=== PATIENT | male | born 1945 | race Caucasian/White ===

== ENCOUNTER 2017-04-11 11:15 | Emergency (ER) | payer MEDICARE ==
[~2017-04-11] VITALS: Ht 182.9 cm; Wt 119.0 kg
[~2017-04-11 11:15] MED LIST: ASPIRIN81 MG PO; ATORVASTATIN CA40 MG PO; CELEXA20 MG PO; DICLOFENAC SODI75 MG PO; DIVALPROEX SOD250 MG PO; HYDROXYZ HCL10 MG PO; LASIX20 MG PO; LOPRESSOR 550 MG/TAB PO; METHIMAZOLE5 MG PO; NEURONTIN800 MG PO; OXYCODONE/ACETA1 TAB PO; PENTASA250 MG PO; TRAZODONE50 MG PO
--- NOTE | 2017-04-11 11:32 | NUR ---
PT TO ROOM FOR TREATMENT
[2017-04-11] MEDS ORDERED: XALATAN 0.005%2.5 ML OP (12:03)
[2017-04-11] MEDS ORDERED: ULTRAM50 M1 PO (12:04)
[2017-04-11] MEDS ORDERED: METHIMAZOLE5 MG PO (12:10)
[2017-04-11] MEDS ORDERED: ALLERGY RE50 MCG/ACT (12:11)
[2017-04-11] MEDS ORDERED: TAMSULOSIN0.4 MG PO (12:12)
[2017-04-11 12:13] LABS: HEMATOCRIT 46.4 % (39.0-50.0); HEMOGLOBIN 16.1 g/dl (14.0-18.0); IMMATURE GRANULOCYTES 0.7 % (0.0-1.0); MEAN CELL VOLUME 89.1 fL CALC (80.0-100.0); MEAN CORPUSCULAR HGB 30.9 pG CALC (26.0-32.0); MEAN CORPUSCULAR HGB CONC 34.7 g/L CALC (32.0-36.0); NEUT# 2.89 thou/uL (1.82-7.42); RED BLOOD COUNT 5.21 mill/uL (4.70-6.10); RED CELL DISTRI WIDTH 15.5 % (11.5-15.5)
[2017-04-11] MEDS ORDERED: NEURONTIN800 MG PO (12:13)
[2017-04-11 12:14] LABS: URINE BLOOD DIPSTICK MODERATE (NEGATIVE); URINE COLOR YELLOW; URINE GLUCOSE - DIPSTICK NEGATIVE (NEGATIVE); URINE KETONE NEGATIVE (NEGATIVE); URINE LEUK ESTERASE NEGATIVE (NEGATIVE); URINE NITRITE - DIPSTICK NEGATIVE (Negative); URINE PROTEIN - DIPSTICK 100 mg/dL (NEG-TRACE); URINE SPECIFIC GRAVITY >=1.030
[2017-04-11] MEDS ORDERED: HYDROXYZINE HCL10 MG PO (12:14)
[2017-04-11 12:17] LABS: URINE BILIRUBIN - DIPSTICK NEGATIVE (NEGATIVE); URINE CLARITY CLEAR
--- NOTE | 2017-04-11 12:17 | NUR ---
PT ON CARDIAC/BP/O2 MONITOR. CHANGED INTO GOWN. PT A&Ox4. PT STATES HE LIVES WITH HIS GRANDSON & GRANDSONS TALI. PUPILS PERRLA @3. NEUROS WNL. CARDIAC MURMER AUSCULTATED. BREATHING IS EVEN 7 U
[2017-04-11 12:18] LABS: BARBITURATES NEGATIVE (NEGATIVE); COCAINE NEGATIVE (NEGATIVE); METHADONE NEGATIVE (NEGATIVE); OXCYCODONE NEGATIVE (NEGATIVE); TETRAHYDROCANNABIONOL NEGATIVE (NEGATIVE); TRICYLIC ANTIDEPRESSANTS NEGATIVE (NEGATIVE)
[2017-04-11 12:24] LABS: URINE WBC 0-2 WBC/hpf (0-5)
[2017-04-11 12:36] LABS: ALBUMIN 4.1 g/dL (3.2-5.0); ALKALINE PHOSPHATASE 98 u/l (38-126); ANION GAP 14 (6-22 (CALC)); BILIRUBIN, TOTAL 1.3 mg/dL (0.0-1.4); BUN 27 mg/dL (8-23); BUN/CREATININE RATIO 20 (12-20 (CALC)); CALCIUM 9.4 mg/dL (8.4-10.2); CARBON DIOXIDE 27 mmol/l (22-30); CHLORIDE 103 mmol/l (95-108); CREATININE 1.3 mg/dL (0.7-1.3); GFR 54 ML/MIN (>=60 (CALC)); GFR FOR AFR.AMER. > 60 ML/MIN (>=60 (CALC)); GLUCOSE 94 mg/dL (82-115); SGOT/AST 48 u/l (19-48); SGPT/ALT 31 u/l (11-66); SODIUM 140 mmol/l (137-146)
[2017-04-11 12:45] LABS: MYOGLOBIN 200 ng/mL (0 - 121)
--- NOTE | 2017-04-11 13:42 | NUR ---
PT AWAITING ADMIT ORDERS. IN STABLE CONDITION. WILL CONTINUE TO MONITOR.
--- NOTE | 2017-04-11 14:39 | NUR ---
PT RESTING IN ROOM. WAITING ON ADMIT ROOM. WILL CONTINUE TO MONITOR PT UNTIL TRANSFERED TO ANOTHER UNIT. ALL CURRENTLY WNL.
[2017-04-11 15:01] LABS: TSH, 3RD GENERATION 3.13 uIU/mL (0.47 - 4.68)
--- NOTE | 2017-04-11 15:08 | NUR ---
WALKED INTO PTS ROOM. PT HAD REMOVED HIS CARDIAC/O2/BP MONITOR AND TAKEN OUT HIS IV. PT STATES HE JUST WANTS TO LEAVE. MD & CHARGE NURSE AWARE. IV AREA WRAPPED WITH COBAN BUT PT REFUSED TO SIGN PAPERWORK OR ALLOW ME TO GET SIGNATURES ON PAPERWORK.
--- NOTE | 2017-04-11 15:08 | NUR ---
PT AMBULATED OUT OF ER W/CANE.
[2017-04-11 15:23] VITALS: BP 125/62
== END 2017-04-11 15:23 | disposition left against medical advice (07) ==
LOC: ED 11:15 → ED-I 13:01 → ED 13:01 → ED-I 13:21 → ED 14:05 → MS2 14:06
PROVIDERS: Emergency Medicine; Internal Medicine
DX: R53.1 Weakness (principal); E05.90 Thyrotoxicosis, unspecified without thyrotoxic crisis or storm; I11.0 Hypertensive heart disease with heart failure; I50.9 Heart failure, unspecified; J44.9 Chronic obstructive pulmonary disease, unspecified; N40.0 Benign prostatic hyperplasia without lower urinary tract symptoms; Z95.2 Presence of prosthetic heart valve; Z95.5 Presence of coronary angioplasty implant and graft; Z95.1 Presence of aortocoronary bypass graft; Z91.19 Patient's noncompliance with other medical treatment and regimen; R42 Dizziness and giddiness

== ENCOUNTER 2017-09-11 18:33 | Observation (INO) | payer OTHER, MEDICARE ==
[~2017-09-11] VITALS: Ht 182.9 cm; Wt 134.0 kg
[2017-09-11 17:23] VITALS: BP 167/62
[~2017-09-11 18:33] MED LIST changes: +ALLERGY RE50 MCG/ACT; +HYDROXYZINE HCL10 MG PO; +TAMSULOSIN0.4 MG PO; +ULTRAM50 M1 PO; +XALATAN 0.005%2.5 ML OP
--- NOTE | 2017-09-11 18:35 | NUR ---
TO ROOM 9 VIA W/
[2017-09-11 19:14] LABS: HEMATOCRIT 52.2 % (39.0-50.0); HEMOGLOBIN 15.8 g/dl (14.0-18.0); IMMATURE GRANULOCYTES 0.6 % (0.0-1.0); MEAN CELL VOLUME 83.3 fL CALC (80.0-100.0); MEAN CORPUSCULAR HGB 25.2 pG CALC (26.0-32.0); MEAN CORPUSCULAR HGB CONC 30.3 g/L CALC (32.0-36.0); NEUT# 5.71 thou/uL (1.82-7.42); RED BLOOD COUNT 6.27 mill/uL (4.70-6.10); RED CELL DISTRI WIDTH 15.8 % (11.5-15.5)
[2017-09-11 19:42] LABS: URINE BLOOD DIPSTICK NEGATIVE (NEGATIVE); URINE GLUCOSE - DIPSTICK NEGATIVE (NEGATIVE); URINE KETONE TRACE mg/dL (NEGATIVE); URINE LEUK ESTERASE NEGATIVE (NEGATIVE); URINE NITRITE - DIPSTICK NEGATIVE (Negative); URINE PH 5.5 (4.5-8.0); URINE PROTEIN - DIPSTICK 100 mg/dL (NEG-TRACE); URINE SPECIFIC GRAVITY >=1.030
[2017-09-11 19:43] LABS: URINE BILIRUBIN - DIPSTICK NEGATIVE (NEGATIVE); URINE CLARITY SL CLOUDY; URINE COLOR DK. YELLOW
[2017-09-11 19:49] LABS: URINE CALCIUM OXALATE CRYSTALS MANY lpf; URINE RBC 0-2 RBC/hpf (0-5); URINE WBC 0-2 WBC/hpf (0-5)
[2017-09-11 19:52] LABS: ALBUMIN 3.4 g/dL (3.2-5.0); ALKALINE PHOSPHATASE 87 u/l (38-126); AMYLASE 65 u/l (30-110); ANION GAP 14 (6-22 (CALC)); BILIRUBIN, TOTAL 0.9 mg/dL (0.0-1.4); BUN 17 mg/dL (8-23); BUN/CREATININE RATIO 16 (12-20 (CALC)); CARBON DIOXIDE 32 mmol/l (22-30); CHLORIDE 99 mmol/l (95-108); CREATININE 1.1 mg/dL (0.7-1.3); GFR > 60 ML/MIN (>=60 (CALC)); GFR FOR AFR.AMER. > 60 ML/MIN (>=60 (CALC)); LIPASE 41 u/l (23-300); POTASSIUM 4.3 mmol/l (3.5-5.1); SGOT/AST 18 u/l (19-48); SGPT/ALT 26 u/l (11-66); SODIUM 141 mmol/l (137-146); TOTAL PROTEIN 6.6 g/dL (6.3-8.2)
[2017-09-11 20:04] LABS: MYOGLOBIN 77 ng/mL (0 - 121)
--- NOTE | 2017-09-11 21:15 | NUR ---
UP TO BSC BUT ONLY PASSED FLAATUS.NO DIAARRHEA THUS FAR THIS ER VISIT
--- NOTE | 2017-09-11 22:50 | NUR ---
PHONE REPORT TO LESLIE HARTMAN ON MS
[2017-09-11] MEDS ORDERED: PROSCAR5 MG PO (22:57)
[2017-09-11] MEDS ORDERED: TAMSULOSIN HCL0.4 MG PO (22:58)
[2017-09-11] MEDS ORDERED: DEPO-TESTOS100 MG/ML IM (22:59)
--- NOTE | 2017-09-11 23:05 | NUR ---
TO MS VIA STRETCHER IN STABLE CONDITION
[2017-09-11 23:18] VITALS: BP 171/72
--- NOTE | 2017-09-11 23:18 | NUR ---
PT.ARRIVED TO THE FLOOR VIA WC ACCOMPANIED BY PONCE MULLINS OF ED. PT.APPEARS TO BE IN STABLE CONDITION UPON ARRIVING TO THE FLOOR. V/S ARE BEING ASSESSED. PT.SELF AMBULATED TO STANDING SCALE AND TO BED. PT.IS REQUESTING FOOD AT THIS TIME/PROVIDED. WILL FOLLOW-UP W/ASSESSMENT. PT.IS BEING ORIENTED TO BED,CALL SYSTEM,LIGHT,ROOM,TV AND WIFI.
--- NOTE | 2017-09-12 01:30 | NUR ---
PT.MEDICATED ORDERS PROVIDE AND FOR PAIN REPORTED 5/10 IN LOWER BACK. PT.IS UP W/LIGHTS ON READING ONLINE ON HIS IPAD. DENIES ANY OTHER NEEDS AT THIS TIME.
--- NOTE | 2017-09-12 04:10 | NUR ---
PT.V/S ASSESSED AND TELEMETRY REPOSITIONED. NO S/S OF DISTRESS NOTED AT THIS TIME. CALL LIGHT W/IN REACH AND PT.RETURNING TO SLEEP W/LIGHTS OUT.
[2017-09-12 04:16] VITALS: BP 156/69
--- NOTE | 2017-09-12 07:37 | NUR ---
REPORT RECEIVED FROM PONCE HARTMAN. PT SLEEPING. CALL LIGHT WITHIN REACH.
--- NOTE | 2017-09-12 08:30 | NUR ---
PT SITTING ON SIDE OF BED. REPORTS NAUSEA. DENIES PAIN. NO SOB NOTED. REPORTING OF CONCERNS ENCORUAGED. CALL LIGHT REVIEWED AND IN REACH. DR. COUCH NOTIFIED OF NAUSEA.
[2017-09-12 09:17] VITALS: BP 187/77
[2017-09-12 10:48] LABS: CHOLESTEROL HDL RATIO 3.6 (<4.4 (CALC)); MAGNESIUM 1.9 mg/dL (1.6-2.3)
[2017-09-12 11:21] VITALS: BP 135/36
[2017-09-12 11:27] LABS: C. DIFFICILE TOXIN A&B NEGATIVE (NEGATIVE)
--- NOTE | 2017-09-12 11:30 | NUR ---
PT REPORTS RELIEF OF NAUSEA.
--- NOTE | 2017-09-12 15:12 | NUR ---
PT SLEEPING AT THIS TIME. CALL LIGHT WITHIN REACH.
[2017-09-12 17:23] VITALS: BP 149/63
--- NOTE | 2017-09-12 17:46 | NUR ---
PT SITTING ON SIDE OF BED. REPORTS FEELING MUCH BETTER THIS AFTERNOON. VIBRAMYCIN STARTED. WILL CONTINUE TO MONITOR.
[2017-09-12 19:45] VITALS: BP 149/63; BP 167/92
--- NOTE | 2017-09-12 19:54 | NUR ---
PT SITTING AT THE SIDE OF BED ON PHONE. PT DENIES PAIN. RESP EVEN AND UNLABORED. TELE ON. LUNGS CLEAR/DIMINISHED BILAT. ABD DISTENDED,SOFT; ACTIVE BOWEL SOUNDS. +1 EDEMA NOTED BILAT LEGS, PT ENCOURAGED TO ELEVATE. PEDAL PULSES PALPATED BILAT. IV RAC PATENT; FLUSHED WITHOUT DIFFICULTY. SAFETY PRECAUTIONS REINFORCED. FREQUENT ROUNDS MADE. CALL LIGHT WITHIN REACH.
[2017-09-12 23:20] VITALS: BP 140/74
--- NOTE | 2017-09-13 00:20 | NUR ---
PT SITTING ON SIDE OF BED ON PHONE. PT DENIES ANY PAIN. TELE IN PALCE. CALL LIGHT WITHIN REACH.
--- NOTE | 2017-09-13 04:01 | NUR ---
ASSESSMENT UNCHANGED; RESP EVEN AND UNLABORED. NO DISCOMFORT NOTED. TELE ON. CALL LIGHT WITHIN REACH.
[2017-09-13 05:04] LABS: HEMATOCRIT 51.7 % (39.0-50.0); HEMOGLOBIN 15.9 g/dl (14.0-18.0); IMMATURE GRANULOCYTES 0.9 % (0.0-1.0); MEAN CELL VOLUME 82.1 fL CALC (80.0-100.0); MEAN CORPUSCULAR HGB 25.2 pG CALC (26.0-32.0); MEAN CORPUSCULAR HGB CONC 30.8 g/L CALC (32.0-36.0); NEUT# 7.15 thou/uL (1.82-7.42); RED BLOOD COUNT 6.3 mill/uL (4.70-6.10); RED CELL DISTRI WIDTH 15.5 % (11.5-15.5)
[2017-09-13 05:20] LABS: ANION GAP 16 (6-22 (CALC)); BUN 16 mg/dL (8-23); BUN/CREATININE RATIO 16 (12-20 (CALC)); CARBON DIOXIDE 30 mmol/l (22-30); CHLORIDE 97 mmol/l (95-108); GFR > 60 ML/MIN (>=60 (CALC)); GFR FOR AFR.AMER. > 60 ML/MIN (>=60 (CALC)); MAGNESIUM 1.7 mg/dL (1.6-2.3); POTASSIUM 4.8 mmol/l (3.5-5.1); SODIUM 138 mmol/l (137-146)
[2017-09-13 05:35] VITALS: BP 135/61
--- NOTE | 2017-09-13 07:25 | NUR ---
REPORT RECEIVED FROM BRENT ROLON. PT SITTING UPRIGHT IN BED. DENIES PAIN. REPORTING OF CONCERNS ENCOURAGED. PLAN OF CARE DISCUSSED. CALL LIGHT REVIEWED AND IN REACH. PT STATES UNDERSTANDING.
[2017-09-13 08:18] VITALS: BP 173/72
--- NOTE | 2017-09-13 10:20 | NUR ---
PT REQUESTING PAIN MEDICATION. ORDER FOR ULTRAM EXPLAINED. PT STATES HOW HE TAKES 1-[address] COUCH NOTIFIED AND ORDER CHANGED. ULTRAM ADMINISTERED. PT STATES PAIN IS MIDSTERNAL CHEST PAIN. NOT UNCOMMON FOR PT. EKG PERFORMED. TELE SR. DR. COUCH NOTIFIED OF CHEST PAIN.
--- NOTE | 2017-09-13 10:45 | NUR ---
PT REPORTS RELIEF OF CHEST PAIN.
[2017-09-13 11:58] VITALS: BP 191/94
--- NOTE | 2017-09-13 12:14 | NUR ---
DR. COUCH IN TO SEE PT AT THIS TIME.
[2017-09-13] MEDS ORDERED: MEDDOSEPAK PO (12:36)
[2017-09-13] MEDS ORDERED: ROBITUSSIN AC10 ML PO (12:36)
[2017-09-13] MEDS ORDERED: VIBRAMYCIN100 M2 PO (12:36)
--- NOTE | 2017-09-13 15:30 | NUR ---
PT STATES HE IS AWAITING RIDE HOME FOR DISCHARGE.
--- NOTE | 2017-09-13 17:55 | NUR ---
Discharge instructions given. Patient verbalizes understanding of same. Discharged in stable condition via Wheelchair to Home with family. All belongings sent with pt.
== END 2017-09-13 18:02 | disposition home or self-care (01) | DRG 191 ==
LOC: ED 18:33 → ED-I 22:20 → ED 22:37 → MS2 22:38
PROVIDERS: Nurse Practitioner Family; ADMIT Internal Medicine; ATTEND Internal Medicine
DX: J44.1 Chronic obstructive pulmonary disease with (acute) exacerbation (principal); Z68.41 Body mass index [BMI] 40.0-44.9, adult; I11.0 Hypertensive heart disease with heart failure; I50.9 Heart failure, unspecified; E05.90 Thyrotoxicosis, unspecified without thyrotoxic crisis or storm; I25.10 Atherosclerotic heart disease of native coronary artery without angina pectoris; R19.7 Diarrhea, unspecified; I73.9 Peripheral vascular disease, unspecified; I16.0 Hypertensive urgency; N40.0 Benign prostatic hyperplasia without lower urinary tract symptoms; K43.9 Ventral hernia without obstruction or gangrene; R19.5 Other fecal abnormalities; R11.2 Nausea with vomiting, unspecified; E66.3 Overweight; Z95.5 Presence of coronary angioplasty implant and graft; Z95.3 Presence of xenogenic heart valve; Z87.891 Personal history of nicotine dependence; Z95.828 Presence of other vascular implants and grafts
CPT/HCPCS: Q9967

== ENCOUNTER 2017-10-05 07:20 | Inpatient (IN) | payer MEDICARE ==
[~2017-10-05] VITALS: Ht 182.9 cm; Wt 132.2 kg
[~2017-10-05 07:20] MED LIST changes: +DEPO-TESTOS100 MG/ML IM; +MEDDOSEPAK PO; +PROSCAR5 MG PO; +ROBITUSSIN AC10 ML PO; +TAMSULOSIN HCL0.4 MG PO; +VIBRAMYCIN100 M2 PO
--- NOTE | 2017-10-05 07:31 | NUR ---
PT TO ROOM PER EMS, ALERT/ORIENTED X3, DENIES USING OXYGEN AT HOME, EMS GAVE NEB TREATMENT EN ROUTE TO HOSPITAL, STATES FEELS SLIGHTLY BETTER, COUGH WITH YELLOWISH SPUTUM, STATES QUIT SMOKING OVER 20 YEARS AGO
--- NOTE | 2017-10-05 08:10 | NUR ---
RHONCHI NOTED TO RIGHT LUNG AND WHEEZING TO UPPER LEFT LOBE. +1 PITTING EDEMA TO BILATERAL LEGS. BOWEL SOUNDS ACTIVE, ABD DISTENDED, PATIENT REPORTS NORMAL FOR HIM. CONTINUOUS USE OF URINAL. 350 ML OF CLEAR YELLOW URINE EMPTIED. CALL LIGHT PLACED WITHIN REACH, WILL CONTINUE TO MONITOR.
[2017-10-05 08:34] LABS: URINE BILIRUBIN - DIPSTICK NEGATIVE (NEGATIVE); URINE BLOOD DIPSTICK TRACE-INTACT (NEGATIVE); URINE CLARITY CLEAR; URINE COLOR YELLOW; URINE GLUCOSE - DIPSTICK NEGATIVE (NEGATIVE); URINE KETONE NEGATIVE (NEGATIVE); URINE LEUK ESTERASE NEGATIVE (NEGATIVE); URINE NITRITE - DIPSTICK NEGATIVE (Negative); URINE PH 5.5 (4.5-8.0); URINE PROTEIN - DIPSTICK 30 mg/dL (NEG-TRACE); URINE SPECIFIC GRAVITY 1.025
--- NOTE | 2017-10-05 08:35 | NUR ---
PATIENT CLEANED OF MODERATE INCONTINENCE. BED CHANGED AND DISPOSABLE PADS PLACED ON STRETCHED. URINAL LEFT WITHIN REACH, CALL LIGHT GIVEN, INFORMED TO CALL FOR ASSISTANCE.
[2017-10-05 08:37] LABS: HEMATOCRIT 51.5 % (39.0-50.0); HEMOGLOBIN 15.5 g/dl (14.0-18.0); IMMATURE GRANULOCYTES 0.5 % (0.0-1.0); MEAN CORPUSCULAR HGB 24.4 pG CALC (26.0-32.0); MEAN CORPUSCULAR HGB CONC 30.1 g/L CALC (32.0-36.0); NEUT# 10.49 thou/uL (1.82-7.42); RED BLOOD COUNT 6.36 mill/uL (4.70-6.10)
[2017-10-05 08:43] LABS: URINE HYALINE CAST FEW lpf (NONE-RARE); URINE RBC 0-2 RBC/hpf (0-5)
[2017-10-05 08:57] LABS: ALBUMIN 3.8 g/dL (3.2-5.0); ALKALINE PHOSPHATASE 90 u/l (38-126); ANION GAP 14 (6-22 (CALC)); BILIRUBIN, TOTAL 1.1 mg/dL (0.0-1.4); BUN 21 mg/dL (8-23); BUN/CREATININE RATIO 21 (12-20 (CALC)); CARBON DIOXIDE 27 mmol/l (22-30); CHLORIDE 102 mmol/l (95-108); GFR > 60 ML/MIN (>=60 (CALC)); GFR FOR AFR.AMER. > 60 ML/MIN (>=60 (CALC)); SGOT/AST 25 u/l (19-48); SGPT/ALT 26 u/l (11-66); SODIUM 137 mmol/l (137-146); TOTAL PROTEIN 7.1 g/dL (6.3-8.2)
[2017-10-05 09:08] LABS: MYOGLOBIN 98 ng/mL (0 - 121)
--- NOTE | 2017-10-05 09:40 | NUR ---
PATIENT RETURNS FROM RADIOLOGY IN STABLE CONDITION.
[2017-10-05] MEDS ORDERED: TRAMADOL HCL50 MG PO (09:51)
[2017-10-05] MEDS ORDERED: LISINOPRIL10 MG PO (09:52)
[2017-10-05] MEDS ORDERED: STRIVERDI2.5 MCG/AC IN (09:54)
--- NOTE | 2017-10-05 10:00 | NUR ---
PATIENT REQUEST NOT TO BE TOUCHED WHEN SLEEPING ONLY TO CALL HIS NAME OUT, REPORTS HAVING PTSD.
--- NOTE | 2017-10-05 11:00 | NUR ---
PATIENT CLEANED OF MODERATE INCONTINENCE.
--- NOTE | 2017-10-05 11:05 | NUR ---
REPORT CALLED TO BRENT GREGORY.
--- NOTE | 2017-10-05 11:08 | NUR ---
CALL PLACED CATHERINE RAYGOZA, INFORMED OF NO FLOOR ORDERS AT THIS TIME. STATES CURRENTLY WORKING ON PLACING ORDERS.
--- NOTE | 2017-10-05 11:28 | NUR ---
PATIENT TRANSPORTED TO [facility] VIA STRETCHER, BEDSIDE REPORT GIVEN TO BRENT GREGORY. CARE RELINQUISHED.
--- NOTE | 2017-10-05 11:47 | NUR ---
PT ARRIVED VIA STRETCHER ACCOMPANIED BY ER NURSE. PT ABLE TO AMBULATE WITH STEADY GAIT TO BED, NO SIGNS OF DISTRESS NOTED, RESP EVEN AND UNLABORED. 02 2L NC. NOTED DRESSING TO LLE PT STATES HE WAS SEEN BY A RETIREMENT CONSULTANT WITH THE [facility] FOR A BLISTER THAT HAD BURST. HE WAS PROVIDED WITH A HOME HEALTH NURSE FROM AN AGENCY TO PROVIDE WOUND CARE Q3DAYS. STATES HIS DRESSING IS DUE TODAY. ELECTRONIC INSTALLER AT BEDSIDE TO SEE WOUND AND DISCUSS TREATMENT FOR ADMISSION. PHOTO OBTAINED OF WOUND. PT IN AGREEMENT OF PLAN OF CARE. ADMISSION ASSESSMENT COMPLETED AT THIS TIME. CALL LIGHT IN REACH,CONTINUE TO MONITOR.
[2017-10-05 11:54] VITALS: BP 109/56
--- NOTE | 2017-10-05 13:04 | NUR ---
Drug Selected: Vancomycin Age: 71 years Weight: 130 kg Height: 72 in Gender: Male SCR: 1 mg/dl CRCL (ml/min): 73.3 Give Vancomycin 1500 mg q12 hrs NEXT TROUGH WILL BE 0100 10/07/2017 GOAL TROUGH 15-20
[2017-10-05 16:58] VITALS: BP 109/46
--- NOTE | 2017-10-05 18:10 | NUR ---
PT DUE FOR ANTIBIOTIC, NOTED IV SITE DISLODGED. NEW IV STARTED TO RW PT TOLERATED WELL. IV IN REMOVED CATHETER INTACT, CALL LIGHT IN REACH,CONTINUE TO MONITOR.
--- NOTE | 2017-10-05 20:00 | NUR ---
REPORT GIVEN AT THE BEDSIDE. PT SITTING AT THE BEDSIDE. RESP EQUAL AND UNLABORED. IV SITE IS INTACT, WITH NO FLUIDS RUNNING AT THIS TIME. PATIENT ALERT AND ORIENTED. SAFETY PRECAUTIONS REINFORCED. CALL LIGHT WITHIN REACH OF PATIENT. NO NOTED SIGNS OF DISTRESS.
[2017-10-05 20:20] VITALS: BP 133/60
--- NOTE | 2017-10-06 | NUR ---
PT ALERT AND ORIENTED. LAYING IN BED AWAKE. IV IS INTACT, SITE IS CLEAN AND DRY. ANTIBIOTICS RUNNING WITHOUT ANY COMPLICATIONS. RESP EQUAL AND UNLABORED. NO NOTED SIGNS OF DISTRESS. DISCUSSED WITH PATIENT THAT I WILL PASS, ALONG IN SHIFT REPORT HIS CONCERNS REGARDING MEDICATION CORRECTIONS. UNDERSTANDING VERBALIZED BY MR RAINEY.
--- NOTE | 2017-10-06 04:22 | NUR ---
PT RESTING IN BED WITH EYES CLOSED. ENTERED THE ROOM TO SHUT OFF ANTIBIOTICS THAT ARE COMPLETE. LINE WAS FLUSHED. RESP EQUAL AND UNLABORED. IV SITE INTACT AND FLUSHING WITHOUT COMPLICATIONS. NO NOTED SIGNS OF DISTRESS.
[2017-10-06 05:10] VITALS: BP 127/67
[2017-10-06 06:48] LABS: HEMATOCRIT 47.3 % (39.0-50.0); HEMOGLOBIN 14.1 g/dl (14.0-18.0); IMMATURE GRANULOCYTES 0.6 % (0.0-1.0); MEAN CELL VOLUME 81.1 fL CALC (80.0-100.0); MEAN CORPUSCULAR HGB 24.2 pG CALC (26.0-32.0); MEAN CORPUSCULAR HGB CONC 29.8 g/L CALC (32.0-36.0); NEUT# 12.62 thou/uL (1.82-7.42); RED BLOOD COUNT 5.83 mill/uL (4.70-6.10); RED CELL DISTRI WIDTH 17.1 % (11.5-15.5)
[2017-10-06 07:51] LABS: ALKALINE PHOSPHATASE 66 u/l (38-126); BILIRUBIN, TOTAL 1.1 mg/dL (0.0-1.4); BUN 34 mg/dL (8-23); BUN/CREATININE RATIO 31 (12-20 (CALC)); CARBON DIOXIDE 29 mmol/l (22-30); CHLORIDE 102 mmol/l (95-108); CREATININE 1.1 mg/dL (0.7-1.3); GFR > 60 ML/MIN (>=60 (CALC)); GFR FOR AFR.AMER. > 60 ML/MIN (>=60 (CALC)); SGOT/AST 14 u/l (19-48); SGPT/ALT 23 u/l (11-66); SODIUM 135 mmol/l (137-146)
[2017-10-06 07:52] LABS: ANION GAP 9 (6-22 (CALC)); POTASSIUM 5.3 mmol/l (3.5-5.1)
[2017-10-06 07:53] LABS: TOTAL PROTEIN 5.6 g/dL (6.3-8.2)
[2017-10-06 08:12] VITALS: BP 148/58
--- NOTE | 2017-10-06 08:12 | NUR ---
PT SITTING IN RECLINER AT BEDSIDE EATING BREAKFAST, NO SIGNS OF DISTRESS NOTED, RESP EVEN AND UNLABORED. VSS, ASSESSMENT COMPLETED AT THIS TIME. PT REQUESTING TO SHOWER PRIOR TO DRESSING CHANGE. CALL LIGHT IN REACH,CONTINUE TO MONITOR.
--- NOTE | 2017-10-06 13:08 | NUR ---
PT RETURNED TO BED FROM RECLINER. VANCO INFUSING, DRESSING TO LLE COMPLETED. NO S/S OF INFECTION BLISTERS APPEAR TO BE DRYING OUT, NO DRAINAGE. CLEANSED AREA WITH NS AND APPLIED SILVER CREAM AND COVERED WITH NON ADHERENT PAD AND SECURED WITH KERLEX AND COBAN. PT TOLERATED WELL. VOICES NO NEEDS OR COMPLAINTS AT THIS TIME. CALL LIGHT IN REACH ,CONTINUE TO MONITOR.
[2017-10-06 15:20] VITALS: BP 101/60
--- NOTE | 2017-10-06 15:31 | NUR ---
IV INFUSION COMPLETED, IV SL. PT SITTING ON SIDE OF BED, NO SIGNS OF DISTRESS NOTED, RESP EVEN AND UNLABORED. CALL LIGHT IN REACH,CONTINUE TO MONITOR.
[2017-10-06 19:10] VITALS: BP 114/53
--- NOTE | 2017-10-06 20:50 | NUR ---
PT OUT OF BED SITTING IN BEDSIDE CHAIR. PT DENIES PAIN. RESP EVEN AND UNLABORED WITH O2 IN PLACE. LUNGS CLEAR, DIMINISHED IN BASES. ACTIVE BOWEL SOUNDS. DRESSING TO LEFT LOWER LEG CDI. EDEMA TO LOWER LEGS, PT ENCOURAGED TO ELEVATE. PEDAL PULSES PALPATED BILAT. IV RW PATENT; FLUSHED WITHOUT DIFFICULTY. SAFETY PRECAUTIONS REINFORCED. FREQUENT ROUNDS MADE. CALL LIGHT WITHIN REACH.
--- NOTE | 2017-10-07 00:25 | NUR ---
PT RESTING IN BED ON TABLET. RESP EVEN AND UNLABORED WITH O2. PT DENIES PAIN. CALL LIGHT WITHIN REACH.
[2017-10-07 03:55] VITALS: BP 120/59
--- NOTE | 2017-10-07 04:13 | NUR ---
PT RESTING IN BED, RESP EVEN AND UNLABORED WITH O2 IN PLACE. PT DENIES PAIN. DRESSING CDI, CALL LIGHT WITHIN REACH.
[2017-10-07 05:17] LABS: HEMATOCRIT 48.6 % (39.0-50.0); HEMOGLOBIN 14.6 g/dl (14.0-18.0); MEAN CELL VOLUME 80.3 fL CALC (80.0-100.0); MEAN CORPUSCULAR HGB 24.1 pG CALC (26.0-32.0); NEUT# 11.85 thou/uL (1.82-7.42); RED BLOOD COUNT 6.05 mill/uL (4.70-6.10); RED CELL DISTRI WIDTH 17.2 % (11.5-15.5)
[2017-10-07 05:21] LABS: ANION GAP 11 (6-22 (CALC)); BUN 34 mg/dL (8-23); BUN/CREATININE RATIO 36 (12-20 (CALC)); CARBON DIOXIDE 29 mmol/l (22-30); CHLORIDE 101 mmol/l (95-108); CREATININE 0.9 mg/dL (0.7-1.3); GFR > 60 ML/MIN (>=60 (CALC)); GFR FOR AFR.AMER. > 60 ML/MIN (>=60 (CALC)); MAGNESIUM 1.9 mg/dL (1.6-2.3); POTASSIUM 5.1 mmol/l (3.5-5.1); SODIUM 137 mmol/l (137-146)
--- NOTE | 2017-10-07 07:33 | NUR ---
PT RESTING IN BED WITH EYES CLOSED, NO SIGNS OF DISTRESS NOTED, RESP EVEN AND UNLABORED. CALL LIGHT IN REACH,CONTINUE TO MONITOR.
[2017-10-07 08:17] VITALS: BP 106/41
--- NOTE | 2017-10-07 13:30 | NUR ---
PT RESTING IN BED, NO SIGNS OF DISTRESS NOTED, RESP EVEN AND UNLABORED. DRESSING TO LLE COMPLETED, PT TOLERATED WELL. PT VOICES NO NEEDS OR COMPLAINTS AT THIS TIME. CALL LIGHT IN REACH,CONTINUE TO MONITOR.
[2017-10-07 16:57] VITALS: BP 112/75
--- NOTE | 2017-10-07 20:00 | NUR ---
PATIENT SITTING UP IN THE RECLINER AWAKE ALERT AND ORIENTEDX3. O2 VIA NASAL CANNULA IN PLACE. HEP LOCK TO LEFT FOREARM INTACT-APPEARS HEALTHY AT THIS TIME. VOIDING YELLOW URINE IN URINAL-DRESSING TO LLE CDI SECURED WITH COBAN. BLE SWELLING NOTED AND ENCOURAGED TO KEEP FEET ELVATED WITH PILLOWS WHEN ABLE. TELE MONITORING DEVICE IN PLACE. SAFETY PRECAUTIONS REINFORCED.CALL LIGHT IN REACH. WILL CONT TO MONITOR.
[2017-10-07 20:04] VITALS: BP 120/59
--- NOTE | 2017-10-07 22:00 | NUR ---
HS MEDS GIVEN ORDERED. LINENS CHANGED. NO COMPLAINTS AT THIS TIME. CALL LIGHT IN REACH. SAFETY PRECAUTIONS REINFORCED.CALL LIGHT IN REACH.
[2017-10-08] VITALS (7 sets, daily range): BP systolic 126–163; BP diastolic 48–75
--- NOTE | 2017-10-08 02:14 | NUR ---
APPEARS SLEEPING AT THIS TIME WITH HOB ELEVATED, O2 VIA NASAL CANNULA IN PLACE AND EYES CLOSED. CALL LIGHT IN REACH. WILL CONT TO MONITOR.
--- NOTE | 2017-10-08 04:00 | NUR ---
PATIENT RESTING IN BED WITH O2 VIA NASAL CANNULA IN PLACE. HOB ELEVATED. CALL LIGHT IN REACH. WILL CONT TO MONITOR.
[2017-10-08 05:19] LABS: HEMATOCRIT 49.7 % (39.0-50.0); HEMOGLOBIN 15.1 g/dl (14.0-18.0); IMMATURE GRANULOCYTES 0.7 % (0.0-1.0); MEAN CELL VOLUME 79.6 fL CALC (80.0-100.0); MEAN CORPUSCULAR HGB 24.2 pG CALC (26.0-32.0); MEAN CORPUSCULAR HGB CONC 30.4 g/L CALC (32.0-36.0); NEUT# 10.31 thou/uL (1.82-7.42); RED BLOOD COUNT 6.24 mill/uL (4.70-6.10); RED CELL DISTRI WIDTH 17.4 % (11.5-15.5)
[2017-10-08 05:38] LABS: ANION GAP 12 (6-22 (CALC)); BUN 31 mg/dL (8-23); BUN/CREATININE RATIO 32 (12-20 (CALC)); CARBON DIOXIDE 29 mmol/l (22-30); CHLORIDE 99 mmol/l (95-108); GFR > 60 ML/MIN (>=60 (CALC)); GFR FOR AFR.AMER. > 60 ML/MIN (>=60 (CALC)); POTASSIUM 4.4 mmol/l (3.5-5.1); SODIUM 136 mmol/l (137-146)
--- NOTE | 2017-10-08 07:55 | NUR ---
ASSESSMENT IS COMPLETED: PT IS RELAXING IN BED WITH NO DISTRESS NOTED IV SITE IS FREE FROM REDNESS OR EDEMA. HR IS REG, PULSES ARE STRONG X4, ABD IS SOFT WITH ACTIVE BS. TELE MONITOR IN PLACE. DRESSING ON LEFT LEG IS CDI. BREATH SOUNDS ARE COARSE AND DIMINISHED. CONTINUE TO OBSERVE AND MONITOR.
--- NOTE | 2017-10-08 12:45 | NUR ---
PT IS SITTING IN THE CHAIR. NO DISTRESS NOTED. IV SITE IS FREE FROM REDNESS OR EDEMA. CONTINUE TO OBSERVE AND MONITOR.
--- NOTE | 2017-10-08 16:00 | NUR ---
PT IS RELAXING ON THE SIDE OF THE BED. WITH NO DISTRESS NOTED. IV SITE IS FREE FROM REDNESS OR EDEMA.
--- NOTE | 2017-10-08 16:50 | NUR ---
DRESSING CHANGED ON LEFT LEG, USING SILVADENE, COVRED WITH NONSTICK, KERLIX, AND WRAPPED WITH COBAN. CLEAN TECHNIQUE USED, PT TOELRATED WELL.
--- NOTE | 2017-10-08 18:00 | NUR ---
PT WENT FOR HIS ECHO CARDIOGRAM AT THIS TIME VIA . WITH STAFF.
--- NOTE | 2017-10-08 19:17 | NUR ---
PT.IS UPRIGHT ON SIDE OF BED EATING SUPPER. PT.DENIES ANY NEEDS AT THIS TIME. CALL LIGHT IS W/IN REACH AND PT.HAS BEEN ENCOURAGED TO CALL IF ANY NEEDS ARISE. NO S/S OF DISTRESS NOTED.
--- NOTE | 2017-10-08 21:59 | NUR ---
PT.MEDICATED FOR PAIN AND MEDICATIONS ORDERS PROVIDE. POC DISCUSSED AND PT.ASSESSED. LUNG SOUNDS ARE DIM LOWER AND CLEAR THROUGHOUT. ACTIVE BOWEL SOUNDS/ABD DISTENDED FIRM/NON-TENDER. LOCX4, LEFT LOWER EXTREMETY HAS DRESSING CDI W/VASELINE APPLIED TO FOOT. 150CC OF CLEAR YELLOW URINE EMPTIED FROM URINAL AT THIS TIME. PT.INSTRUCTED TO CALL IF ANY NEEDS ARISE. CALL LIGHT AT BEDSIDE.
--- NOTE | 2017-10-09 01:40 | NUR ---
PT.APPEARS TO BE SLEEPING, NO S/S OF DISTRESS NOTED AT THIS TIME. CALL LIGHT W/IN REACH
[2017-10-09 04:13] VITALS: BP 129/67
[2017-10-09 04:43] LABS: HEMATOCRIT 53.5 % (39.0-50.0); HEMOGLOBIN 16.1 g/dl (14.0-18.0); IMMATURE GRANULOCYTES 0.7 % (0.0-1.0); MEAN CELL VOLUME 79.9 fL CALC (80.0-100.0); MEAN CORPUSCULAR HGB CONC 30.1 g/L CALC (32.0-36.0); NEUT# 7.32 thou/uL (1.82-7.42); RED BLOOD COUNT 6.7 mill/uL (4.70-6.10); RED CELL DISTRI WIDTH 17.6 % (11.5-15.5)
[2017-10-09 05:17] LABS: ANION GAP 12 (6-22 (CALC)); BUN 33 mg/dL (8-23); BUN/CREATININE RATIO 35 (12-20 (CALC)); CARBON DIOXIDE 33 mmol/l (22-30); CHLORIDE 96 mmol/l (95-108); CREATININE 0.9 mg/dL (0.7-1.3); GFR > 60 ML/MIN (>=60 (CALC)); GFR FOR AFR.AMER. > 60 ML/MIN (>=60 (CALC)); MAGNESIUM 2.2 mg/dL (1.6-2.3); POTASSIUM 4.7 mmol/l (3.5-5.1); SODIUM 137 mmol/l (137-146)
[2017-10-09 08:00] VITALS: BP 165/64
--- NOTE | 2017-10-09 08:00 | NUR ---
ASSESSMENT IS COMPLETED: PT IS RELAXING IN BED WITH NO DISTRESS NOTED. IV SITE IS FREE FROM REDNESS OR EDEMA. HR IS REG, PULSES ARE STRONG X4, ABD IS SOFT WITH ACTIVE BS. DRESSING ON LEFT LEG IS CDI CONTINUE TO OSBERVE AND MONITOR.
--- NOTE | 2017-10-09 12:00 | NUR ---
PT HAS BEEN SITTING ON THE SIDE OF THE BED. WITH NO DISTRESS NOTED. IV SITE IS FREE FROM REDNESS OR EDEMA. CONTINEU TO OSBERVE AND MONITOR.
[2017-10-09 12:02] VITALS: BP 166/64
--- NOTE | 2017-10-09 13:45 | NUR ---
S: SAYDA RAINEY is a 71 M who presents with cellulitis of left leg. He has a history of heart disease, lung disease, and krohns disease COPD CHF. All medications in patient's chart were reviewed. O: VS: BP 149/67, P 93, RR 18, T 101.5 W 132.2 kg, HT 182.9 cm, Scr= 0.9, CrCl= 94 ml/min A: Vancomycin trough goal is 10-15. Vancomycin trough was 16 from 10/07 not in the goal range with dose of vancomycin 1500 mg IV Q12H. Vancomycin was then discontinued. Decrease in dose warranted now that vancomycin is being restarted. Blood culture is pending. P: Patient is on Levaquin 750 mg IV Q24H. Vancomycin ordered for pharmacy to dose. Restart Vancomycin at 1250 mg IV Q12H. Vancomycin trough is drawn before the 5th dose on 10/11/17 @13:30. Vancomycin goal trough is between 10-15 mcg/ml. Pharmacy will follow and or advise on antibiotics use as needed.
--- NOTE | 2017-10-09 14:45 | NUR ---
NEW IV SITE DUE TO THE OTHER ONE SENSITIVE TO FLUSH. CHANGED TO RFA WITH 2 ATTEMPTS. 1 BY THIS BUSINESS EDUCATION INSTRUCTOR AND THE OTHER BY Abdi WARREN RN. PT TOLERATED WELL. REMOVED THE IV SITE IN LFA AT 1500,
--- NOTE | 2017-10-09 15:40 | NUR ---
DRESSING CHANGED DRESSING ON LEFT LEG, CLEANED OFF THE SILVADENE. PLACED FRESH SILVADENE, AND VASELINE PER PT REQUEST, COVERED WITH NON STICK, KERLIX AND WRAPPED WITH COBAN. PT TOLERATEF WELL. IV SITE IN LFA WAS DISCONTINUED AND CATHETER INTACT..
[2017-10-09 15:50] VITALS: BP 141/73
--- NOTE | 2017-10-09 19:30 | NUR ---
PT SITTING UP ON SIDE OF BED EATING DINNER. PT IS ALERT AND ORIENTED X3. PERRLA. SHIFT ASSESSMENT COMPLETED AT THIS TIME. PLAN OF CARE REVIEWED WITH PT. PT VERBALIZED UNDERSTANDING. CALL LIGHT IN REACH. WILL CONTINUE TO MONITOR
[2017-10-09 19:37] VITALS: BP 134/67
[2017-10-09 22:55] VITALS: BP 123/64
[2017-10-10] VITALS: BP 136/79
--- NOTE | 2017-10-10 00:18 | NUR ---
PT RESTING IN BED WATCHING TV. RESP ARE EVEN AND UNLABORED. NO DISTRESS NOTED. CALL LIGHT IN REACH. WILL CONTINUE TO MONITOR
--- NOTE | 2017-10-10 04:00 | NUR ---
PT RESTING IN BED WITH EYES CLOSED. RESP ARE EVEN AND UNLABORED. NO DISTRESS NOTED. CALL LIGHT IN REACH. WILL CONTINUE TO MONITOR
[2017-10-10 04:05] VITALS: BP 139/68
[2017-10-10 04:30] LABS: HEMATOCRIT 51.2 % (39.0-50.0); HEMOGLOBIN 15.6 g/dl (14.0-18.0); IMMATURE GRANULOCYTES 0.9 % (0.0-1.0); MEAN CELL VOLUME 79.3 fL CALC (80.0-100.0); MEAN CORPUSCULAR HGB 24.1 pG CALC (26.0-32.0); MEAN CORPUSCULAR HGB CONC 30.5 g/L CALC (32.0-36.0); NEUT# 6.41 thou/uL (1.82-7.42); RED BLOOD COUNT 6.46 mill/uL (4.70-6.10); RED CELL DISTRI WIDTH 17.3 % (11.5-15.5)
[2017-10-10 04:45] LABS: ANION GAP 9 (6-22 (CALC)); BUN 37 mg/dL (8-23); BUN/CREATININE RATIO 42 (12-20 (CALC)); CARBON DIOXIDE 32 mmol/l (22-30); CHLORIDE 98 mmol/l (95-108); CREATININE 0.9 mg/dL (0.7-1.3); GFR > 60 ML/MIN (>=60 (CALC)); GFR FOR AFR.AMER. > 60 ML/MIN (>=60 (CALC)); MAGNESIUM 2.3 mg/dL (1.6-2.3); POTASSIUM 4.4 mmol/l (3.5-5.1); SODIUM 134 mmol/l (137-146)
--- NOTE | 2017-10-10 06:02 | NUR ---
medical record consents obtained and faxed see sheets in chart
--- NOTE | 2017-10-10 07:01 | NUR ---
BEDSIDE REPORT RECEIVED BY COLIN. PT IS SLEEPING ON HIS LEFT SIDE WITH NO S/S OF DISTRESS NOTED. CALL LIGHT IN REACH.
[2017-10-10 07:53] VITALS: BP 132/80
--- NOTE | 2017-10-10 08:05 | NUR ---
PT IS SITTING IN THE SIDE OF THE BED. ASSESMENT DONE TELE IN PLACE. LUNG SOUND DIMIMISHED. # 22 RW THAT APPEARS HEALTHY. PT DENIES NEEDS AT THIS TIME. SAFETY PRECAUTIONS REINFORCED AND CALL LIGHT IN REACH.
--- NOTE | 2017-10-10 12:00 | NUR ---
PT IS SITTING IN RECLINER EATING HIS LUNCH WITH NO S/S OF DISTRESS NOTED. PT DENIES NEEDS AT THIS TIME. CALL LIGHT IN REACH. FAMILY IN ROOM.
[2017-10-10 12:16] VITALS: BP 141/69
--- NOTE | 2017-10-10 13:35 | NUR ---
Tranfer in stable condition via Medical Transport to [facility] with staff. All belongings sent with pt.
--- NOTE | 2017-10-10 14:21 | NUR ---
REPORT GIVEN TO NURSE EJ FROM [facility].
== END 2017-10-10 13:35 | disposition short-term general hospital (02) | DRG 314 ==
LOC: ED 07:20 → ED-I 10:24 → ED 10:31 → MS2 10:32
PROVIDERS: Family Medicine; Nurse Practitioner; Nurse Practitioner Family; ADMIT Internal Medicine; ATTEND Internal Medicine
DX: T82.857A Stenosis of other cardiac prosthetic devices, implants and grafts, initial encounter (principal); I50.33 Acute on chronic diastolic (congestive) heart failure; J44.1 Chronic obstructive pulmonary disease with (acute) exacerbation; K50.90 Crohn's disease, unspecified, without complications; L03.116 Cellulitis of left lower limb; L97.829 Non-pressure chronic ulcer of other part of left lower leg with unspecified severity; I11.0 Hypertensive heart disease with heart failure; I16.0 Hypertensive urgency; I87.8 Other specified disorders of veins; I25.10 Atherosclerotic heart disease of native coronary artery without angina pectoris; E05.90 Thyrotoxicosis, unspecified without thyrotoxic crisis or storm; E66.9 Obesity, unspecified; K59.09 Other constipation; I25.5 Ischemic cardiomyopathy; E78.5 Hyperlipidemia, unspecified; G47.33 Obstructive sleep apnea (adult) (pediatric); G89.22 Chronic post-thoracotomy pain; F10.10 Alcohol abuse, uncomplicated; K46.9 Unspecified abdominal hernia without obstruction or gangrene; B95.7 Other staphylococcus as the cause of diseases classified elsewhere; Y83.1 Surgical operation with implant of artificial internal device as the cause of abnormal reaction of the patient, or of later complication, without mention of misadventure at the time of the procedure; Z68.39 Body mass index [BMI] 39.0-39.9, adult; Z95.3 Presence of xenogenic heart valve; Z95.1 Presence of aortocoronary bypass graft; Z95.5 Presence of coronary angioplasty implant and graft; Z87.891 Personal history of nicotine dependence
CPT/HCPCS: G0378; J1650; J3370

== ENCOUNTER 2017-11-04 22:26 | Emergency (ER) | payer OTHER, MEDICARE ==
[~2017-11-04] VITALS: Ht 182.9 cm; Wt 131.0 kg
[~2017-11-04 22:26] MED LIST changes: +LISINOPRIL10 MG PO; +STRIVERDI2.5 MCG/AC IN; +TRAMADOL HCL50 MG PO
[2017-11-04 22:50] LABS: HEMATOCRIT 47.2 % (39.0-50.0); IMMATURE GRANULOCYTES 1.4 % (0.0-1.0); MEAN CELL VOLUME 80.1 fL CALC (80.0-100.0); MEAN CORPUSCULAR HGB 23.8 pG CALC (26.0-32.0); MEAN CORPUSCULAR HGB CONC 29.7 g/L CALC (32.0-36.0); NEUT# 4.07 thou/uL (1.82-7.42); RED BLOOD COUNT 5.89 mill/uL (4.70-6.10); RED CELL DISTRI WIDTH 19.6 % (11.5-15.5)
[2017-11-04 23:19] LABS: ALBUMIN 3.2 g/dL (3.2-5.0); ALKALINE PHOSPHATASE 85 u/l (38-126); BUN 16 mg/dL (8-23); BUN/CREATININE RATIO 19 (12-20 (CALC)); CARBON DIOXIDE 32 mmol/l (22-30); CHLORIDE 103 mmol/l (95-108); CREATININE 0.8 mg/dL (0.7-1.3); GFR > 60 ML/MIN (>=60 (CALC)); GFR FOR AFR.AMER. > 60 ML/MIN (>=60 (CALC)); POTASSIUM 3.9 mmol/l (3.5-5.1); SGPT/ALT 18 u/l (11-66); TOTAL PROTEIN 5.8 g/dL (6.3-8.2)
[2017-11-04 23:56] LABS: ANION GAP 10 (6-22 (CALC)); SGOT/AST 25 u/l (19-48); SODIUM 141 mmol/l (137-146)
[2017-11-05 01:30] VITALS: BP 145/75
== END 2017-11-05 01:30 | disposition short-term general hospital (02) | DRG 292 ==
LOC: ED 22:26
PROVIDERS: Emergency Medicine
DX: I50.9 Heart failure, unspecified (principal); K50.90 Crohn's disease, unspecified, without complications; J44.9 Chronic obstructive pulmonary disease, unspecified; Z95.1 Presence of aortocoronary bypass graft

== ENCOUNTER 2017-12-05 13:50 | Emergency (ER) | payer OTHER, MEDICARE ==
[~2017-12-05] VITALS: Ht 182.9 cm; Wt 126.0 kg
[2017-12-05 14:44] LABS: HEMATOCRIT 48.9 % (39.0-50.0); HEMOGLOBIN 15.1 g/dl (14.0-18.0); IMMATURE GRANULOCYTES 1.5 % (0.0-5.0); MEAN CELL VOLUME 79.9 fL CALC (80.0-100.0); MEAN CORPUSCULAR HGB 24.7 pG CALC (26.0-32.0); MEAN CORPUSCULAR HGB CONC 30.9 g/L CALC (32.0-36.0); NEUT# 19.71 thou/uL (1.82-7.42); RED BLOOD COUNT 6.12 mill/uL (4.70-6.10); RED CELL DISTRI WIDTH 21.5 % (11.5-15.5)
[2017-12-05] MEDS ORDERED: PREDNISONE10 MG PO (14:45)
[2017-12-05] MEDS ORDERED: CLOPIDOGREL75 MG PO (14:45)
[2017-12-05] MEDS ORDERED: K-TAB20 MEQ PO (14:47)
[2017-12-05] MEDS ORDERED: ACID CONTROL MA20 MG PO (14:48)
[2017-12-05] MEDS ORDERED: FUROSEMIDE20 MG PO (14:50)
[2017-12-05] MEDS ORDERED: SPIRONOLACT25 MG PO (14:51)
[2017-12-05 15:02] LABS: ALBUMIN 3.4 g/dL (3.2-5.0); BILIRUBIN, TOTAL 1.8 mg/dL (0.0-1.4)
[2017-12-05 15:03] LABS: CREATININE 2.1 mg/dL (0.7-1.3); POTASSIUM 4.9 mmol/l (3.5-5.1)
[2017-12-05 16:07] VITALS: BP 100/67
== END 2017-12-05 15:50 | disposition short-term general hospital (02) | DRG 315 ==
LOC: ED 13:50
PROVIDERS: Emergency Medicine
DX: I95.9 Hypotension, unspecified (principal); R11.0 Nausea; I25.9 Chronic ischemic heart disease, unspecified; K50.90 Crohn's disease, unspecified, without complications; J44.9 Chronic obstructive pulmonary disease, unspecified; I50.9 Heart failure, unspecified

== ENCOUNTER 2017-12-14 09:27 | Emergency (ER) | payer OTHER, MEDICARE ==
[~2017-12-14] VITALS: Ht 182.9 cm; Wt 135.0 kg
[~2017-12-14 09:27] MED LIST changes: +ACID CONTROL MA20 MG PO; +CLOPIDOGREL75 MG PO; +FUROSEMIDE20 MG PO; +K-TAB20 MEQ PO; +PREDNISONE10 MG PO; +SPIRONOLACT25 MG PO
[2017-12-14 10:06] LABS: URINE BILIRUBIN - DIPSTICK NEGATIVE (NEGATIVE); URINE BLOOD DIPSTICK NEGATIVE (NEGATIVE); URINE COLOR YELLOW; URINE GLUCOSE - DIPSTICK NEGATIVE (NEGATIVE); URINE KETONE NEGATIVE (NEGATIVE); URINE LEUK ESTERASE NEGATIVE (NEGATIVE); URINE NITRITE - DIPSTICK NEGATIVE (Negative); URINE PH 5.5 (4.5-8.0); URINE PROTEIN - DIPSTICK TRACE mg/dL (NEG-TRACE); URINE SPECIFIC GRAVITY >=1.030
[2017-12-14 10:14] LABS: URINE CLARITY CLEAR
[2017-12-14 10:25] LABS: IMMATURE GRANULOCYTES 1.3 % (0.0-5.0); MEAN CELL VOLUME 80.1 fL CALC (80.0-100.0); MEAN CORPUSCULAR HGB 24.9 pG CALC (26.0-32.0); MEAN CORPUSCULAR HGB CONC 31.1 g/L CALC (32.0-36.0); NEUT# 18.62 thou/uL (1.82-7.42); RED BLOOD COUNT 7.1 mill/uL (4.70-6.10); RED CELL DISTRI WIDTH 22.4 % (11.5-15.5)
[2017-12-14 10:26] LABS: HEMATOCRIT 56.9 % (39.0-50.0); HEMOGLOBIN 17.7 g/dl (14.0-18.0)
[2017-12-14 10:43] LABS: ALBUMIN 3.8 g/dL (3.2-5.0); ALKALINE PHOSPHATASE 96 u/l (38-126); BILIRUBIN, TOTAL 1.6 mg/dL (0.0-1.4); BUN 36 mg/dL (8-23); CARBON DIOXIDE 27 mmol/l (22-30); CHLORIDE 100 mmol/l (95-108); LIPASE 91 u/l (23-300); SGOT/AST 20 u/l (19-48); SGPT/ALT 38 u/l (11-66); SODIUM 139 mmol/l (137-146); TOTAL PROTEIN 6.4 g/dL (6.3-8.2)
[2017-12-14 10:45] LABS: ANION GAP 17 (6-22 (CALC)); BUN/CREATININE RATIO 33 (12-20 (CALC)); POTASSIUM 4.9 mmol/l (3.5-5.1)
[2017-12-14 10:46] LABS: CREATININE 1.1 mg/dL (0.7-1.3); GFR > 60 ML/MIN (>=60 (CALC)); GFR FOR AFR.AMER. > 60 ML/MIN (>=60 (CALC))
[2017-12-14 11:31] VITALS: BP 100/60
== END 2017-12-14 11:25 | disposition short-term general hospital (02) | DRG 392 ==
LOC: ED 09:27
PROVIDERS: Family Medicine
PROC: 06HY33Z Insertion of Infusion Device into Lower Vein, Percutaneous Approach (ICD-10-PCS; principal; 2017-12-14)
DX: R10.0 Acute abdomen (principal); J44.9 Chronic obstructive pulmonary disease, unspecified; I50.9 Heart failure, unspecified

== ENCOUNTER 2018-05-24 22:41 | Inpatient (IN) | payer MEDICARE ==
[~2018-05-24] VITALS: Ht 182.9 cm; Wt 116.0 kg
--- NOTE | 2018-05-24 23:21 | NUR ---
A/O M WITH COUGH FEVERS DRAINAGE FROM OLD SURG SITE ON ABD WHEEZING BIBASAL,OS IS P AND M
--- NOTE | 2018-05-24 23:27 | NUR ---
BREATHING TREATMENT GIVEN.
[2018-05-24 23:32] LABS: HEMATOCRIT 38.2 % (39.0-50.0); HEMOGLOBIN 11.4 g/dl (14.0-18.0); IMMATURE GRANULOCYTES 0.5 % (0.0-5.0); MEAN CELL VOLUME 76.4 fL CALC (80.0-100.0); MEAN CORPUSCULAR HGB 22.8 pG CALC (26.0-32.0); MEAN CORPUSCULAR HGB CONC 29.8 g/L CALC (32.0-36.0); NEUT# 10.97 thou/uL (1.82-7.42); RED CELL DISTRI WIDTH 18.3 % (11.5-15.5)
[2018-05-24 23:46] LABS: ALBUMIN 3.4 g/dL (3.2-5.0); ALKALINE PHOSPHATASE 89 u/l (38-126); ANION GAP 16 (6-22 (CALC)); BILIRUBIN, TOTAL 1.1 mg/dL (0.0-1.4); BUN 14 mg/dL (8-23); BUN/CREATININE RATIO 19 (12-20 (CALC)); CARBON DIOXIDE 24 mmol/l (22-30); CHLORIDE 103 mmol/l (95-108); CREATININE 0.7 mg/dL (0.7-1.3); GFR > 60 ML/MIN (>=60 (CALC)); GFR FOR AFR.AMER. > 60 ML/MIN (>=60 (CALC)); SGOT/AST 27 u/l (19-48); SODIUM 139 mmol/l (137-146); TOTAL PROTEIN 6.1 g/dL (6.3-8.2)
[2018-05-25] VITALS (11 sets, daily range): BP systolic 98–137; BP diastolic 46–77
--- NOTE | 2018-05-25 00:06 | NUR ---
DR Martinez INFORMED OF LACTIC ACID LAB 2.6 NNO NOW
--- NOTE | 2018-05-25 00:13 | NUR ---
A/O F WITH ANXIETY NO PAIN.W\P\D SKIN MOIST PINK OS
--- NOTE | 2018-05-25 00:43 | NUR ---
IV SALINE BOLUS BEGUN UPON PT'S RETURN FROM CT PT REMAINS A/OX3 NO COUGH NO CONGESTION ST NO ECTOPY ON MONITOR
--- NOTE | 2018-05-25 02:10 | NUR ---
THERE IS A 2" SKIN TEAR R FOREARM C/D NOT BLEEDING I IRRIG WITH NSS APPLIED NEOSPORIN OINT STERISTRIPS AND NONADHEARING DSG STERILE ROLL GAUZE NO REDNESS NO DRAINAGE NO ODORS
--- NOTE | 2018-05-25 02:10 | NUR ---
DR Martinez INFORMED OF SKIN TEAR
--- NOTE | 2018-05-25 02:55 | NUR ---
PHONE REPORT TO NURSE MARTINEZ ON [facility]
--- NOTE | 2018-05-25 03:00 | NUR ---
PT TRANSPORTED ON TELE O2 3L,IVPB VANCO TO [facility] RM 281 IN STABLE CONDITION BEDSIDE REPORT UPDATE TO NURSE JUAN
--- NOTE | 2018-05-25 04:43 | NUR ---
REPORT GIVEN BY DAVID RN. PATIENT ARRIVED VIA STRECHER AT 0300. PATIENT ALERT AND ORIENTED X 4. RESP EVEN AND UNLABORED, O2 3L NC. RESP EVEN AND UNLABORED. NO S/S OF DISTRESS NOTED. PATIENT ORIENTED TO ROOM, CALL LIGHT, AND BED. FALL PRECAUTIONS IN PLACE. PLAN OF CARE DISCUSSED. PATIENT INFORMED TO CALL WITH ANY QUESTIONS OR CONCERNS.
--- NOTE | 2018-05-25 05:47 | NUR ---
DRESSING CHANGE PERFORMED ON MIDLINE ABD WOUND AT 0400. SMALL AMOUNT OF COLLADO DRAINAGE PRESENT. WET TO DRY DRESSING CHANGE PERFORMED.
--- NOTE | 2018-05-25 07:05 | NUR ---
PT RESTING IN BED, DROWSY. AROUSED TO VERBAL STIMULI. PT ALERT AND ORIENTED X3, RESP EVEN AND UNLABORED 02 3L NC. IVF INFUSING, PT HAS DRESSING TO SKIN TEAR TO RFA;DRESSING CDI. PT HAS DRESSING TO HEALING MIDLINE INCISION TO ABD, DRESSING CDI. ASSESSMENT COMPLETED, CALL LIGHT IN REACH,CONTINUE TO MONITOR.
--- NOTE | 2018-05-25 10:15 | NUR ---
Vancomycin consult Age: 72 yo Serum creatinine: 1 mg/dL (rounded from 0.7 for age) Height: 72.0 Inches Weight (kg): 109.9 IBW (kg): 77.60 Dosing wt(kg): 109.9 Estimated Creatinine clearance (ml/min): 72.2 CRCL method: Cockcroft and Gault using ibw(default). Vd (liters): 76.9 (factor used: 0.7 L/kg) Juan A (hr-1): 0.064 Half life (hrs): 10.83 Vancomycin 1500 mg q 12 hrs with an expected Cpeak of 34 mcg/ml and an expected Ctrough of 18 mcg/ml
[2018-05-25 10:21] LABS: HEMATOCRIT 37.2 % (39.0-50.0); HEMOGLOBIN 11.1 g/dl (14.0-18.0); IMMATURE GRANULOCYTES 0.7 % (0.0-5.0); MEAN CELL VOLUME 77.2 fL CALC (80.0-100.0); MEAN CORPUSCULAR HGB CONC 29.8 g/L CALC (32.0-36.0); NEUT# 13.63 thou/uL (1.82-7.42); RED BLOOD COUNT 4.82 mill/uL (4.70-6.10); RED CELL DISTRI WIDTH 18.2 % (11.5-15.5)
[2018-05-25 10:42] LABS: ANION GAP 16 (6-22 (CALC)); BUN 17 mg/dL (8-23); BUN/CREATININE RATIO 24 (12-20 (CALC)); CARBON DIOXIDE 25 mmol/l (22-30); CHLORIDE 101 mmol/l (95-108); CREATININE 0.7 mg/dL (0.7-1.3); GFR > 60 ML/MIN (>=60 (CALC)); GFR FOR AFR.AMER. > 60 ML/MIN (>=60 (CALC)); POTASSIUM 3.8 mmol/l (3.5-5.1); SODIUM 138 mmol/l (137-146)
[2018-05-25 10:44] LABS: MAGNESIUM 1.7 mg/dL (1.6-2.3)
[2018-05-25 11:40] LABS: URINE BILIRUBIN - DIPSTICK NEGATIVE (NEGATIVE); URINE BLOOD DIPSTICK NEGATIVE (NEGATIVE); URINE COLOR YELLOW; URINE GLUCOSE - DIPSTICK 100 mg/dL (NEGATIVE); URINE KETONE NEGATIVE (NEGATIVE); URINE LEUK ESTERASE NEGATIVE (NEGATIVE); URINE NITRITE - DIPSTICK NEGATIVE (Negative); URINE PROTEIN - DIPSTICK NEGATIVE (NEG-TRACE); URINE UROBILINOGEN - DIPSTICK 0.2 E.U./dL (0.2)
--- NOTE | 2018-05-25 11:40 | NUR ---
INFORMED BY CATHERINE THAT PT DOES NOT WANT HIS DAUGHTER TO RECEIVE ANY INFORMATION REGARDING HIS STAY IN THE HOSPITAL.
--- NOTE | 2018-05-25 14:49 | NUR ---
PT MEDICATED WITH TRAMADOL, IV VANCO COMPLETED. STARTED ZOSYN, CALL LIGHT IN REACH,CONTINUE TO MONITOR.
--- NOTE | 2018-05-25 16:50 | NUR ---
PT TAKEN TO DOWN TO RADIOLOGY FOR CT, NO SIGNS OF DISTRESS NOTED, CONTINUE TO MONITOR.
--- NOTE | 2018-05-25 19:30 | NUR ---
PATIENT RESTING INBED AT THIS TIME WITH FAMILY AT BEDSIDE. PATIENT IS AWAKE ALERT AND ORIENTEDX3. PATIENT WITH NO COMPLAINTS AT THIS TIME. PATIENT WITH O2 VIA NASAL CANNULA IN PL [place] AT 2LPM. IV SITE TO RIGHT FOREARM INTACT WITH IVF 1/2NS PATENT AND INFUSING AT 125CC/HR. ABD IS DISTENDED WITH DRESSING TO ABD CDI. DRESSING TO RIGHT FOREARM CDI WELL. TELE MONITOR IN PLACE. SAFETY PRECAUTIONS REINFORCED. CALL LIGHT IN REACH. WILL CONT TO MONITOR.
--- NOTE | 2018-05-25 20:00 | NUR ---
dr vincent called this tech writer. informed of pts impending transfer. orders rec'd.
--- NOTE | 2018-05-25 20:00 | NUR ---
RECIEVED HUGH FROM DR. STRAUSS [facility] WHO STATES THAT CT OF [facility] DID SHOW PE TO RIGHT LUNG. DR. GRIJALVA CALLED WITH THE RESULTS AND RECEIVED ORDER TO TRANSFER PATIENT TO ICU AND WILL ORDER HEP GTT. PATIENT WAS MADE AWARE OF TRANSFER TO ICU AND HEPARIN TREATMENT. 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 PATIENT WAS TRANSFERRED VIA BED WITH O2 AT 2LPM TO ICU BED 2. REPORT GIVEN TO SALVATORE.
--- NOTE | 2018-05-25 20:10 | NUR ---
rec'd from medsurg per bed to icu3. report rec'd per [facility]. denies resp diff. o2 cont per nc. bus monitor shows sinus rhythm occas pvc. #22 rfa 1/2ns infusing @ 125cchr. oriented to room. fall precautions cont.
--- NOTE | 2018-05-25 20:20 | NUR ---
lab here. blood drawn.
[2018-05-25 20:35] LABS: HEMATOCRIT 35.1 % (39.0-50.0); HEMOGLOBIN 10.5 g/dl (14.0-18.0); IMMATURE GRANULOCYTES 0.6 % (0.0-5.0); MEAN CELL VOLUME 77.7 fL CALC (80.0-100.0); MEAN CORPUSCULAR HGB 23.2 pG CALC (26.0-32.0); MEAN CORPUSCULAR HGB CONC 29.9 g/L CALC (32.0-36.0); NEUT# 12.92 thou/uL (1.82-7.42); RED BLOOD COUNT 4.52 mill/uL (4.70-6.10); RED CELL DISTRI WIDTH 17.8 % (11.5-15.5)
[2018-05-25 20:52] LABS: ACT PARTIAL THROMBO TIME 35.9 SECONDS (20.0-32.5); INTERNATIONAL NORMALIZED RATIO 2.1 RATIO (0.7-1.3); PROTHROMBIN TIME 21.6 SECONDS (9.0-12.5)
--- NOTE | 2018-05-25 21:00 | NUR ---
attemptes x1 per [facility] for iv start without success. speech pathology supervisor notified of need for iv.
--- NOTE | 2018-05-25 21:10 | NUR ---
link from [facility] called this sports writer. heparin dose rec'd.
--- NOTE | 2018-05-25 23:50 | NUR ---
awake. on cell phone. denies distress. o2 cont. cardiac cath technologist shows sinus rhythm.
[2018-05-26] VITALS (19 sets, daily range): BP systolic 106–188; BP diastolic 55–83
--- NOTE | 2018-05-26 02:00 | NUR ---
remains awake. no resp diff. o2 cont per nc. shelter monitor shows sinus rhythm 1st degree avb ivcd.
--- NOTE | 2018-05-26 03:15 | NUR ---
pt instructs resources representative he has been incont several times. assisted to bsc. linens changed.
--- NOTE | 2018-05-26 04:40 | NUR ---
lab here. blood drawn.
[2018-05-26 04:57] LABS: HEMATOCRIT 34.9 % (39.0-50.0); HEMOGLOBIN 10.4 g/dl (14.0-18.0); IMMATURE GRANULOCYTES 0.4 % (0.0-5.0); MEAN CELL VOLUME 76.5 fL CALC (80.0-100.0); MEAN CORPUSCULAR HGB 22.8 pG CALC (26.0-32.0); MEAN CORPUSCULAR HGB CONC 29.8 g/L CALC (32.0-36.0); NEUT# 11.7 thou/uL (1.82-7.42); RED BLOOD COUNT 4.56 mill/uL (4.70-6.10); RED CELL DISTRI WIDTH 18.2 % (11.5-15.5)
[2018-05-26 05:13] LABS: ALBUMIN 3.1 g/dL (3.2-5.0); ALKALINE PHOSPHATASE 74 u/l (38-126); AMYLASE < 30 u/l (30-110); ANION GAP 13 (6-22 (CALC)); BILIRUBIN, TOTAL 0.4 mg/dL (0.0-1.4); BUN 17 mg/dL (8-23); BUN/CREATININE RATIO 26 (12-20 (CALC)); CARBON DIOXIDE 24 mmol/l (22-30); CHLORIDE 105 mmol/l (95-108); CREATININE 0.7 mg/dL (0.7-1.3); GFR > 60 ML/MIN (>=60 (CALC)); GFR FOR AFR.AMER. > 60 ML/MIN (>=60 (CALC)); LIPASE 83 u/l (23-300); MAGNESIUM 1.9 mg/dL (1.6-2.3); POTASSIUM 4.2 mmol/l (3.5-5.1); SGOT/AST 23 u/l (19-48); SODIUM 138 mmol/l (137-146); TOTAL PROTEIN 6.1 g/dL (6.3-8.2)
--- NOTE | 2018-05-26 06:15 | NUR ---
lab here. ptt redrawn.
--- NOTE | 2018-05-26 07:03 | NUR ---
PTT RESULTS ARE HIGH WERE CONFIRMED ON A SECOND DRAW OF 236.2. HEPARIN WAS STOPPED FOR 60MIN PER PROTOCOL. WILL RESTART AND REDRAW AT 1400
--- NOTE | 2018-05-26 07:15 | NUR ---
ASSESSMENT IS COMPLETED: IV SITES ARE FREE FROM REDNESS OR EDEMA. HR IS REG,PULSES ARE STRONG X4, ABD IS SOFT WITH ACTIVE BS. BREATH SOUNDS ARE CLEAR BILATERALLY. DRESSING ON ABD IS CDI. STERI STRIP S IN PLACE ON R ARM. CONTINUE TO OBSERVE AND MONITOR. CALL CONKLIN WITHIN REACH.
--- NOTE | 2018-05-26 10:10 | NUR ---
IN TO VISIT WITH PT. INFORMED PT OF WANTING AN US OF THE LEGS. START COUMADIN, AND CONTINUE WITH HEPARIN. WOULD LIKE TO HAVE A FILTER PLACED WILL CHECK WITH PHYSICIAN TOMORROW.
[2018-05-26 10:34] LABS: INTERNATIONAL NORMALIZED RATIO 2.3 RATIO (0.7-1.3); PROTHROMBIN TIME 23.4 SECONDS (9.0-12.5)
--- NOTE | 2018-05-26 12:00 | NUR ---
PT IS SITTING IN THE CHAIR. IV SITE IS FREE FROM REDNESS OR EDEMA./
--- NOTE | 2018-05-26 14:00 | NUR ---
PT REMAINS SITTING IN THE CHAIR. NO DISTRESS NOTED. CONTINUE TO OBSERVE AND MONITOR.
--- NOTE | 2018-05-26 15:05 | NUR ---
INFORMED DR. SHERWOOD RE: PTT RESULT.
--- NOTE | 2018-05-26 16:09 | NUR ---
PT IS REHOOKED UP TO HEPARIN. PER PROTOCOL. PTT WAS 116.1 AT 1454. BACK INTO BED FOR THE US TECH TO US THE LEFT LEG.
--- NOTE | 2018-05-26 17:46 | NUR ---
PT IS RELAXING IN BED WITH NO DISTRESS NOTED. IV SITE IS FREE FROM REDNESS OR EDEMA. PT HAS BEEN INCONTINENT ALL DAY. SEVERAL BED CHANGES. CONTINUE TO OBSERVE AND MONITOR
--- NOTE | 2018-05-26 19:00 | NUR ---
PT SITTING UP IN BED ON PHONE. PT IS ALERT AND ORIENTED X3. SHIFT ASSESSMENT COMPLETED AT THIS TIME. IV PATENT X2. DR SHERWOOD UPDATED ON PT STATUS. NO NEW ORDERS RECEIVED AT THIS TIME. CALL LIGHT IN REACH. WILL CONTINUE TO MONITOR.
--- NOTE | 2018-05-26 20:30 | NUR ---
DRESSING CHANGED TO ABDOMEN. WET TO DRY. PICS OBTAINED FOR CHART OF ABDOMEN, SKIN TEAR TO RFA, AND BLISTER TO LEFT LEG. BRIEF CHANGED WELL. PT CLEANSED AND PERICARE PROVIDED. CALL LIGHT IN REACH. WILL CONTINUE TO MONITOR.
--- NOTE | 2018-05-26 21:01 | NUR ---
hs meds provided to pt. pt tolerated well. will continue to monitor.
--- NOTE | 2018-05-26 22:00 | NUR ---
ICT TEACHER AT BEDSIDE TO DRAW LABS.
--- NOTE | 2018-05-26 22:30 | NUR ---
PT CLEANSED AND BRIEF CAHNGED DUE TO LARGE AMOUNT OF INCONTINENCE. PT TOLERATED WELL.
--- NOTE | 2018-05-26 23:36 | NUR ---
PT MEDICATED WITH BENADRYL PER MAR FOR SLEEP AT THIS TIME. CALL LIGHT IN REACH. WILL CONITNUE TO MONITOR.
[2018-05-27 01:00] VITALS: BP 170/76
--- NOTE | 2018-05-27 01:59 | NUR ---
PT RESTING IN BED WITH EYES CLOSED. RESP ARE EVEN AND UNLABORED. NO DISTRESS NOTED. CALL LIGHT IN REACH. WILL CONTINUE TO MONITOR.
[2018-05-27 03:00] VITALS: BP 171/78
--- NOTE | 2018-05-27 03:00 | NUR ---
BRIEF CHANGED FOR LARGE INCONTINENCE OF URINE AND SMALL BM NOTED. PT CLEANSED AND NEW GOWN APPLIED. CALL LIGHT IN REACH. WILL CONTINUE TO MONITOR
--- NOTE | 2018-05-27 03:45 | NUR ---
RT CALLED DUE TO PT WITH COMPLAINTS OF INCREASED SHORTNESS OF BREATH. NEB TREATMENT TO BE GIVEN WILL REASSESS PT POST NEB TREATMENT
--- NOTE | 2018-05-27 04:07 | NUR ---
PARACHUTE RIGGER AT BEDSIDE TO DRAW AM LABS
--- NOTE | 2018-05-27 04:11 | NUR ---
PT NOW RESTING IN BED WITH EYES CLOSED. RESP ARE EVEN AND UNLABORED. NO DISTRESS NOTED. CALL LIGHT IN REACH. WILL CONTINUE TO MONITOR,
[2018-05-27 04:25] LABS: HEMATOCRIT 36.6 % (39.0-50.0); HEMOGLOBIN 10.8 g/dl (14.0-18.0); IMMATURE GRANULOCYTES 0.7 % (0.0-5.0); MEAN CELL VOLUME 77.7 fL CALC (80.0-100.0); MEAN CORPUSCULAR HGB 22.9 pG CALC (26.0-32.0); MEAN CORPUSCULAR HGB CONC 29.5 g/L CALC (32.0-36.0); NEUT# 9.49 thou/uL (1.82-7.42); RED BLOOD COUNT 4.71 mill/uL (4.70-6.10); RED CELL DISTRI WIDTH 18.2 % (11.5-15.5)
[2018-05-27 04:42] LABS: INTERNATIONAL NORMALIZED RATIO 2.7 RATIO (0.7-1.3); PROTHROMBIN TIME 27.7 SECONDS (9.0-12.5)
[2018-05-27 05:00] VITALS: BP 155/73
--- NOTE | 2018-05-27 05:11 | NUR ---
SORIN FROM LAB CALLED WITH CRITICAL RESULT OF PTT 124.9. PER PROTOCOL HEPARIN PLACED ON HOLD FOR 60 MINUITES. WILL ALSO HAVE LAB REDRAW.
--- NOTE | 2018-05-27 05:45 | NUR ---
LAB INTO ROOM TO REDRAW PTT
--- NOTE | 2018-05-27 06:02 | NUR ---
SORIN FROM LAB CALLED WITH RESULT OF 78. RESTARTED HEPARIN DRIP PER PROTOCOL. WILL CONTINUE TO MONITOR
[2018-05-27 07:00] VITALS: BP 166/78
--- NOTE | 2018-05-27 07:30 | NUR ---
ASSESSMENT IS COMPLETED: IV SITE IS FREE FROM REDNESS OR EDEMA. HR IS REG,PULSES ARE STRONG X4, ABD IS SOFT WITH ACTIVE BS. BREATH SOUNDS ARE CLEAR WITH SOME WHEEZING IN LOWER LOBES. O2 @ 2LITERS WITH NC. PT IS CURRENTLY ON HEPARIN DRIP. CONTINUE TO OSBERVE AND MONITOR. CALL CONKLIN WITHIN REACH.
--- NOTE | 2018-05-27 07:55 | NUR ---
Vancomycin consult Weight: 116.4 Kilograms Vancomycin single level analysis: Current dose being given: 1500 mg Current dosing interval: 12 hrs Current infusion time (hrs): 2 Trough level obtained: 14 mcg/ml Timing of trough - # of hrs before next dose: 0.5 Hrs New rate constant (annie): 0.073 hr-1 Half-life: 9.50 Hours Vd from levels: 81.48 Liters (0.7 L/kg) Vancomycin 1750 mg q 12 hrs. Infuse over 2 hrs Expected Cpeak: 34 mcg/mL Expected Ctrough: 17 mcg/mL
[2018-05-27 09:00] VITALS: BP 136/62
[2018-05-27 09:18] VITALS: BP 136/63
--- NOTE | 2018-05-27 10:00 | NUR ---
PT IS SITTING IN THE CHAIR,. NO DISTRESS NOTED., IV SITE IS FREE FROM REDNESS OR EDEMA.
--- NOTE | 2018-05-27 10:44 | NUR ---
IN TO SPEAK WITH PT RE: FILTER FOR THE BLOOD CLOTS. SPOKE WITH DR. CURTIS AT [facility] , WILL BE ACCEPTING AND WILL DO THE PROCEDURE PT IS ACCEPTING OF THIS. SULEMAN FROM CASE MANAGEMENT IS ASSISTING.
[2018-05-27 11:04] LABS: ANION GAP 14 (6-22 (CALC)); BUN 19 mg/dL (8-23); BUN/CREATININE RATIO 28 (12-20 (CALC)); CARBON DIOXIDE 27 mmol/l (22-30); CHLORIDE 102 mmol/l (95-108); CREATININE 0.7 mg/dL (0.7-1.3); GFR > 60 ML/MIN (>=60 (CALC)); GFR FOR AFR.AMER. > 60 ML/MIN (>=60 (CALC)); POTASSIUM 3.6 mmol/l (3.5-5.1); SODIUM 139 mmol/l (137-146)
--- NOTE | 2018-05-27 11:20 | NUR ---
RECEIVED A CALL FROM BRIGETTE IN LAB RE: TROPONIN IS NOW 0.[address] SHERWOOD
--- NOTE | 2018-05-27 11:33 | NUR ---
SULEMAN, CASE MANAGMENT, @BEDSIDE DISCUSSING TRANSFER TO LWC. PT AGREES TO TRANSFER.
--- NOTE | 2018-05-27 12:03 | NUR ---
[facility] HERE TO TRANSPORT PT TO [facility]. IV SITES ARE INTACT. SPOKE WITH EMILIE AT 1130 RE: TRANSPORT AND WHEN THEY WERE COMING EXPRESSED CONCERN RE: THE BED SITUATION. INFORMED [facility] RE: TAKING THEIR TIME.
--- NOTE | 2018-05-27 12:23 | NUR ---
INFORMED DR. SHERWOOD RE: TROPONIN BEING 0.371
--- NOTE | 2018-05-27 12:39 | NUR ---
SPOKE WITH KAT SERRA AT [facility] GAVE REPORT. INFORMED THAT [facility] IS ON THEIR WAY . CONTINUE TO OBSERVE AND MONITOR. MEDICATIONS SENT WITH PT WELL BELONGINGS.
--- NOTE | 2018-05-27 12:40 | NUR ---
IV SITES REMAINS INTACT WITH MEDICATION AND IV FLUIDS.
== END 2018-05-27 12:40 | DRG 175 ==
LOC: ED 22:41 → ED-I 05-25 01:00 → ED 05-25 02:03 → MS2 05-25 02:04 → ICU 05-25 02:04 → MS2 05-25 03:00 → ICU 05-25 20:46
PROVIDERS: Family Medicine; Nurse Practitioner Family; ADMIT Internal Medicine Nephrology; ATTEND Internal Medicine Nephrology
DX: I26.99 Other pulmonary embolism without acute cor pulmonale (principal); J18.9 Pneumonia, unspecified organism; J44.0 Chronic obstructive pulmonary disease with (acute) lower respiratory infection; J44.1 Chronic obstructive pulmonary disease with (acute) exacerbation; K50.90 Crohn's disease, unspecified, without complications; L03.116 Cellulitis of left lower limb; D62 Acute posthemorrhagic anemia; L97.829 Non-pressure chronic ulcer of other part of left lower leg with unspecified severity; I70.248 Atherosclerosis of native arteries of left leg with ulceration of other part of lower leg; E78.5 Hyperlipidemia, unspecified; I11.0 Hypertensive heart disease with heart failure; I50.9 Heart failure, unspecified; I25.10 Atherosclerotic heart disease of native coronary artery without angina pectoris; E03.9 Hypothyroidism, unspecified; E66.9 Obesity, unspecified; Y95 Nosocomial condition; Z90.49 Acquired absence of other specified parts of digestive tract; Z99.81 Dependence on supplemental oxygen; Z95.5 Presence of coronary angioplasty implant and graft; Z95.1 Presence of aortocoronary bypass graft; Z95.3 Presence of xenogenic heart valve; Z87.891 Personal history of nicotine dependence; Z86.711 Personal history of pulmonary embolism; Z79.01 Long term (current) use of anticoagulants; Z86.718 Personal history of other venous thrombosis and embolism; Z68.34 Body mass index [BMI] 34.0-34.9, adult
CPT/HCPCS: J1644; J3370

== ENCOUNTER 2018-09-21 08:36 | Observation (INO) | payer OTHER, MEDICARE ==
[~2018-09-21] VITALS: Ht 182.9 cm; Wt 118.0 kg
[~2018-09-21 08:36] MED LIST changes: +DEPAKOTE500 MG PO; -DICLOFENAC SODI75 MG PO; +DICLOFENAC50 MG PO; -DIVALPROEX SOD250 MG PO
[2018-09-21 09:16] LABS: HEMATOCRIT 38.4 % (39.0-50.0); HEMOGLOBIN 11.5 g/dl (14.0-18.0); IMMATURE GRANULOCYTES 0.8 % (0.0-5.0); MEAN CORPUSCULAR HGB CONC 29.9 g/L CALC (32.0-36.0); NEUT# 4.72 thou/uL (1.82-7.42); RED BLOOD COUNT 4.99 mill/uL (4.70-6.10); RED CELL DISTRI WIDTH 19.1 % (11.5-15.5)
[2018-09-21 09:30] LABS: ANION GAP 16 (6-22 (CALC)); BUN 42 mg/dL (8-23); BUN/CREATININE RATIO 41 (12-20 (CALC)); CARBON DIOXIDE 24 mmol/l (22-30); CHLORIDE 105 mmol/l (95-108); GFR > 60 ML/MIN (>=60 (CALC)); GFR FOR AFR.AMER. > 60 ML/MIN (>=60 (CALC)); SODIUM 140 mmol/l (137-146)
[2018-09-21 09:31] LABS: POTASSIUM 4.5 mmol/l (3.5-5.1)
[2018-09-21 10:17] LABS: INTERNATIONAL NORMALIZED RATIO 1.7 RATIO (0.7-1.3); PROTHROMBIN TIME 18.2 SECONDS (9.0-12.5)
[2018-09-21] MEDS ORDERED: WARFARIN5 MG PO (10:40)
[2018-09-21] MEDS ORDERED: WARFARIN7.5 MG PO (10:42)
[2018-09-21] MEDS ORDERED: METHIMAZOLE5 MG PO (10:44)
[2018-09-21] MEDS ORDERED: APRISO0.375 GM PO (10:47)
[2018-09-21] MEDS ORDERED: NITROGLYCERIN0.4 MG SL (10:55)
[2018-09-21 11:39] VITALS: BP 157/53
[2018-09-21 13:11] LABS: URINE BILIRUBIN - DIPSTICK NEGATIVE (NEGATIVE); URINE BLOOD DIPSTICK NEGATIVE (NEGATIVE); URINE COLOR YELLOW; URINE GLUCOSE - DIPSTICK NEGATIVE (NEGATIVE); URINE KETONE TRACE mg/dL (NEGATIVE); URINE LEUK ESTERASE NEGATIVE (NEGATIVE); URINE NITRITE - DIPSTICK NEGATIVE (Negative); URINE PROTEIN - DIPSTICK TRACE mg/dL (NEG-TRACE); URINE SPECIFIC GRAVITY >=1.030; URINE UROBILINOGEN - DIPSTICK 0.2 E.U./dL (0.2)
[2018-09-21 13:28] VITALS: BP 159/64
[2018-09-21 13:33] VITALS: BP 155/65
[2018-09-21 13:38] VITALS: BP 153/73
[2018-09-21 18:33] VITALS: BP 160/65
[2018-09-21 19:41] VITALS: BP 163/77
[2018-09-22 00:15] VITALS: BP 151/63
[2018-09-22 05:39] VITALS: BP 128/75
[2018-09-22 06:00] LABS: HEMOGLOBIN 12.3 g/dl (14.0-18.0); IMMATURE GRANULOCYTES 0.5 % (0.0-5.0); MEAN CELL VOLUME 79.7 fL CALC (80.0-100.0); MEAN CORPUSCULAR HGB 23.3 pG CALC (26.0-32.0); MEAN CORPUSCULAR HGB CONC 29.3 g/L CALC (32.0-36.0); NEUT# 5.83 thou/uL (1.82-7.42); RED BLOOD COUNT 5.27 mill/uL (4.70-6.10); RED CELL DISTRI WIDTH 19.8 % (11.5-15.5)
[2018-09-22 06:08] LABS: INTERNATIONAL NORMALIZED RATIO 1.8 RATIO (0.7-1.3); PROTHROMBIN TIME 19.2 SECONDS (9.0-12.5)
[2018-09-22 06:18] LABS: ANION GAP 15 (6-22 (CALC)); BUN 37 mg/dL (8-23); BUN/CREATININE RATIO 39 (12-20 (CALC)); CARBON DIOXIDE 23 mmol/l (22-30); CHLORIDE 107 mmol/l (95-108); CREATININE 0.9 mg/dL (0.7-1.3); GFR > 60 ML/MIN (>=60 (CALC)); GFR FOR AFR.AMER. > 60 ML/MIN (>=60 (CALC)); MAGNESIUM 2.1 mg/dL (1.6-2.3); POTASSIUM 4.9 mmol/l (3.5-5.1); SODIUM 141 mmol/l (137-146)
[2018-09-22 08:43] VITALS: BP 158/73
[2018-09-22 11:30] VITALS: BP 107/55
[2018-09-22 15:25] VITALS: BP 109/49
[2018-09-22 19:36] VITALS: BP 106/41
[2018-09-23 01:18] VITALS: BP 131/71
[2018-09-23 04:00] VITALS: BP 115/64
[2018-09-23 05:17] LABS: HEMATOCRIT 40.2 % (39.0-50.0); HEMOGLOBIN 12.1 g/dl (14.0-18.0); IMMATURE GRANULOCYTES 0.7 % (0.0-5.0); MEAN CELL VOLUME 77.5 fL CALC (80.0-100.0); MEAN CORPUSCULAR HGB 23.3 pG CALC (26.0-32.0); MEAN CORPUSCULAR HGB CONC 30.1 g/L CALC (32.0-36.0); NEUT# 4.77 thou/uL (1.82-7.42); RED BLOOD COUNT 5.19 mill/uL (4.70-6.10); RED CELL DISTRI WIDTH 19.5 % (11.5-15.5)
[2018-09-23 05:19] LABS: INTERNATIONAL NORMALIZED RATIO 1.5 RATIO (0.7-1.3); PROTHROMBIN TIME 15.2 SECONDS (9.0-12.5)
[2018-09-23 05:29] LABS: BUN 47 mg/dL (8-23); BUN/CREATININE RATIO 36 (12-20 (CALC)); CHLORIDE 103 mmol/l (95-108); CREATININE 1.3 mg/dL (0.7-1.3); GFR 54 ML/MIN (>=60 (CALC)); GFR FOR AFR.AMER. > 60 ML/MIN (>=60 (CALC)); MAGNESIUM 2.2 mg/dL (1.6-2.3); POTASSIUM 4.5 mmol/l (3.5-5.1); SODIUM 141 mmol/l (137-146)
[2018-09-23 05:40] LABS: ANION GAP 15 (6-22 (CALC)); CARBON DIOXIDE 28 mmol/l (22-30)
[2018-09-23 08:30] VITALS: BP 117/40
[2018-09-23 12:04] VITALS: BP 128/60
== END 2018-09-23 18:20 | disposition home or self-care (01) | DRG 312 ==
LOC: ED 08:36 → ED-I 10:13 → ED 10:25 → MS2 10:26
PROVIDERS: Family Medicine; Nurse Practitioner Family; ADMIT Internal Medicine; ATTEND Internal Medicine
DX: R55 Syncope and collapse (principal); T82.858A Stenosis of other vascular prosthetic devices, implants and grafts, initial encounter; G47.33 Obstructive sleep apnea (adult) (pediatric); R06.89 Other abnormalities of breathing; I11.0 Hypertensive heart disease with heart failure; I50.9 Heart failure, unspecified; J44.9 Chronic obstructive pulmonary disease, unspecified; I73.9 Peripheral vascular disease, unspecified; I25.10 Atherosclerotic heart disease of native coronary artery without angina pectoris; E03.9 Hypothyroidism, unspecified; F32.9 Major depressive disorder, single episode, unspecified; N40.0 Benign prostatic hyperplasia without lower urinary tract symptoms; E78.5 Hyperlipidemia, unspecified; E66.9 Obesity, unspecified; Y83.1 Surgical operation with implant of artificial internal device as the cause of abnormal reaction of the patient, or of later complication, without mention of misadventure at the time of the procedure; Z68.35 Body mass index [BMI] 35.0-35.9, adult; Z79.01 Long term (current) use of anticoagulants; Z86.718 Personal history of other venous thrombosis and embolism; Z86.711 Personal history of pulmonary embolism; Z91.19 Patient's noncompliance with other medical treatment and regimen; Z95.1 Presence of aortocoronary bypass graft; Z95.5 Presence of coronary angioplasty implant and graft; Z95.3 Presence of xenogenic heart valve; Z87.891 Personal history of nicotine dependence

== ENCOUNTER 2019-04-07 19:11 | Emergency (ER) | payer OTHER, MEDICARE ==
[~2019-04-07] VITALS: Ht 182.9 cm; Wt 111.3 kg
[~2019-04-07 19:11] MED LIST changes: +APRISO0.375 GM PO; +NITROGLYCERIN0.4 MG SL; +WARFARIN5 MG PO; +WARFARIN7.5 MG PO
[2019-04-07] MEDS ORDERED: STRIVERDI2.5 MCG/AC IN (19:53)
[2019-04-07] MEDS ORDERED: PEPCID AC20 MG PO (19:57)
[2019-04-07] MEDS ORDERED: CARB/LEVO1 TA4 PO (19:58)
[2019-04-07 20:01] LABS: HEMATOCRIT 44.5 % (39.0-50.0); HEMOGLOBIN 13.9 g/dl (14.0-18.0); IMMATURE GRANULOCYTES 0.8 % (0.0-5.0); MEAN CELL VOLUME 80.6 fL CALC (80.0-100.0); MEAN CORPUSCULAR HGB 25.2 pG CALC (26.0-32.0); MEAN CORPUSCULAR HGB CONC 31.2 g/L CALC (32.0-36.0); NEUT# 2.79 thou/uL (1.82-7.42); RED BLOOD COUNT 5.52 mill/uL (4.70-6.10)
[2019-04-07 20:20] LABS: ALKALINE PHOSPHATASE 106 u/l (38-126); ANION GAP 16 (6-22 (CALC)); BUN 21 mg/dL (8-23); BUN/CREATININE RATIO 22 (12-20 (CALC)); CARBON DIOXIDE 27 mmol/l (22-30); CHLORIDE 99 mmol/l (95-108); CREATININE 0.9 mg/dL (0.7-1.3); GFR > 60 ML/MIN (>=60 (CALC)); GFR FOR AFR.AMER. > 60 ML/MIN (>=60 (CALC)); POTASSIUM 4.3 mmol/l (3.5-5.1); SGOT/AST 27 u/l (19-48); SODIUM 138 mmol/l (137-146)
[2019-04-07 20:21] LABS: ALBUMIN 3.9 g/dL (3.2-5.0); BILIRUBIN, TOTAL 0.9 mg/dL (0.0-1.4); TOTAL PROTEIN 7.6 g/dL (6.3-8.2)
[2019-04-07 21:04] LABS: URINE BILIRUBIN - DIPSTICK NEGATIVE (NEGATIVE); URINE BLOOD DIPSTICK TRACE-INTACT (NEGATIVE); URINE COLOR YELLOW; URINE GLUCOSE - DIPSTICK NEGATIVE (NEGATIVE); URINE KETONE TRACE mg/dL (NEGATIVE); URINE LEUK ESTERASE NEGATIVE (NEGATIVE); URINE NITRITE - DIPSTICK NEGATIVE (Negative); URINE PH 5.5 (4.5-8.0); URINE PROTEIN - DIPSTICK 100 mg/dL (NEG-TRACE); URINE SPECIFIC GRAVITY >=1.030
[2019-04-07 21:06] LABS: URINE RBC 0-2 RBC/hpf (0-5); URINE WBC 0-2 WBC/hpf (0-5)
[2019-04-07] MEDS ORDERED: TAM75CAP PO (22:00)
[2019-04-07] MEDS ORDERED: ROBITUSSIN AC10 ML PO (22:00)
[2019-04-07 22:02] VITALS: BP 144/66
== END 2019-04-07 22:15 | disposition home or self-care (01) | DRG 153 ==
LOC: ED 19:11
PROVIDERS: Emergency Medicine
DX: J11.1 Influenza due to unidentified influenza virus with other respiratory manifestations (principal)
CPT/HCPCS: G9019

== ENCOUNTER 2019-06-18 12:34 | Observation (INO) | payer OTHER, MEDICARE ==
[~2019-06-18] VITALS: Ht 182.9 cm; Wt 113.2 kg
[~2019-06-18 12:34] MED LIST changes: -ALLERGY RE50 MCG/ACT; +ALLERGY RE50 MCG/ACT NAB; +CARB/LEVO1 TA4 PO; +PEPCID AC20 MG PO; +TAM75CAP PO
--- NOTE | 2019-06-18 12:34 | NUR ---
PT TO ROOM VIA EMS
[2019-06-18] MEDS ORDERED: ISOSORB DIN30 MG PO (12:56)
[2019-06-18] MEDS ORDERED: ELIQUIS5 MG PO (12:57)
[2019-06-18] MEDS ORDERED: VITAMIN D31000 UNI1 PO (12:58)
[2019-06-18] MEDS ORDERED: PROSCAR5 MG PO (12:59)
[2019-06-18] MEDS ORDERED: GABAPENTIN300 M2 PO (13:00)
[2019-06-18 13:03] LABS: HEMOGLOBIN 13.9 g/dl (14.0-18.0); IMMATURE GRANULOCYTES 0.6 % (0.0-5.0); MEAN CELL VOLUME 83.8 fL CALC (80.0-100.0); MEAN CORPUSCULAR HGB 25.9 pG CALC (26.0-32.0); MEAN CORPUSCULAR HGB CONC 30.9 g/L CALC (32.0-36.0); NEUT# 11.22 thou/uL (1.82-7.42); RED BLOOD COUNT 5.37 mill/uL (4.70-6.10); RED CELL DISTRI WIDTH 17.6 % (11.5-15.5)
[2019-06-18 13:12] LABS: ALBUMIN 3.7 g/dL (3.2-5.0); ALKALINE PHOSPHATASE 98 u/l (38-126); ANION GAP 12 (6-22 (CALC)); BUN 19 mg/dL (8-23); BUN/CREATININE RATIO 24 (12-20 (CALC)); CARBON DIOXIDE 28 mmol/l (22-30); CHLORIDE 105 mmol/l (95-108); CREATININE 0.8 mg/dL (0.7-1.3); GFR > 60 ML/MIN (>=60 (CALC)); GFR FOR AFR.AMER. > 60 ML/MIN (>=60 (CALC)); LIPASE 28 u/l (23-300); POTASSIUM 4.3 mmol/l (3.5-5.1); SGOT/AST 19 u/l (19-48); SODIUM 140 mmol/l (137-146)
--- NOTE | 2019-06-18 13:20 | NUR ---
PT SITTING UP ON STRETCHER; NO S/S OF DISTRESS NOTED; PT ADVISED OF POC AND CONTINUED WAIT TIME FOR RESULTS; PT DENIES ANY PAIN OR DISCOMFORT AT THIS TIME; 2L O2 IN PLACE; VSS; CALL LIGHT WITHIN REACH; WILL CONTINUE TO MONITOR
[2019-06-18 13:25] LABS: BILIRUBIN, TOTAL 1.7 mg/dL (0.0-1.4)
[2019-06-18 13:28] LABS: ACT PARTIAL THROMBO TIME 33.6 SECONDS (20.0-32.5); INTERNATIONAL NORMALIZED RATIO 1.1 RATIO (0.7-1.3); PROTHROMBIN TIME 11.6 SECONDS (9.0-12.5)
--- NOTE | 2019-06-18 14:20 | NUR ---
PT SITTING UP ON STRETCHER; NO S/S OF DISTRESS NOTED; IV ANTIBIOTICS INFUSING; PT DENIES ANY NEEDS AT THIS TIME; CALL LIGHT WITHIN REACH; WILL CONTINUE TO MONITOR
--- NOTE | 2019-06-18 14:50 | NUR ---
I CALLED [facility] WOUND VAC AND SPOKE WITH NASRIN ABOUT THE WOUND VAC PLACED ON 06/16 AND DISCHARGED ON 06/18 @1440. THE REFERANCE NUMBER FOR PLACEMENT IS [id number] AND THE REFERANCE NUMBER FOR HULL INSPECTOR IS [id number]. SHE VERIFIED THAT WOUND VAC [id number] WOULD BE PICKED UP AND A REPLACEMENT WOULD BE DELIVERED.
--- NOTE | 2019-06-18 15:20 | NUR ---
PT RESTING ON STRETCHER; NO S/S OF DISTRESS NOTED; PT ADVISED OF PENDING ADMISSION AND HALEY TIME; VERBALIZES UNDERSTANDING; WILL CONTINUE TO MONITOR
--- NOTE | 2019-06-18 16:00 | NUR ---
Admission Note Report Given to: PONCE LARRY Transported by: Wheelchair X Stretcher Transported with: X Nurse Transporter X Patent IV X O2 X Office Employee Location: ICU X MS2
[2019-06-18 16:05] VITALS: BP 141/63
--- NOTE | 2019-06-18 16:38 | NUR ---
REPORT RECEIVED FROM EUGENIO RAMÍREZ ARRIVED ON UNIT @ 1602 TRANSPORTED VIA STRETCHER BY ED STAFF. ALERT AND ORIENTED X 3, O2 @ 2L VIA NC IN PLACE, TELE MONITOR IN PLACE, ORIENTED TO ROOM AND CALL CONKLIN, SETTTLED IN BED, WILL CONTINUE TO MONITOR.
[2019-06-18 18:01] LABS: URINE BILIRUBIN - DIPSTICK NEGATIVE (NEGATIVE); URINE BLOOD DIPSTICK NEGATIVE (NEGATIVE); URINE COLOR YELLOW; URINE GLUCOSE - DIPSTICK NEGATIVE (NEGATIVE); URINE KETONE NEGATIVE (NEGATIVE); URINE LEUK ESTERASE NEGATIVE (NEGATIVE); URINE NITRITE - DIPSTICK NEGATIVE (Negative); URINE PROTEIN - DIPSTICK TRACE mg/dL (NEG-TRACE); URINE SPECIFIC GRAVITY >=1.030
[2019-06-18 19:01] VITALS: BP 124/54
--- NOTE | 2019-06-18 20:46 | NUR ---
PT. SITTING UP IN BED WITH NO DISTRESS NOTED; O2 INFUSING PER NC PER ORDER. ASSESSMENT COMPLETED. IV SITE PATENT AND SL. SCHED MEDS GIVEN. PT. REPORTS THAT SINEMET IS NOT CORRECT DOSE AND PT. NORMALLY TAKES 50MG NOT 25MG, WILL CALL MD SPORTS PHYSIOTHERAPIST TO CORRECT. 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 DRESSING IS CDI TO LOWER MIDDLE ABDOMEN. ENCOURAGED TO CALL FOR ANY NEEDS. CALL LIGHT IS IN REACH.
--- NOTE | 2019-06-18 21:58 | NUR ---
PT. C/O BILATERAL FEET PAIN AND MEDICATED WITH ORDERED PRN ULTRAM ALONG WITH OTHER DOSE OF 25 MG SINEMET PER ORDER PT. TAKES AT HOME. WILL REASSESS.
--- NOTE | 2019-06-18 23:35 | NUR ---
INCENTIVE SPIROMETER PROVIDED AND EDUCATION GIVEN. PT. ABLE TO PULL 2000; GOAL SET AT 2500. DENIES NEEDS. CALL LIGHT IS IN REACH.
--- NOTE | 2019-06-19 00:57 | NUR ---
ER NURSE, PONCE HERNANDEZ, CALLED AND NOTIFIED THIS [employer] MAKER THAT PT'S HR DIPPED INTO THE MID 40'S. CHECKED PT. AND PT. IS SLEEPING, AWAKENED AND PT. IS ASYMPTOMATIC. PT. REPORTS HE NORMALLY HAS A LOW HR IN THE 50'S, BUT HAS ON OCCASION DROPPED INTO THE 40'S. WILL CONTINUE TO MONITOR. HR NOW 50.
[2019-06-19 01:47] VITALS: BP 132/53
--- NOTE | 2019-06-19 02:54 | NUR ---
RESTING IN BED ON RIGHT SIDE WITH EYES CLOSED. RESP. EVEN AND UNLABORED. CALL LIGHT IS IN REACH.
[2019-06-19 04:07] VITALS: BP 131/62
--- NOTE | 2019-06-19 04:13 | NUR ---
PT. SITTING UP IN BED ON HIS PHONE WITH NO DISTRESS NOTED; DENIES NEEDS/PAIN. CALL LIGHT IS IN REACH.
--- NOTE | 2019-06-19 05:31 | NUR ---
PT. SITTING UP IN BED WITH NO DISTRESS NOTED; PRUNE JUICE PROVIDED TO ASSIST WITH BM AND FRESH WATER PROVIDED. DENIES NEEDS. CALL LIGHT IS IN REACH.
[2019-06-19 05:45] LABS: HEMATOCRIT 43.5 % (39.0-50.0); HEMOGLOBIN 13.5 g/dl (14.0-18.0); MEAN CELL VOLUME 84.3 fL CALC (80.0-100.0); MEAN CORPUSCULAR HGB 26.2 pG CALC (26.0-32.0); RED BLOOD COUNT 5.16 mill/uL (4.70-6.10); RED CELL DISTRI WIDTH 17.1 % (11.5-15.5)
[2019-06-19 06:18] LABS: BUN 24 mg/dL (8-23); BUN/CREATININE RATIO 36 (12-20 (CALC)); CHLORIDE 104 mmol/l (95-108); CREATININE 0.7 mg/dL (0.7-1.3); GFR > 60 ML/MIN (>=60 (CALC)); GFR FOR AFR.AMER. > 60 ML/MIN (>=60 (CALC)); MAGNESIUM 2.2 mg/dL (1.6-2.3); POTASSIUM 4.8 mmol/l (3.5-5.1); SODIUM 137 mmol/l (137-146)
[2019-06-19 06:22] LABS: ANION GAP 16 (6-22 (CALC)); CARBON DIOXIDE 22 mmol/l (22-30)
--- NOTE | 2019-06-19 07:18 | NUR ---
NOTIFIED DR. COUCH OF PT'S HR DROPPING INTO THE 40'S LOW 42(SINUS). WELL PT. REPORTING BASELINE IS IN THE 50'S AND HAS IN THE PAST DROPPED IN THE 40'S PER PT. NO NEW ORDERS RECEIVED.
[2019-06-19 08:20] VITALS: BP 164/73
--- NOTE | 2019-06-19 08:20 | NUR ---
PT SITTING IN BED. A&O X3. NO DISTRESS NOTED. O2 VIA NC AT 2L IN PLACE. ABD DRESSING IN PLACE. CDI WITH NO SHADOWING PRESENT. PER ER PT HAS BEEN READING IN THE HIGH 40'S , DR HARVEY NOTIFIED THIS MORNING. PER PT THIS HAS HAPPENED BEFORE AND TENDS TO BE BRADYCARDIC. DISCUSSED POC. ASSESSMENT COMPELTED. CALL LIGHT IN REACH. CONTINUE TO MONITOR.
--- NOTE | 2019-06-19 09:10 | NUR ---
PT. STATES HE DOES NOT NEED A BREATHING TX AT THIS TIME.
--- NOTE | 2019-06-19 10:12 | NUR ---
DR HARVEY AT BEDSIDE DISCUSSING POC
--- NOTE | 2019-06-19 12:00 | NUR ---
PT SITTING IN BED EATING LUNCH. NO OTHER NEEDS AT THIS TIME.
[2019-06-19 12:15] VITALS: BP 128/56
--- NOTE | 2019-06-19 13:40 | NUR ---
PER PT SON HAS BROUGHT IN HIS MEDICATION THAT HE PLACES ON HIS ABD WOUND AND CREAM HE APPLIES TO HIS LEGS. MEDICATIONS TO BE SENT TO PHARMACY TO BE PROFILED.
[2019-06-19 15:50] VITALS: BP 145/63
[2019-06-19 19:15] VITALS: BP 115/58
--- NOTE | 2019-06-19 19:29 | NUR ---
REPORT FROM JADEN KENNEDY. PT NOTED SITTING UP IN BED, ALERT AND ORIENTED. NO APPARENT DISTRESS NOTED. PT DENIES ANY PAIN OR DISCOMFORT. PT REMAINS ON CONTACT PRECATIONS FOR HX OF MRSA. IV SITE APPEARS HEALTHY. FUR MIXER OPERATOR IN PLACE. DRESSING NOTED TO JUSTUS ORTEGA. O2 @ 2L/M VIA NC. DISCUSSED POC. PT VERBALIZED UNDERSTANDING. CALL LIGHT WITHIN REACH. WILL CONTINUE TO MONITOR.
--- NOTE | 2019-06-19 23:44 | NUR ---
PT RESTING IN BED WITH EYES CLOSED. NO APPARENT DISTRESS NOTED. CALL LIGHT WITHIN REACH. WILL CONTINUE TO MONITOR.
[2019-06-20 00:11] VITALS: BP 129/54
--- NOTE | 2019-06-20 03:15 | NUR ---
PT RESTING IN BED. RESPIRATIONS EVEN AND UNLABORED. CALL LIGHT WITHIN REACH. WILL CONTINUE TO MONITOR.
[2019-06-20 04:03] VITALS: BP 148/64
--- NOTE | 2019-06-20 07:00 | NUR ---
SHIFT CHANGE REPORT, PT SLEEPING BUT AROUSES TO VERBAL STIMULI, NO C/O NEW PAIN AT THIS TIME BUT REPORTS HIS LOWER EXT CONTINUES TO HURT PERIODICALLY, ALL NEEDS ADDRESSED, CALL CONKLIN IN REACH.
[2019-06-20 08:11] VITALS: BP 162/58
[2019-06-20 11:20] VITALS: BP 114/49
[2019-06-20] MEDS ORDERED: DOXYCYCL HYC100 MG PO (11:59)
[2019-06-20] MEDS ORDERED: PREDNISONE10 MG PO (11:59)
--- NOTE | 2019-06-20 12:00 | NUR ---
SITTING UP ON SIDE OF MED HAVING MEAL, MEDICAL TEAM ROUNDED AND DISCUSSED D/C PLANS.
--- NOTE | 2019-06-20 14:28 | NUR ---
Discharge instructions given. Patient verbalizes understanding of same. Discharged in stable condition via Wheelchair to Home with family. All belongings sent with pt.
== END 2019-06-20 14:15 | disposition home or self-care (01) | DRG 190 ==
LOC: ED 12:34 → ED-I 14:15 → ED 14:38 → MS2 14:39
PROVIDERS: ADMIT Internal Medicine; ATTEND Internal Medicine
DX: J44.1 Chronic obstructive pulmonary disease with (acute) exacerbation (principal); J96.21 Acute and chronic respiratory failure with hypoxia; I11.0 Hypertensive heart disease with heart failure; I50.9 Heart failure, unspecified; I25.10 Atherosclerotic heart disease of native coronary artery without angina pectoris; I73.9 Peripheral vascular disease, unspecified; N40.0 Benign prostatic hyperplasia without lower urinary tract symptoms; G62.9 Polyneuropathy, unspecified; Z95.1 Presence of aortocoronary bypass graft; Z95.5 Presence of coronary angioplasty implant and graft; Z86.711 Personal history of pulmonary embolism; Z79.01 Long term (current) use of anticoagulants; Z95.3 Presence of xenogenic heart valve; Z87.891 Personal history of nicotine dependence
CPT/HCPCS: G0378

== ENCOUNTER 2019-07-02 | Emergency (ER) | payer OTHER, MEDICARE ==
[~2019-07-02] MED LIST changes: +DOXYCYCL HYC100 MG PO; +ELIQUIS5 MG PO; +GABAPENTIN300 M2 PO; +ISOSORB DIN30 MG PO; +VITAMIN D31000 UNI1 PO
[2019-07-02 20:25] LABS: HEMATOCRIT 47.4 % (39.0-50.0); MEAN CELL VOLUME 83.5 fL CALC (80.0-100.0); MEAN CORPUSCULAR HGB 26.4 pG CALC (26.0-32.0); MEAN CORPUSCULAR HGB CONC 31.6 g/L CALC (32.0-36.0); NEUT# 9.34 thou/uL (1.82-7.42); RED BLOOD COUNT 5.68 mill/uL (4.70-6.10); RED CELL DISTRI WIDTH 18.1 % (11.5-15.5)
[2019-07-02 20:26] LABS: URINE BILIRUBIN - DIPSTICK NEGATIVE (NEGATIVE); URINE BLOOD DIPSTICK TRACE-INTACT (NEGATIVE); URINE COLOR YELLOW; URINE GLUCOSE - DIPSTICK NEGATIVE (NEGATIVE); URINE KETONE NEGATIVE (NEGATIVE); URINE LEUK ESTERASE NEGATIVE (NEGATIVE); URINE NITRITE - DIPSTICK NEGATIVE (Negative); URINE PROTEIN - DIPSTICK NEGATIVE (NEG-TRACE); URINE SPECIFIC GRAVITY 1.025; URINE UROBILINOGEN - DIPSTICK 0.2 E.U./dL (0.2)
[2019-07-02] MEDS ORDERED: STRIVERDI2.5 MCG/AC NAB (20:32)
[2019-07-02] MEDS ORDERED: XALATAN0.005 % OU (20:40)
[2019-07-02 20:52] LABS: ALBUMIN 4.2 g/dL (3.2-5.0); ALKALINE PHOSPHATASE 85 u/l (38-126); AMYLASE 93 u/l (30-110); ANION GAP 14 (6-22 (CALC)); BUN 27 mg/dL (8-23); BUN/CREATININE RATIO 39 (12-20 (CALC)); CARBON DIOXIDE 25 mmol/l (22-30); CHLORIDE 101 mmol/l (95-108); CREATININE 0.7 mg/dL (0.7-1.3); GFR > 60 ML/MIN (>=60 (CALC)); GFR FOR AFR.AMER. > 60 ML/MIN (>=60 (CALC)); LIPASE 134 u/l (23-300); POTASSIUM 4.5 mmol/l (3.5-5.1); SGOT/AST 16 u/l (19-48); SODIUM 136 mmol/l (137-146); TOTAL PROTEIN 7.1 g/dL (6.3-8.2)
[2019-07-02 20:55] LABS: ACT PARTIAL THROMBO TIME 25.4 SECONDS (20.0-32.5); PROTHROMBIN TIME 10.6 SECONDS (9.0-12.5)
[2019-07-02 21:05] LABS: BILIRUBIN, TOTAL 0.8 mg/dL (0.0-1.4)
== END 2019-07-02 22:42 | disposition home or self-care (01) | DRG 813 ==
PROVIDERS: Family Medicine
DX: D69.6 Thrombocytopenia, unspecified (principal); I10 Essential (primary) hypertension; J44.9 Chronic obstructive pulmonary disease, unspecified
CPT/HCPCS: Q9967

== ENCOUNTER 2019-12-05 11:39 | Observation (INO) | payer OTHER, MEDICARE ==
[~2019-12-05] VITALS: Ht 182.9 cm; Wt 117.7 kg
[~2019-12-05 11:39] MED LIST changes: +STRIVERDI2.5 MCG/AC NAB; +XALATAN0.005 % OU
[2019-12-05 12:43] LABS: HEMATOCRIT 44.6 % (39.0-50.0); HEMOGLOBIN 13.8 g/dl (14.0-18.0); IMMATURE GRANULOCYTES 0.8 % (0.0-5.0); MEAN CELL VOLUME 86.9 fL CALC (80.0-100.0); MEAN CORPUSCULAR HGB 26.9 pG CALC (26.0-32.0); MEAN CORPUSCULAR HGB CONC 30.9 g/dL CAL (32.0-36.0); NEUT# 3.26 thou/uL (1.82-7.42); RED BLOOD COUNT 5.13 mill/uL (4.70-6.10); RED CELL DISTRI WIDTH 15.1 % (11.5-15.5)
[2019-12-05 13:00] LABS: ALBUMIN 3.7 g/dL (3.2-5.0); ALKALINE PHOSPHATASE 142 u/l (38-126); ANION GAP 9 (6-22 (CALC)); BILIRUBIN, TOTAL 0.8 mg/dL (0.0-1.4); BUN 19 mg/dL (8-23); BUN/CREATININE RATIO 26 (12-20 (CALC)); CARBON DIOXIDE 28 mmol/l (22-30); CHLORIDE 103 mmol/l (95-108); CREATININE 0.8 mg/dL (0.7-1.3); GFR > 60 ML/MIN (>=60 (CALC)); GFR FOR AFR.AMER. > 60 ML/MIN (>=60 (CALC)); LIPASE 45 u/l (23-300); POTASSIUM 4.1 mmol/l (3.5-5.1); SGOT/AST 21 u/l (19-48); SODIUM 136 mmol/l (137-146); TOTAL PROTEIN 6.5 g/dL (6.3-8.2)
[2019-12-05] MEDS ORDERED: ISOSORB MONO30 MG PO (13:09)
[2019-12-05] MEDS ORDERED: METHIMAZOLE5 MG PO (13:10)
[2019-12-05] MEDS ORDERED: PRILOSEC20 MG/CAP PO (13:14)
[2019-12-05] MEDS ORDERED: ASPIRIN ADULT L81 M2 PO (13:15)
[2019-12-05] MEDS ORDERED: LYRICA50 MG PO (13:17)
[2019-12-05] MEDS ORDERED: COMBIVENT RESPIMAT IN (13:19)
[2019-12-05] MEDS ORDERED: GUAIFENESIN400 MG PO (13:19)
[2019-12-05 16:15] VITALS: BP 151/75
[2019-12-05 18:30] VITALS: BP 138/70
[2019-12-05 23:23] VITALS: BP 128/63
[2019-12-06 03:35] VITALS: BP 125/54
[2019-12-06 05:56] LABS: HEMATOCRIT 45.1 % (39.0-50.0); HEMOGLOBIN 13.7 g/dl (14.0-18.0); IMMATURE GRANULOCYTES 0.6 % (0.0-5.0); MEAN CELL VOLUME 87.6 fL CALC (80.0-100.0); MEAN CORPUSCULAR HGB 26.6 pG CALC (26.0-32.0); MEAN CORPUSCULAR HGB CONC 30.4 g/dL CAL (32.0-36.0); NEUT# 3.36 thou/uL (1.82-7.42); RED BLOOD COUNT 5.15 mill/uL (4.70-6.10); RED CELL DISTRI WIDTH 15.2 % (11.5-15.5)
[2019-12-06 06:18] LABS: ANION GAP 8 (6-22 (CALC)); BUN 18 mg/dL (8-23); BUN/CREATININE RATIO 25 (12-20 (CALC)); CARBON DIOXIDE 30 mmol/l (22-30); CHLORIDE 101 mmol/l (95-108); CREATININE 0.7 mg/dL (0.7-1.3); GFR > 60 ML/MIN (>=60 (CALC)); GFR FOR AFR.AMER. > 60 ML/MIN (>=60 (CALC)); POTASSIUM 4.3 mmol/l (3.5-5.1); SODIUM 135 mmol/l (137-146)
[2019-12-06 08:34] VITALS: BP 128/47
[2019-12-06 14:06] VITALS: BP 125/68
== END 2019-12-06 14:40 | disposition home or self-care (01) | DRG 605 ==
LOC: ED 11:39 → ED-I 13:43 → ED 13:54 → ED-I 13:55 → MS2 14:41
PROVIDERS: Family Medicine; ADMIT Internal Medicine; ATTEND Internal Medicine
DX: S00.03XA Contusion of scalp, initial encounter (principal); R07.81 Pleurodynia; I11.0 Hypertensive heart disease with heart failure; I50.9 Heart failure, unspecified; J44.9 Chronic obstructive pulmonary disease, unspecified; I25.10 Atherosclerotic heart disease of native coronary artery without angina pectoris; I73.9 Peripheral vascular disease, unspecified; E05.90 Thyrotoxicosis, unspecified without thyrotoxic crisis or storm; W01.0XXA Fall on same level from slipping, tripping and stumbling without subsequent striking against object, initial encounter; Z86.711 Personal history of pulmonary embolism; Z95.3 Presence of xenogenic heart valve; Z87.891 Personal history of nicotine dependence; Z95.5 Presence of coronary angioplasty implant and graft; Z95.1 Presence of aortocoronary bypass graft; Z79.01 Long term (current) use of anticoagulants; Z86.73 Personal history of transient ischemic attack (TIA), and cerebral infarction without residual deficits; Z11.59 Encounter for screening for other viral diseases
CPT/HCPCS: G0378

== ENCOUNTER 2020-03-13 10:24 | Emergency (ER) | payer OTHER, MEDICARE ==
[~2020-03-13] VITALS: Ht 182.9 cm; Wt 125.0 kg
[~2020-03-13 10:24] MED LIST changes: +ASPIRIN ADULT L81 M2 PO; +COMBIVENT RESPIMAT IN; +GUAIFENESIN400 MG PO; +ISOSORB MONO30 MG PO; +LYRICA50 MG PO; +PRILOSEC20 MG/CAP PO
[2020-03-13 11:54] LABS: HEMATOCRIT 42.8 % (39.0-50.0); HEMOGLOBIN 13.6 g/dl (14.0-18.0); IMMATURE GRANULOCYTES 0.7 % (0.0-5.0); MEAN CELL VOLUME 87.2 fL CALC (80.0-100.0); MEAN CORPUSCULAR HGB 27.7 pG CALC (26.0-32.0); MEAN CORPUSCULAR HGB CONC 31.8 g/dL CAL (32.0-36.0); NEUT# 4.2 thou/uL (1.82-7.42); RED BLOOD COUNT 4.91 mill/uL (4.70-6.10); RED CELL DISTRI WIDTH 14.7 % (11.5-15.5)
[2020-03-13 11:56] LABS: URINE BLOOD DIPSTICK LARGE (NEGATIVE); URINE COLOR RED; URINE GLUCOSE - DIPSTICK 100 mg/dL (NEGATIVE); URINE KETONE TRACE mg/dL (NEGATIVE); URINE PH 6.5 (4.5-8.0); URINE PROTEIN - DIPSTICK >=300 mg/dL (NEG-TRACE); URINE SPECIFIC GRAVITY 1.025
[2020-03-13 12:00] LABS: URINE BILIRUBIN - DIPSTICK MODERATE (NEGATIVE); URINE LEUK ESTERASE MODERATE (NEGATIVE); URINE NITRITE - DIPSTICK POSITIVE (Negative)
[2020-03-13 12:01] LABS: URINE RBC TNTC RBC/hpf (0-5)
[2020-03-13 12:19] LABS: ALBUMIN 3.8 g/dL (3.2-5.0); ALKALINE PHOSPHATASE 122 u/l (38-126); ANION GAP 11 (6-22 (CALC)); BILIRUBIN, TOTAL 1.2 mg/dL (0.0-1.4); BUN 18 mg/dL (8-23); BUN/CREATININE RATIO 23 (12-20 (CALC)); CARBON DIOXIDE 27 mmol/l (22-30); CHLORIDE 105 mmol/l (95-108); CREATININE 0.8 mg/dL (0.7-1.3); GFR > 60 ML/MIN (>=60 (CALC)); GFR FOR AFR.AMER. > 60 ML/MIN (>=60 (CALC)); LIPASE 39 u/l (23-300); SGOT/AST 22 u/l (19-48); SODIUM 139 mmol/l (137-146); TOTAL PROTEIN 6.8 g/dL (6.3-8.2)
[2020-03-13] MEDS ORDERED: TAMSULOSIN0.4 MG PO (13:30)
[2020-03-13] MEDS ORDERED: HYDROCO/APAP1 TA9 PO (13:30)
[2020-03-13] MEDS ORDERED: OMNI-PAC300 MG PO (13:30)
[2020-03-13 14:33] VITALS: BP 154/66
== END 2020-03-13 14:33 | disposition home or self-care (01) | DRG 694 ==
LOC: ED 10:24
PROVIDERS: Family Medicine
DX: N20.9 Urinary calculus, unspecified (principal); N39.0 Urinary tract infection, site not specified; J44.9 Chronic obstructive pulmonary disease, unspecified; Z95.2 Presence of prosthetic heart valve; Z86.73 Personal history of transient ischemic attack (TIA), and cerebral infarction without residual deficits; Z20.828 Contact with and (suspected) exposure to other viral communicable diseases

== ENCOUNTER 2020-08-04 17:15 | Emergency (ER) | payer OTHER, MEDICARE ==
[~2020-08-04 17:15] MED LIST changes: +HYDROCO/APAP1 TA9 PO; +OMNI-PAC300 MG PO
[2020-08-04 18:48] VITALS: BP 155/66
== END 2020-08-04 19:00 | disposition home or self-care (01) | DRG 605 ==
LOC: ED 17:15
PROC: 0HQLXZZ Repair Left Lower Leg Skin, External Approach (ICD-10-PCS; principal; 2020-08-04)
DX: S81.012A Laceration without foreign body, left knee, initial encounter (principal); K50.90 Crohn's disease, unspecified, without complications; I25.10 Atherosclerotic heart disease of native coronary artery without angina pectoris; J44.9 Chronic obstructive pulmonary disease, unspecified; W26.0XXA Contact with knife, initial encounter; Y93.89 Activity, other specified; Y92.009 Unspecified place in unspecified non-institutional (private) residence as the place of occurrence of the external cause; Z86.73 Personal history of transient ischemic attack (TIA), and cerebral infarction without residual deficits

== ENCOUNTER 2020-08-07 23:22 | Inpatient (IN) | payer OTHER, MEDICARE ==
[~2020-08-07] VITALS: Ht 182.9 cm; Wt 124.0 kg
[2020-08-08 00:46] LABS: HEMATOCRIT 39.2 % (39.0-50.0); HEMOGLOBIN 12.3 g/dl (14.0-18.0); IMMATURE GRANULOCYTES 0.5 % (0.0-5.0); MEAN CELL VOLUME 88.3 fL CALC (80.0-100.0); MEAN CORPUSCULAR HGB 27.7 pG CALC (26.0-32.0); MEAN CORPUSCULAR HGB CONC 31.4 g/dL CAL (32.0-36.0); NEUT# 3.67 thou/uL (1.82-7.42); RED BLOOD COUNT 4.44 mill/uL (4.70-6.10); RED CELL DISTRI WIDTH 15.5 % (11.5-15.5)
[2020-08-08 00:49] LABS: ALBUMIN 3.5 g/dL (3.2-5.0); ALKALINE PHOSPHATASE 115 u/l (38-126); ANION GAP 6 (6-22 (CALC)); BILIRUBIN, TOTAL 1.2 mg/dL (0.0-1.4); BUN 23 mg/dL (8-23); BUN/CREATININE RATIO 25 (12-20 (CALC)); CHLORIDE 101 mmol/l (95-108); CREATININE 0.9 mg/dL (0.7-1.3); GFR > 60 ML/MIN (>=60 (CALC)); GFR FOR AFR.AMER. > 60 ML/MIN (>=60 (CALC)); POTASSIUM 4.4 mmol/l (3.5-5.1); SGOT/AST 20 u/l (19-48); SODIUM 136 mmol/l (137-146); TOTAL PROTEIN 6.2 g/dL (6.3-8.2)
[2020-08-08 00:51] LABS: CARBON DIOXIDE 33 mmol/l (22-30)
--- NOTE | 2020-08-08 04:18 | NUR ---
PT IS NOTED TO BE SLEEPING IN THE ROOM
--- NOTE | 2020-08-08 06:49 | NUR ---
REPORT RECEIVED FROM PRADIP NURSE AND PER NURSE NO TELE ORDERS.
--- NOTE | 2020-08-08 06:50 | NUR ---
GAVE REPORT TO MED SURGDAYO RN
[2020-08-08 08:03] VITALS: BP 169/78
--- NOTE | 2020-08-08 08:49 | NUR ---
PATIENT SITTING IN THE SIDE OF THE BED. ASSESSMENT DONE. PATIENT STATED THAT THE PAIN MEDICATION ER GAVE HIM HELPED HIM. PATIENT IS A&O X3. LUNGS SOUND CLEAR/DIMINISHED . LEFT KNEE IS SWOLLEN WITH REDNESS AND OLD DRAINAGE NOTED. LEFT KNEE PICTURE TAKEN. LEFT KNEE IS WARM TO THE TOUCH. OLD LEFT ARM BRUISE NOTED. SAFETY PRECAUTIONS REINFORCED AND CALL LIGHT IN REACH.
[2020-08-08 10:01] LABS: URINE BILIRUBIN - DIPSTICK NEGATIVE (NEGATIVE); URINE BLOOD DIPSTICK TRACE-LYSED (NEGATIVE); URINE COLOR YELLOW; URINE GLUCOSE - DIPSTICK NEGATIVE (NEGATIVE); URINE KETONE NEGATIVE (NEGATIVE); URINE LEUK ESTERASE NEGATIVE (NEGATIVE); URINE PH 5.5 (4.5-8.0); URINE PROTEIN - DIPSTICK NEGATIVE (NEG-TRACE); URINE SPECIFIC GRAVITY >=1.030
[2020-08-08 10:06] LABS: URINE NITRITE - DIPSTICK NEGATIVE (Negative)
--- NOTE | 2020-08-08 12:00 | NUR ---
PATIENT IS EATING HIS LUNCH WITH NO S/S OF DISTRESS NOTED. PATIENT DENIES ANY NEEDS AT THIS TIME. CALL LIGHT IN REACH.
--- NOTE | 2020-08-08 14:14 | NUR ---
S: SAYDA RAINEY is a 74 M who presents with CELLULITIS. He has a history of CELLULITIS. All medications in patient's chart were reviewed. O: VS: BP 169/78, P 85, RR 20,T 96 W 124kg, 73IN, Scr=0.9,CrCl= >90ml/min A: Blood culture is pending Urine culture is pending P: Patient is on ZOSYN 3.375 Q6H. Vancomycin ordered for pharmacy to dose. Start Vancomycin 1750IV Q12H. Vancomycin trough is drawn before the 4th dose on 08/09/20 @2130. Vancomycin goal trough is between <10-20 mcg/ml>. Pharmacy will follow and or advise on antibiotics use as needed. BEL MAYO PHARMD
[2020-08-08 14:50] VITALS: BP 128/60
--- NOTE | 2020-08-08 15:00 | NUR ---
PATIENT IS RESTING IN BED USING HIS CELL PHONE. PATIENT STATED PAIN MEDICATION HELPED SOME PAIN IS NOW 6/10. TRY TO OBTAIN LEFT KNEE CULTURE OF WOUND BUT IT WAS DRY SCAB AND NO DRAINAGE NOTED AT THIS TIME. PATIENT DENIES NEEDS AT THIS TIME. CALL LIGHT IN REACH.
[2020-08-08 19:00] VITALS: BP 124/60
--- NOTE | 2020-08-09 01:02 | NUR ---
PATIENT IS ALERT AND ORIENTED X3. ABLE TO MAKE NEEDS KNOWN. RESPIRATIONS EASY ON ROOM AIR. HR REGULAR. ABDOMEN ROUND WITH SCABS BELOW UNBILICUS FROM SURGERY 3 YEARS AGO. LEFT KNEE WARM, RED AND EDEMATOUS WITH PAIN. C/O ADDRESSED WITH PRN MORPHINE WITH SOME POSITIVE EFFFECT. PATIENT REPORT ULTRAM IS INEFFECTIVE. CURRENTLY PAIN 5/10 AFTER MORPHINE ADMINISTRATION. VAD RAC PATIENT CURRENTLY S/L. BED IN LOW POSITION. CALL LIGHT WITHIN REACH.
[2020-08-09 05:02] VITALS: BP 110/55
[2020-08-09 05:49] LABS: HEMATOCRIT 37.7 % (39.0-50.0); HEMOGLOBIN 11.6 g/dl (14.0-18.0); IMMATURE GRANULOCYTES 0.5 % (0.0-5.0); MEAN CELL VOLUME 89.3 fL CALC (80.0-100.0); MEAN CORPUSCULAR HGB 27.5 pG CALC (26.0-32.0); MEAN CORPUSCULAR HGB CONC 30.8 g/dL CAL (32.0-36.0); NEUT# 3.48 thou/uL (1.82-7.42); RED BLOOD COUNT 4.22 mill/uL (4.70-6.10); RED CELL DISTRI WIDTH 15.9 % (11.5-15.5)
[2020-08-09 06:04] LABS: ALBUMIN 3.4 g/dL (3.2-5.0); ALKALINE PHOSPHATASE 101 u/l (38-126); ANION GAP 9 (6-22 (CALC)); BUN 18 mg/dL (8-23); BUN/CREATININE RATIO 19 (12-20 (CALC)); CARBON DIOXIDE 29 mmol/l (22-30); CHLORIDE 101 mmol/l (95-108); CREATININE 0.9 mg/dL (0.7-1.3); GFR > 60 ML/MIN (>=60 (CALC)); GFR FOR AFR.AMER. > 60 ML/MIN (>=60 (CALC)); POTASSIUM 4.4 mmol/l (3.5-5.1); SGOT/AST 20 u/l (19-48); SODIUM 135 mmol/l (137-146); TOTAL PROTEIN 5.9 g/dL (6.3-8.2)
--- NOTE | 2020-08-09 06:44 | NUR ---
CALLED BACK. UPDATE GIVEN.
--- NOTE | 2020-08-09 06:53 | NUR ---
Patient is screened for rehab intervention and it is felt that he would benefit from ST and PT consults if medical agrees
--- NOTE | 2020-08-09 07:00 | NUR ---
RECIEVED REPORT FROM PONCE XIAO
[2020-08-09 07:15] VITALS: BP 115/53
--- NOTE | 2020-08-09 07:42 | NUR ---
PT REQUESTING BREATHING TREATMENT. RT AT BEDSIDE
--- NOTE | 2020-08-09 08:02 | NUR ---
PT RESTING IN SEMI FOWLERS POSITION UPON ENTERING ROOM. PT IS A/O X3. ASSESSMENT AND VITALS COMPLETED. BP 115/53, HR 79, O2 98. RESPIRATIONS ARE EVEN AND UNLABORED WITH NO DISTRESS NOTED. LUNG SOUNDS ARE CLEAR. HEART RHYTHM NORMAL. BOWEL SOUNDS ARE ACTIVE.ABD FIRM AND DISTENDED. SCABED NOTED ON ABD. RADIAL PULSES STRONG. PEDAL PULSES WEAK. 2+ EDEMA NOTED TO LEFT LEG, REDDNESS AND SMALL SCAB NOTED, ELVATED ON PILLOWS X2. #22G IN RAC FLUSHED, SITE APPEARS HEALTHY AND PATENT. PT COMPLAINS OF 5/10 PAIN, PT TO BE MEDICATED PER EMAR. PT DENEIS OF ANY OTHER NEEDS AT THIS TIME. ALL SAFETY PRECAUTIONS ARE IN PLACE WITH CALL LIGHT IN REACH. WILL CONTINUE TO MONITOR
--- NOTE | 2020-08-09 09:30 | NUR ---
PT ARRRIVED BACK TO [facility] ROOM 281 VIA WHEELCHAIR IN STABLE CONDITION. PT ASSISTED BACK INTO BACK. PT DENIES OF ANY NEEDS AT THIS TIME. ALL SAFETY PRECAUTIONS ARE IN PLACE WITH CALL LIGHT IN REACH. WILL CONTINUE TO MONITOR.
--- NOTE | 2020-08-09 09:42 | NUR ---
DR DURON AT BEDSIDE
--- NOTE | 2020-08-09 10:31 | NUR ---
LAB AT BEDSIDE TO COLLECT H&H.
--- NOTE | 2020-08-09 10:32 | NUR ---
PT TRANSPORTED TO US IN STABLE CONDITION ACCOMPAINED BY PONCE LANE VIA WHEELCHAIR.
--- NOTE | 2020-08-09 12:00 | NUR ---
PT RESTING IN SEMI FOWLERS POSITION. RESPIRATIONS ARE EVEN AND UNLABORED ON ROOM AIR. #22G IN RAC INFUSING WITH IV ANTIBIOTICS, SITE REMAINS HEALTHY AND PATENT. PT COMPLAINS OF 8/10 PAIN, MORPHINE ADMINISTERED. LEFT LEG EVELATED ON 2 PILLOWS. PT DENIES OF ANY OTHER NEEDS AT THIS TIME. ALL SAFETY PRECAUTIONS ARE IN PLACE WITH CALL LIGHT IN REACH. WILL CONTINUE TO MONITOR.
[2020-08-09 15:42] VITALS: BP 109/54
--- NOTE | 2020-08-09 16:31 | NUR ---
PT RESTING IN SEMI FOWLERS POSITION. REPSIRATIONS ARE EVEN AND UNLABORED WITH NO DISTRESS NOTED. LLE REMAINS ELEVATED ON PILLOWS. PT COMPLAINS OF 8/10 PAIN IN LLE, ULTRAM SUGGESTED DUE TO MORPHINE NOT BEING DUE. PT REFUSED. #20G IN [place] REMAINS IN PLACE, SITE REMAINS HEALTHY AND PATENT. PT DENIES FO ANY OTHER NEEDS. ALL SAFETY PRECAUTIONS ARE IN PLACE WITH CALL LIGHT IN REACH. WILL CONTINUE TO MONITOR.
[2020-08-09 19:00] VITALS: BP 119/52
--- NOTE | 2020-08-09 19:07 | NUR ---
1906-Report taken from BRENT Bettencourt and handoff completed successfully. Pt lying in bed with eyes closed resting. Pt states the pain medicatio Germaine gave him worked. Pt denies any needs during initial assessment and handoff. Bed low and locked. Call light and phone within reach. Will return to go over plan of care and any needs the patient will have during this shift. Pt stable.
--- NOTE | 2020-08-09 23:15 | NUR ---
2315-Pt called nurses station complaining about pain in arm. After assessing IV insertion site I noticed the area was red and slightly swollen. I immediately stopped infusion. IV catheter removed, tip intact. Warm compress and elevation administered. drawing supervisor notified and he said he would help start IV access. Pt tolerated procedure well. Redness and swelling visually improved. Will continue to monitor for any continued pain or swelling.
[2020-08-10 04:00] VITALS: BP 144/57
--- NOTE | 2020-08-10 04:00 | NUR ---
0400-Pt sleeping in bed, no s/s of distress. Bed low and locked. Call light and phone within reach. Will continue to closely monitor.
[2020-08-10 05:35] LABS: HEMATOCRIT 36.2 % (39.0-50.0); MEAN CELL VOLUME 89.6 fL CALC (80.0-100.0); MEAN CORPUSCULAR HGB 27.2 pG CALC (26.0-32.0); MEAN CORPUSCULAR HGB CONC 30.4 g/dL CAL (32.0-36.0); RED BLOOD COUNT 4.04 mill/uL (4.70-6.10); RED CELL DISTRI WIDTH 15.9 % (11.5-15.5)
[2020-08-10 06:01] LABS: ANION GAP 9 (6-22 (CALC)); BUN 19 mg/dL (8-23); BUN/CREATININE RATIO 20 (12-20 (CALC)); CARBON DIOXIDE 27 mmol/l (22-30); CHLORIDE 102 mmol/l (95-108); CREATININE 0.9 mg/dL (0.7-1.3); GFR > 60 ML/MIN (>=60 (CALC)); GFR FOR AFR.AMER. > 60 ML/MIN (>=60 (CALC)); POTASSIUM 4.2 mmol/l (3.5-5.1); SODIUM 134 mmol/l (137-146)
--- NOTE | 2020-08-10 07:00 | NUR ---
RECIEVED REPORT FROM PONCE WOLF
[2020-08-10 07:12] VITALS: BP 115/51
--- NOTE | 2020-08-10 07:42 | NUR ---
PT RESTING IN SEMI FOWLERS POSITION. PT IS A/O X3. ASSESSMENT AND VITALS COMPLETED. BP 115/51, HR 68, O2 94% ON ROOM AIR. RESPIRATIONS ARE EVEN AND UNLABROED WITH NO DISTRESS NOTED. LUNG SOUNDS ARE DIMINISHED. HEART RHYTHM IS NORMAL. BOWEL SOUNDS ARE ACTIVE IN ALL QUADRANTS. RADIAL PULSES STRONG. PEDAL PULSES WEAK. 2+EDEMA WITH REDDNESS AND WAMR TO TOUCH NOTED TO LLE. SCABBED AREA OVER LEFT KNEE. SCABBED AREA NOETD TO ABD THAT IS FIRM AND DISTENDED. #22G MAX FLUSHED, SITE REMAINS HEALTHY AND PATENT. PT COMPLAINS OF 9/10 PAIN IN [place], MORPHINE ADMINISTERED. PT DENIES OF ANY OTHER NEEDS AT THIS TIME. ALL SAFETY PRECAUTIONS ARE IN PLACE WITH CALL LIGHT IN REACH. WILL CONTINUE TO MONITOR.
--- NOTE | 2020-08-10 08:45 | NUR ---
DR DURON AT BEDSIDE
--- NOTE | 2020-08-10 10:18 | NUR ---
WOUND CARE AT BEDSIDE
--- NOTE | 2020-08-10 10:44 | NUR ---
XI REMPVED BY WOUND CARE. IODOFORM PACCKING APPLIED AND DRY DRESSING WITH KRELEX AND SEEMA WRAP APPLIED BY WOUND CARE. WOUND CULTURE OBTAINED AND SENT TO LAB. DRESSING TO LEFT KNEE REMAINS CDI. ULTRAM ADMINISTERED FOR PAIN.
--- NOTE | 2020-08-10 11:51 | NUR ---
PT SITTING UP ON SIDE OF BED EATING LUNCH. RESPIRATIONS ARE EVEN AND UNLABORED WITH NO DISTRESS NOTED. #22G IN RAC INFUSING WITH IVF ANTIBIOTICS, SITE REMAINS HEALTHY AND PATENT. PT DENIES OF ANY NEEDS AT THIS TIME. ALL SAFETY PRECAUTIONS ARE IN PLACE WITHN CALL LIGHT IN REACH. WILL CONTINUE TO MONITOR
--- NOTE | 2020-08-10 13:24 | NUR ---
S: SAYDA RAINEY is a 74 M who presents with cellulitis. He has a history of coronary artery disease, peripheral vascular disease, hyperthyroidism, hypertension, congestive heart failure, COPD, PE, BPH, chrohns disease, venous stasis ulcers, remote sternal osteomyletis with sternal plate, and lower GI bleed. All medications in patient's chart were reviewed. O: Vancomycin trough 08/09/20 @ 2130 = 14 mcg/ml VS: BP 115/51 mmHg, P 73 bpm, RR 12 bpm,T 97.2 F W 124 kg, HT 72 in, Scr= 0.9 mg/dl,CrCl= 111.9 ml/min A: Blood culture is pending. Wound culture is pending. P: Patient is on cefepime 2 g IV BID. Vancomycin ordered for pharmacy to dose. Continue Vancomycin 1,750 mg IV Q12H. Vancomycin trough is drawn before the 4th dose on 08/11/20 @ 09:30. Vancomycin goal trough is between 10-15 mcg/ml. Pharmacy will follow and or advise on antibiotics use as needed.
--- NOTE | 2020-08-10 13:55 | NUR ---
PT REPORTS 9/10 LLE PAIN. PT MEDICATED WITH MORPHINE. RESPIRATIONS REMAINS EVEN AND UNLABORED. ALL SAFETY PRECAUTIONS ARE IN PLACE WITH CALL LIGHT IN REACH. WILL CONTINUE TO MONITOR
[2020-08-10 15:18] VITALS: BP 128/63
--- NOTE | 2020-08-10 16:49 | NUR ---
PT SITTING UP ON SIDE OF BED. RESPIRATIONS ARE EVEN AND UNLABORED WITH NO DISTRESS NOTED.#22G IN RAC REMAIONS IN PLACE. DRESSING TO LLE REMAINS CDI. PT DENIES OF ANY PAINS OR DISCOMFORTS AT THIS TIME. ALL SAFETY PRECAUTIONS ARE IN PLACE WITH CALLL LIGHT IN REACH. WILL CONTINUE TO MONITOR
[2020-08-10 19:00] VITALS: BP 123/60
--- NOTE | 2020-08-10 20:00 | NUR ---
PATIENT RESTING IN BED AT THIS TIME-AWAKE ALERT AND ORIENTEDX3. PATIENT WITH C/P LEFT KNEE PAIN-MEDICATED WITH MORPHINE 2MG IVP ORDERED FOR PAIN. IV SITE TO RIGHT AC WITH GOOD BLOOD RETURN. DRESSING TO LEFT KNEE INTACT AND SECURED WITH SEEMA WRAP. LLE IS RED AND SWOLLEN. PATIENT WITH LARGE VENTRAL HERNIA WITH SCABBED AREAS NOTED. DRESSING APPLIED PER PATIENT REQUEST. VOIDING JAJA URINE IN URINAL.SAFETY PRECAUTIONS REINFORCED. CALL LIGHT IN REACH. WILL CONT TO MONITOR.
--- NOTE | 2020-08-10 22:00 | NUR ---
PATIENT SITTING UP ON THE SIDE OF THE BED. VANCO INFUSING ORDERED VIA LAC SITE. DRESSING APPLIED TO SCABBED AREAS ON ABD PER PATIENT REQUEST. VOIDING JAJA URINE IUN URINAL. CALL LIGHT IN REACH. WILL CONT TO MONITOR.
--- NOTE | 2020-08-11 00:44 | NUR ---
VANCO FINISHED AND IV SITE FLUSHED. PROVIDED PATIENT WITH SNACK. DRESSING TO LEFT KNEE INTACT AND SECURED WITH SEEMA WRAP. SAFETY PRECAUTIONS REINFORCED. CALL LIGHT IN REACH. WILL CONT TO MONITOR.
--- NOTE | 2020-08-11 01:56 | NUR ---
PATIENT RESTING IN BED-MEDICATED FOR C/O LEFT KNEE PAIN WITH MORPHINE 2MG IVP FOR 9/10 PAIN SCALE. CALL LIGHT IN REACH. WILL CONT TO MONITOR.
[2020-08-11 04:00] VITALS: BP 112/54
--- NOTE | 2020-08-11 04:25 | NUR ---
PATIENT POSITIONED ON LEFT SIDE-RESPS ARE EVEN AND UNLABORED. PT APPEARS SLEEPING AT THIS TIME. CALL LIGHT IN REACH. WILL CONT TO MONITOR.
[2020-08-11 05:43] LABS: HEMATOCRIT 36.2 % (39.0-50.0); MEAN CELL VOLUME 89.8 fL CALC (80.0-100.0); MEAN CORPUSCULAR HGB 27.3 pG CALC (26.0-32.0); MEAN CORPUSCULAR HGB CONC 30.4 g/dL CAL (32.0-36.0); RED BLOOD COUNT 4.03 mill/uL (4.70-6.10); RED CELL DISTRI WIDTH 15.8 % (11.5-15.5)
[2020-08-11 05:52] LABS: ANION GAP 8 (6-22 (CALC)); BUN 17 mg/dL (8-23); BUN/CREATININE RATIO 22 (12-20 (CALC)); CARBON DIOXIDE 29 mmol/l (22-30); CHLORIDE 101 mmol/l (95-108); CREATININE 0.8 mg/dL (0.7-1.3); GFR > 60 ML/MIN (>=60 (CALC)); GFR FOR AFR.AMER. > 60 ML/MIN (>=60 (CALC)); SODIUM 135 mmol/l (137-146)
--- NOTE | 2020-08-11 07:00 | NUR ---
RECIEVED REPORT FROM PONCE SHELL
[2020-08-11 07:10] VITALS: BP 146/56
--- NOTE | 2020-08-11 07:32 | NUR ---
PT SITTING UP ON SIDE OF BED. PT IS A/O X3. ASSESSMENT AND VITALS COMPLETED. BP 146/56, HR 63, O2 95% ON ROOM AIR. REPSIRATIONS ARE EVEN AND UNLABORED WITH NO DISTRSS NOTED. LUNG SOUNDS ARE CLEAR/DIMINSHED. BOWEL SOUNDS ARE ACTIVE. RADIAL PULSES STRONG.PEDAL PULSES WEAK. #22G IN RAC FLUSHED, SITE REMAINS HEALTHY AND PATENT. DRESSING TO ABD AND LEFT LEG REMAINS CDI. REDNESS AND 2+EDEMA NOTED TO LLE. PT COMPLAINS OF 7/10 PAIN IN LLE. MORPHINE ADMINISTERED. PT DENIES OF ANY OTHER NEEDS AT THIS TIME. ALL SAFETY PRECAUTIONS ARE IN PLACE WITH CALL LIGHT IN REACH. WILL CONTINUE TO MONITOR.
--- NOTE | 2020-08-11 08:50 | NUR ---
DR DURON AT BEDSIDE
--- NOTE | 2020-08-11 09:10 | NUR ---
LAB AT BEDSIDE
--- NOTE | 2020-08-11 09:27 | NUR ---
PT TRANSPORTED TO CT VIA WHEELCHAIR ACCOMPAINED BY STAFF IN STABLE CONDITION.
--- NOTE | 2020-08-11 10:00 | NUR ---
PT BACK TO [facility] ROOM 261 IN STABLE CONDITION. PT SETTLED IN BED. IV ANTIBIOTICS CONNECTED, SITE REMAINS HEALTHY AND PATENT. PT DENIES OF ANY NEEDS. ALL SAFETY PRECAUTIONS ARE IN PLACE WITH CALL LIGHT IN REACH. WILL CONTINUE TO MONITOR
--- NOTE | 2020-08-11 10:00 | NUR ---
RETURNED TO ROOM WITHOUT INCIDENCE. SITTING UP ON SIDE OF BED.
--- NOTE | 2020-08-11 10:15 | NUR ---
VANCO TROUGH RESULTING IN 18. REDOSING BY PHARMACY
--- NOTE | 2020-08-11 11:17 | NUR ---
WOUND CARE AT BEDSIDE. DRESSING CHANGED BY WOUND CARE
--- NOTE | 2020-08-11 12:00 | NUR ---
PT SITTING UP IN SEMI FOWLERS POSITION. VANCO INFUSING IN #22G RAC, SITE REMAINS HEALTHY AND PATENT. DRESSING TO LEFT KNEE AND ABD REMAINS CDI. PT COMPLAINS OF 10/10 LLE PAIN, MORPHINE ADMINISTERED PER EMAR. PT DENIES OF ANY OTHER NEEDS. ALL SAFETY PRECAUTIONS ARE IN PLACE WITH CALL LIGHT IN REACH. WILL CONTIUE TO MONITOR.
[2020-08-11 14:30] VITALS: BP 113/66
--- NOTE | 2020-08-11 15:39 | NUR ---
PT RESTING IN SEMI FOWLERS POSITION. RESPIRATIONS ARE EVEN AND UNLABORED WITH NO DISTRESS NOTED. #22G IN RAC REMAINS IN PLACE. DRESSING TO LLE AND ABD IS CDI. LLE ELVATED ON PILLOW. PT DENIES OF ANY NEEDS AT THIS TIME. ALL SAFETY PRECAUTIONS ARE IN PLACE WITH CALL LIGHT IN REACH. WILL CONTINUE TO MONITOR.
--- NOTE | 2020-08-11 15:45 | NUR ---
S: SAYDA RAINEY is a 74 M who presents with cellulitis. He has a history of coronary artery disease, peripheral vascular disease, hyperthyroidism, hypertension, congestive heart failure, COPD, PE, BPH, chrons disease, venous stasis ulcers, remote sternal osteomyletis with sternal plate, and lower GI bleed. All medications in patient's chart were reviewed. O: Vancomycin Trough (08/11/20): 18 mcg/ml VS: BP 146/56 mmHg, P 63 bpm, RR 19 bpm,T 97.3 F W 124 kg, HT 72 in, Scr= 1 mg/dl,CrCl= 111.9 ml/min A: Blood culture is pending. Wound culture is pending. P: Patient is on Cefepine 2 g IV BID. Vancomycin ordered for pharmacy to dose. Start Vancomycin 1,250 mg IV Q12H. Vancomycin trough is drawn before the 4th dose on 08/12/20 @ 22:30. Vancomycin goal trough is between 10-15 mcg/ml. Pharmacy will follow and or advise on antibiotics use as needed.
[2020-08-11 19:00] VITALS: BP 138/68
--- NOTE | 2020-08-11 19:11 | NUR ---
PATIENT SITTING UP IN BED WATCHING TV-AWAKE ALERT AND ORIENTEDX3. PATIENT WITH PAIN LEVEL OF 5 AT THIS TIME AFTER BEING MEDICATED WITH MORPHINE ON DAYSHIFT. DRESSING TO LEFT KNEE INTACT-LLE REMAINS RED AND SWOLLEN. ENCOURAGED ELEVATION OF LLE ON PILLOWS. VOIDING JAJA URINE IN URINAL. STATES THAT HE HAD SMALL BM TODAY-DRINKING MIRALAX AT THIS TIME. ABD REMAINS DISTENDED-LARGE VENTRAL HERNIA. SALINE LOCK TO RAC-SITE REMAINS HEALTHY. SAFETY PRECAUTIONS REINFORCED. CALL LIGHT IN REACH, WILL CONT TO MONITOR.
--- NOTE | 2020-08-11 22:43 | NUR ---
PATIENT SITTING UP IN BED WATCHING TV-Strategic Blue ORDERED VIA [facility] SITE. PROVIDED WITH HS SNACK. VOIDED 700CC OF YELLOW URINE IN URINAL. CALL LIGHT IN REACH. WILL CONT TO MONITOR.
--- NOTE | 2020-08-12 00:47 | NUR ---
[facility] FINISHED VIA [facility]ITE. PATIENT C/O SEVERE LEFT KNEE PAIN-MEDICATED WITH MORPHINE 2MG IVP ORDERED FOR PAIN. CALL LIGHT IN REACH. WILL CONT TO MONITOR.
[2020-08-12 04:00] VITALS: BP 122/53
--- NOTE | 2020-08-12 04:30 | NUR ---
PATIENT RESTING IN BED AT THIS TIME. CONT TO USE URINAL AT BEDSIDE TO VOID. DRESSING TO LEFT KNEE INTACT. CALL LIGHT IN REACH. WILL CONT TO MONITOR.
[2020-08-12 05:38] LABS: HEMOGLOBIN 11.8 g/dl (14.0-18.0); MEAN CELL VOLUME 88.4 fL CALC (80.0-100.0); MEAN CORPUSCULAR HGB 27.4 pG CALC (26.0-32.0); MEAN CORPUSCULAR HGB CONC 31.1 g/dL CAL (32.0-36.0); RED BLOOD COUNT 4.3 mill/uL (4.70-6.10)
[2020-08-12 06:06] LABS: ANION GAP 13 (6-22 (CALC)); BUN 17 mg/dL (8-23); BUN/CREATININE RATIO 20 (12-20 (CALC)); CARBON DIOXIDE 26 mmol/l (22-30); CHLORIDE 101 mmol/l (95-108); CREATININE 0.8 mg/dL (0.7-1.3); GFR > 60 ML/MIN (>=60 (CALC)); GFR FOR AFR.AMER. > 60 ML/MIN (>=60 (CALC)); MAGNESIUM 2.2 mg/dL (1.6-2.3); POTASSIUM 4.5 mmol/l (3.5-5.1); SODIUM 135 mmol/l (137-146)
--- NOTE | 2020-08-12 07:00 | NUR ---
PT REPORT RECEIVED FROM NIGHT NURSESULEMAN.
[2020-08-12 07:40] VITALS: BP 126/63
--- NOTE | 2020-08-12 12:00 | NUR ---
PT WAS FOUND RESTING IN BED;PT HAS NO REPORTS OF PAIN AT THIS TIME;SAFETY PRECAUTIONS IN PLACE;CALL LIGHT WITHIN REACH;BED IN LOWEST POSITION;WILL CONTINUE TO MONITOR.
[2020-08-12 14:55] VITALS: BP 137/75
--- NOTE | 2020-08-12 16:00 | NUR ---
PT WAS FOUND SITTING IN BEDSIDE CHAIR;PT REPORTS PAIN OF 7/10 IN LEFT KNEE;PT MEDICATED WITH ULTRAM 50MG PO;#22G IV IN RAC IS SL, PATENT AND FREE OF COMPLICATIONS;SAFETY PRECAUTIONS IN PLACE;CALL LIGHT WITHIN [facility];BED IN LOWEST POSITION;WILL CONTINUE TO MONITOR.
--- NOTE | 2020-08-12 16:47 | NUR ---
PATIENT STATES HIS PAIN LEVEL IS A 6 AT PRESENT TIME AND PAIN MEDICATION IS HELPING.
--- NOTE | 2020-08-12 19:05 | NUR ---
REPORT FROM IRENE SERRA. ASSUME PT CARE.
[2020-08-12 19:13] VITALS: BP 136/63
--- NOTE | 2020-08-12 19:22 | NUR ---
PT RESTING IN BED. NO APPARENT DISTRESS NOTED. ALERT AND ORIENTED X3. DISCUSSED POC. PT VERBALIZED UNDERSTANDING. SNACKS PROVIDED UPON REQUEST. CALL LIGHT WITHIN REACH. WILL CONTINUE TO MONITOR.
--- NOTE | 2020-08-12 22:02 | NUR ---
PT C/O LEFT KNEE PAIN, MEDICATED WITH PRN ULTRAM AT THIS TIME. PT REQUESTING ICE CREAM ALSO PROVIDED UPON REQUEST. NO APPARENT DISTRESS NOTED. PT DENIES ANY CURRENT WANTS OR NEEDS. CALL LIGHT WITHIN REACH. WILL CONTINUE TO MONITOR.
--- NOTE | 2020-08-13 01:53 | NUR ---
PT SITTING UP AT BEDSIDE. NO APPARENT DISTRESS NOTED. ALERT AND ORIENTED X3. SNACKS PROVIDED UPON REQUEST. URINAL EMPTIED. CALL LIGHT WITHIN REACH. WILL CONTINUE TO MONITOR.
[2020-08-13 04:00] VITALS: BP 110/60
[2020-08-13 05:03] LABS: HEMATOCRIT 34.9 % (39.0-50.0); HEMOGLOBIN 11.1 g/dl (14.0-18.0); MEAN CELL VOLUME 87.3 fL CALC (80.0-100.0); MEAN CORPUSCULAR HGB 27.8 pG CALC (26.0-32.0); MEAN CORPUSCULAR HGB CONC 31.8 g/dL CAL (32.0-36.0); RED CELL DISTRI WIDTH 16.2 % (11.5-15.5)
[2020-08-13 05:25] LABS: ANION GAP 11 (6-22 (CALC)); BUN 20 mg/dL (8-23); BUN/CREATININE RATIO 27 (12-20 (CALC)); CARBON DIOXIDE 25 mmol/l (22-30); CHLORIDE 100 mmol/l (95-108); CREATININE 0.7 mg/dL (0.7-1.3); GFR > 60 ML/MIN (>=60 (CALC)); GFR FOR AFR.AMER. > 60 ML/MIN (>=60 (CALC)); POTASSIUM 4.4 mmol/l (3.5-5.1); SODIUM 132 mmol/l (137-146)
--- NOTE | 2020-08-13 05:41 | NUR ---
PT RESTING IN BED WITH EYES CLOSED. NO APPARENT DISTRESS NOTED. RESPIRATIONS EVEN AND UNLABORED. CALL LIGHT WITHIN REACH. WILL CONTINUE TO MONITOR.
[2020-08-13 07:30] VITALS: BP 140/66
--- NOTE | 2020-08-13 07:44 | NUR ---
SHIFT CHANGE REPORT, PT SLEEPING SOUNDLY AT THIS TIME, BREATHING EVEN AND NON-LABORED, NO SIGN DISCOMFOT, CALL CONKLIN IN REACH AND BED LOCKED IN LOWEST POSITION.
[2020-08-13] MEDS ORDERED: KEFLEX500 MG PO (08:28)
[2020-08-13] MEDS ORDERED: AMOX/K CLAV875 M1 PO (08:56)
[2020-08-13] MEDS ORDERED: FLORASTOR250 M1 PO (08:59)
[2020-08-13] MEDS ORDERED: ULTRAM50 MG PO (09:04)
[2020-08-13 09:19] VITALS: BP 140/66
--- NOTE | 2020-08-13 14:58 | NUR ---
Discharge instructions given. Patient verbalizes understanding of same. Discharged in stable condition via Wheelchair to Home with family. All belongings sent with pt.
== END 2020-08-13 14:42 | disposition home health service (06) | DRG 603 ==
LOC: ED 23:22 → ED-I 08-08 04:00 → ED 08-08 04:18 → MS2 08-08 04:19 → ED-I 08-08 04:19 → MS2 08-08 07:48
PROVIDERS: Emergency Medicine; Nurse Practitioner; Nurse Practitioner Family; ADMIT Internal Medicine; ATTEND Internal Medicine
DX: L03.116 Cellulitis of left lower limb (principal); I13.0 Hypertensive heart and chronic kidney disease with heart failure and stage 1 through stage 4 chronic kidney disease, or unspecified chronic kidney disease; K50.90 Crohn's disease, unspecified, without complications; L02.416 Cutaneous abscess of left lower limb; S81.012A Laceration without foreign body, left knee, initial encounter; N18.9 Chronic kidney disease, unspecified; I50.9 Heart failure, unspecified; I25.10 Atherosclerotic heart disease of native coronary artery without angina pectoris; J44.9 Chronic obstructive pulmonary disease, unspecified; I87.303 Chronic venous hypertension (idiopathic) without complications of bilateral lower extremity; E05.90 Thyrotoxicosis, unspecified without thyrotoxic crisis or storm; K59.00 Constipation, unspecified; G20 Parkinson's disease; D64.9 Anemia, unspecified; K43.2 Incisional hernia without obstruction or gangrene; F32.9 Major depressive disorder, single episode, unspecified; F41.9 Anxiety disorder, unspecified; B95.61 Methicillin susceptible Staphylococcus aureus infection as the cause of diseases classified elsewhere; W26.0XXA Contact with knife, initial encounter; Z79.01 Long term (current) use of anticoagulants; Z79.82 Long term (current) use of aspirin; Z95.1 Presence of aortocoronary bypass graft; Z95.3 Presence of xenogenic heart valve; Z87.891 Personal history of nicotine dependence; Z95.828 Presence of other vascular implants and grafts; Z95.5 Presence of coronary angioplasty implant and graft; Z86.718 Personal history of other venous thrombosis and embolism; Z86.711 Personal history of pulmonary embolism; Z90.49 Acquired absence of other specified parts of digestive tract; Z86.73 Personal history of transient ischemic attack (TIA), and cerebral infarction without residual deficits; Z20.822 Contact with and (suspected) exposure to COVID-19
CPT/HCPCS: G0378; J0692; J3370; Q3014; Q9967

== ENCOUNTER 2021-03-18 16:08 | Emergency (ER) | payer OTHER, MEDICARE ==
[~2021-03-18] VITALS: Ht 182.9 cm; Wt 118.0 kg
[~2021-03-18 16:08] MED LIST changes: +AMOX/K CLAV875 M1 PO; +FLORASTOR250 M1 PO; +KEFLEX500 MG PO; +ULTRAM50 MG PO
[2021-03-18] MEDS ORDERED: KEFLEX500 MG PO (19:19)
[2021-03-18 19:44] LABS: HEMATOCRIT 40.6 % (39.0-50.0); HEMOGLOBIN 12.6 g/dl (14.0-18.0); IMMATURE GRANULOCYTES 0.6 % (0.0-5.0); MEAN CELL VOLUME 87.9 fL CALC (80.0-100.0); MEAN CORPUSCULAR HGB 27.3 pG CALC (26.0-32.0); NEUT# 2.61 thou/uL (1.82-7.42); RED BLOOD COUNT 4.62 mill/uL (4.70-6.10); RED CELL DISTRI WIDTH 16.3 % (11.5-15.5)
[2021-03-18 19:56] LABS: ALBUMIN 3.8 g/dL (3.2-5.0); ALKALINE PHOSPHATASE 116 u/l (38-126); ANION GAP 9 (6-22 (CALC)); BILIRUBIN, TOTAL 0.8 mg/dL (0.0-1.4); BUN 17 mg/dL (8-23); BUN/CREATININE RATIO 21 (12-20 (CALC)); CARBON DIOXIDE 33 mmol/l (22-30); CHLORIDE 98 mmol/l (95-108); CREATININE 0.8 mg/dL (0.7-1.3); GFR > 60 ML/MIN (>=60 (CALC)); GFR FOR AFR.AMER. > 60 ML/MIN (>=60 (CALC)); POTASSIUM 4.1 mmol/l (3.5-5.1); SGOT/AST 19 u/l (19-48); SODIUM 136 mmol/l (137-146)
[2021-03-18 20:01] LABS: ACT PARTIAL THROMBO TIME 26.7 SECONDS (20.0-32.5); INTERNATIONAL NORMALIZED RATIO 1.1 RATIO (0.7-1.3)
[2021-03-18 20:55] VITALS: BP 132/61
== END 2021-03-18 20:55 | disposition home or self-care (01) | DRG 603 ==
LOC: ED 16:08
DX: L03.116 Cellulitis of left lower limb (principal); S80.812A Abrasion, left lower leg, initial encounter; K50.90 Crohn's disease, unspecified, without complications; I10 Essential (primary) hypertension; J44.9 Chronic obstructive pulmonary disease, unspecified; X58.XXXA Exposure to other specified factors, initial encounter; Z86.711 Personal history of pulmonary embolism; Z95.828 Presence of other vascular implants and grafts; Z86.73 Personal history of transient ischemic attack (TIA), and cerebral infarction without residual deficits

== ENCOUNTER 2021-09-20 11:41 | Emergency (ER) | payer OTHER, MEDICARE ==
[~2021-09-20] VITALS: Ht 182.9 cm; Wt 112.0 kg
[2021-09-20] VITALS (11 sets, daily range): BP systolic 99–146; BP diastolic 49–74
[2021-09-20 12:42] LABS: ALBUMIN 3.8 g/dL (3.2-5.0); ALKALINE PHOSPHATASE 88 u/l (38-126); ANION GAP 15 (6-22 (CALC)); BILIRUBIN, TOTAL 0.9 mg/dL (0.0-1.4); BUN 25 mg/dL (8-23); BUN/CREATININE RATIO 31 (12-20 (CALC)); CHLORIDE 106 mmol/l (95-108); CREATININE 0.8 mg/dL (0.7-1.3); GFR FOR AFR.AMER. > 60 ML/MIN (>=60 (CALC)); GFR OTHER RACES > 60 ML/MIN (>=60 (CALC)); SGOT/AST 20 u/l (19-48); SODIUM 142 mmol/l (137-146); TOTAL PROTEIN 6.6 g/dL (6.3-8.2)
[2021-09-20 12:44] LABS: CARBON DIOXIDE 25 mmol/l (22-30)
[2021-09-20 12:51] LABS: HEMATOCRIT 40.8 % (39.0-50.0); HEMOGLOBIN 12.9 g/dl (14.0-18.0); IMMATURE GRANULOCYTES 0.3 % (0.0-5.0); INTERNATIONAL NORMALIZED RATIO 1.1 RATIO (0.7-1.3); MEAN CELL VOLUME 85.4 fL CALC (80.0-100.0); MEAN CORPUSCULAR HGB CONC 31.6 g/dL CAL (32.0-36.0); NEUT# 10.43 thou/uL (1.82-7.42); PROTHROMBIN TIME 11.4 SECONDS (9.0-12.5); RED BLOOD COUNT 4.78 mill/uL (4.70-6.10); RED CELL DISTRI WIDTH 15.9 % (11.5-15.5)
[2021-09-20 12:54] LABS: MYOGLOBIN 109 ng/mL (0 - 121)
== END 2021-09-20 16:55 | disposition short-term general hospital (02) | DRG 195 ==
LOC: ED 11:41
PROVIDERS: Emergency Medicine
DX: J18.9 Pneumonia, unspecified organism (principal); R79.89 Other specified abnormal findings of blood chemistry; I10 Essential (primary) hypertension; J44.9 Chronic obstructive pulmonary disease, unspecified; Z86.711 Personal history of pulmonary embolism; Z86.73 Personal history of transient ischemic attack (TIA), and cerebral infarction without residual deficits; Z95.828 Presence of other vascular implants and grafts; Z20.822 Contact with and (suspected) exposure to COVID-19
CPT/HCPCS: Q9967

== ENCOUNTER 2022-02-03 10:35 | Emergency (ER) | payer OTHER, MEDICARE ==
[~2022-02-03] VITALS: Ht 182.9 cm; Wt 127.2 kg
[2022-02-03] VITALS (11 sets, daily range): BP systolic 98–142; BP diastolic 45–62
[2022-02-03 11:23] LABS: HEMATOCRIT 36.7 % (39.0-50.0); IMMATURE GRANULOCYTES 0.6 % (0.0-5.0); MEAN CELL VOLUME 82.8 fL CALC (80.0-100.0); MEAN CORPUSCULAR HGB 24.6 pG CALC (26.0-32.0); MEAN CORPUSCULAR HGB CONC 29.7 g/dL CAL (32.0-36.0); NEUT# 8.15 thou/uL (1.82-7.42); RED BLOOD COUNT 4.43 mill/uL (4.70-6.10); RED CELL DISTRI WIDTH 15.4 % (11.5-15.5)
[2022-02-03 11:36] LABS: ALBUMIN 4.1 g/dL (3.2-5.0); ALKALINE PHOSPHATASE 111 u/l (38-126); ANION GAP 17 (6-22 (CALC)); BILIRUBIN, TOTAL 0.7 mg/dL (0.0-1.4); BUN 22 mg/dL (8-23); BUN/CREATININE RATIO 26 (12-20 (CALC)); CARBON DIOXIDE 25 mmol/l (22-30); CHLORIDE 100 mmol/l (95-108); CREATININE 0.9 mg/dL (0.7-1.3); GFR FOR AFR.AMER. > 60 ML/MIN (>=60 (CALC)); GFR OTHER RACES > 60 ML/MIN (>=60 (CALC)); HEMOGLOBIN 10.9 g/dl (14.0-18.0); POTASSIUM 4.3 mmol/l (3.5-5.1); SGOT/AST 23 u/l (19-48); SODIUM 138 mmol/l (137-146); TOTAL PROTEIN 7.3 g/dL (6.3-8.2)
[2022-02-03] MEDS ORDERED: ZPAK PO (12:27)
[2022-02-03] MEDS ORDERED: TESSALON PERLE100 MG PO (12:27)
== END 2022-02-03 13:00 | disposition home or self-care (01) | DRG 203 ==
LOC: ED 10:35
PROVIDERS: Emergency Medicine
DX: J20.9 Acute bronchitis, unspecified (principal); R07.9 Chest pain, unspecified

== ENCOUNTER 2022-02-25 13:00 | Inpatient (IN) | payer OTHER, MEDICARE ==
[2022-02-25] VITALS (15 sets, daily range): BP systolic 92–158; BP diastolic 44–73
[~2022-02-25] VITALS: Ht 182.9 cm; Wt 115.2 kg
[~2022-02-25 13:00] MED LIST changes: +TESSALON PERLE100 MG PO; +ZPAK PO
[2022-02-25] MEDS ORDERED: TOLTERODINE TART2 MG PO (13:58)
[2022-02-25] MEDS ORDERED: ACETAMINOPHEN500 MG PO (13:59)
[2022-02-25] MEDS ORDERED: LISINOPRIL5 MG PO (14:00)
[2022-02-25 14:05] LABS: HEMATOCRIT 35.6 % (39.0-50.0); HEMOGLOBIN 10.8 g/dl (14.0-18.0); IMMATURE GRANULOCYTES 0.4 % (0.0-5.0); MEAN CELL VOLUME 81.8 fL CALC (80.0-100.0); MEAN CORPUSCULAR HGB 24.8 pG CALC (26.0-32.0); MEAN CORPUSCULAR HGB CONC 30.3 g/dL CAL (32.0-36.0); NEUT# 6.01 thou/uL (1.82-7.42); RED BLOOD COUNT 4.35 mill/uL (4.70-6.10); RED CELL DISTRI WIDTH 15.6 % (11.5-15.5)
[2022-02-25 14:13] LABS: ALBUMIN 3.6 g/dL (3.2-5.0); ALKALINE PHOSPHATASE 85 u/l (38-126); ANION GAP 12 (6-22 (CALC)); BILIRUBIN, TOTAL 0.5 mg/dL (0.0-1.4); BUN 25 mg/dL (8-23); BUN/CREATININE RATIO 30 (12-20 (CALC)); CARBON DIOXIDE 26 mmol/l (22-30); CHLORIDE 105 mmol/l (95-108); CREATININE 0.8 mg/dL (0.7-1.3); GFR FOR AFR.AMER. > 60 ML/MIN (>=60 (CALC)); GFR OTHER RACES > 60 ML/MIN (>=60 (CALC)); POTASSIUM 4.5 mmol/l (3.5-5.1); SGOT/AST 23 u/l (19-48); SODIUM 138 mmol/l (137-146); TOTAL PROTEIN 6.3 g/dL (6.3-8.2)
[2022-02-25 14:44] LABS: TSH, 3RD GENERATION 0.62 uIU/mL (0.47 - 4.68)
[2022-02-25 14:59] LABS: INTERNATIONAL NORMALIZED RATIO 1.1 RATIO (0.7-1.3); PROTHROMBIN TIME 10.6 SECONDS (9.0-12.5)
[2022-02-25 15:12] LABS: URINE BILIRUBIN - DIPSTICK NEGATIVE (NEGATIVE); URINE BLOOD DIPSTICK NEGATIVE (NEGATIVE); URINE COLOR YELLOW; URINE GLUCOSE - DIPSTICK NEGATIVE (NEGATIVE); URINE KETONE NEGATIVE (NEGATIVE); URINE LEUK ESTERASE NEGATIVE (NEGATIVE); URINE PROTEIN - DIPSTICK NEGATIVE (NEG-TRACE); URINE UROBILINOGEN - DIPSTICK 0.2 E.U./dL (0.2)
[2022-02-25 15:15] LABS: URINE NITRITE - DIPSTICK NEGATIVE (Negative)
[2022-02-26] VITALS (10 sets, daily range): BP systolic 101–176; BP diastolic 34–69
[2022-02-26 05:36] LABS: HEMATOCRIT 32.7 % (39.0-50.0); HEMOGLOBIN 10.1 g/dl (14.0-18.0); IMMATURE GRANULOCYTES 0.6 % (0.0-5.0); MEAN CELL VOLUME 81.3 fL CALC (80.0-100.0); MEAN CORPUSCULAR HGB 25.1 pG CALC (26.0-32.0); MEAN CORPUSCULAR HGB CONC 30.9 g/dL CAL (32.0-36.0); NEUT# 2.61 thou/uL (1.82-7.42); RED BLOOD COUNT 4.02 mill/uL (4.70-6.10); RED CELL DISTRI WIDTH 15.6 % (11.5-15.5)
[2022-02-26 05:45] LABS: ALBUMIN 3.1 g/dL (3.2-5.0); ALKALINE PHOSPHATASE 75 u/l (38-126); ANION GAP 9 (6-22 (CALC)); BILIRUBIN, TOTAL 0.4 mg/dL (0.0-1.4); BUN 23 mg/dL (8-23); BUN/CREATININE RATIO 26 (12-20 (CALC)); CARBON DIOXIDE 26 mmol/l (22-30); CHLORIDE 105 mmol/l (95-108); CREATININE 0.9 mg/dL (0.7-1.3); GFR FOR AFR.AMER. > 60 ML/MIN (>=60 (CALC)); GFR OTHER RACES > 60 ML/MIN (>=60 (CALC)); POTASSIUM 4.2 mmol/l (3.5-5.1); SGOT/AST 18 u/l (19-48); SODIUM 136 mmol/l (137-146); TOTAL PROTEIN 5.5 g/dL (6.3-8.2)
[2022-02-26 15:40] LABS: CHOLESTEROL HDL RATIO 3.9 (<4.4 (CALC))
[2022-02-27 00:15] VITALS: BP 99/38
[2022-02-27 00:16] VITALS: BP 103/34
[2022-02-27 04:17] VITALS: BP 117/54
[2022-02-27 05:32] LABS: HEMATOCRIT 34.5 % (39.0-50.0); HEMOGLOBIN 10.5 g/dl (14.0-18.0); IMMATURE GRANULOCYTES 0.6 % (0.0-5.0); MEAN CELL VOLUME 81.2 fL CALC (80.0-100.0); MEAN CORPUSCULAR HGB 24.7 pG CALC (26.0-32.0); MEAN CORPUSCULAR HGB CONC 30.4 g/dL CAL (32.0-36.0); NEUT# 2.37 thou/uL (1.82-7.42); RED BLOOD COUNT 4.25 mill/uL (4.70-6.10); RED CELL DISTRI WIDTH 15.7 % (11.5-15.5)
[2022-02-27 05:51] LABS: ANION GAP 11 (6-22 (CALC)); BUN 20 mg/dL (8-23); BUN/CREATININE RATIO 29 (12-20 (CALC)); CARBON DIOXIDE 25 mmol/l (22-30); CHLORIDE 106 mmol/l (95-108); CREATININE 0.7 mg/dL (0.7-1.3); GFR FOR AFR.AMER. > 60 ML/MIN (>=60 (CALC)); GFR OTHER RACES > 60 ML/MIN (>=60 (CALC)); POTASSIUM 4.3 mmol/l (3.5-5.1); SODIUM 137 mmol/l (137-146)
[2022-02-27 05:54] VITALS: BP 141/32
[2022-02-27 10:46] VITALS: BP 116/45
== END 2022-02-27 15:56 | disposition home or self-care (01) | DRG 69 ==
LOC: ED 13:00 → ED-I 16:31 → ED 17:35 → MS2 17:36
PROVIDERS: Family Medicine; Psychiatry & Neurology Neurology; ADMIT Internal Medicine; ATTEND Internal Medicine
PROC: 3E0234Z Introduction of Serum, Toxoid and Vaccine into Muscle, Percutaneous Approach (ICD-10-PCS; principal; 2022-02-26)
DX: G45.9 Transient cerebral ischemic attack, unspecified (principal); I11.0 Hypertensive heart disease with heart failure; I50.9 Heart failure, unspecified; I25.10 Atherosclerotic heart disease of native coronary artery without angina pectoris; I73.9 Peripheral vascular disease, unspecified; J44.9 Chronic obstructive pulmonary disease, unspecified; E05.90 Thyrotoxicosis, unspecified without thyrotoxic crisis or storm; G62.9 Polyneuropathy, unspecified; Z95.1 Presence of aortocoronary bypass graft; Z95.5 Presence of coronary angioplasty implant and graft; Z23 Encounter for immunization; Z95.3 Presence of xenogenic heart valve; Z87.891 Personal history of nicotine dependence; Z86.73 Personal history of transient ischemic attack (TIA), and cerebral infarction without residual deficits; Z86.711 Personal history of pulmonary embolism; Z79.01 Long term (current) use of anticoagulants; Z79.82 Long term (current) use of aspirin; Z90.49 Acquired absence of other specified parts of digestive tract; Z20.822 Contact with and (suspected) exposure to COVID-19
CPT/HCPCS: Q9967

== ENCOUNTER 2022-03-26 09:12 | Emergency (ER) | payer OTHER, MEDICARE ==
[~2022-03-26] VITALS: Ht 182.9 cm; Wt 72.5 kg
[~2022-03-26 09:12] MED LIST changes: +ACETAMINOPHEN500 MG PO; +LISINOPRIL5 MG PO; +TOLTERODINE TART2 MG PO
[2022-03-26 09:28] VITALS: BP 127/64
[2022-03-26 09:31] VITALS: BP 113/53
[2022-03-26 09:32] VITALS: BP 113/53
[2022-03-26] MEDS ORDERED: PAXLOVID PO (09:36)
== END 2022-03-26 10:02 | disposition home or self-care (01) | DRG 178 ==
LOC: ED 09:12
DX: U07.1 COVID-19 (principal); K50.90 Crohn's disease, unspecified, without complications; J44.9 Chronic obstructive pulmonary disease, unspecified; I10 Essential (primary) hypertension; Z85.51 Personal history of malignant neoplasm of bladder; Z95.1 Presence of aortocoronary bypass graft; Z79.01 Long term (current) use of anticoagulants; Z95.2 Presence of prosthetic heart valve; Z86.73 Personal history of transient ischemic attack (TIA), and cerebral infarction without residual deficits; Z86.711 Personal history of pulmonary embolism

== ENCOUNTER 2022-05-29 11:08 | Emergency (ER) | payer OTHER, MEDICARE ==
[2022-05-29] VITALS (14 sets, daily range): BP systolic 115–185; BP diastolic 51–86
[~2022-05-29] VITALS: Ht 182.9 cm; Wt 113.4 kg
[~2022-05-29 11:08] MED LIST changes: +PAXLOVID PO
[2022-05-29 12:45] LABS: URINE BILIRUBIN - DIPSTICK NEGATIVE (NEGATIVE); URINE BLOOD DIPSTICK SMALL (NEGATIVE); URINE COLOR YELLOW; URINE GLUCOSE - DIPSTICK NEGATIVE (NEGATIVE); URINE KETONE NEGATIVE (NEGATIVE); URINE LEUK ESTERASE NEGATIVE (NEGATIVE); URINE PROTEIN - DIPSTICK NEGATIVE (NEG-TRACE); URINE UROBILINOGEN - DIPSTICK 0.2 E.U./dL (0.2)
[2022-05-29 12:45] LABS: BASO% 0.3 % (0-3); EOS% 2.6 % (0-8); HEMATOCRIT 33.3 % (39.0-50.0); HEMOGLOBIN 9.6 g/dl (14.0-18.0); IMMATURE GRANULOCYTES 0.9 % (0.0-5.0); LYMPH% 25.6 % (15-41); MEAN CELL VOLUME 77.1 fL CALC (80.0-100.0); MEAN CORPUSCULAR HGB 22.2 pG CALC (26.0-32.0); MEAN CORPUSCULAR HGB CONC 28.8 g/dL CAL (32.0-36.0); MONO% 12.7 % (2-13); NEUT# 2.01 thou/uL (1.82-7.42); NEUT% 57.9 % (42-76); RED BLOOD COUNT 4.32 mill/uL (4.70-6.10); RED CELL DISTRI WIDTH 16.8 % (11.5-15.5)
[2022-05-29 12:56] LABS: URINE NITRITE - DIPSTICK NEGATIVE (Negative)
[2022-05-29 12:58] LABS: URINE SQUAMOUS EPITHELIAL CELL RARE EPI/hpf (0-FEW)
[2022-05-29 12:59] LABS: ALBUMIN 3.7 g/dL (3.2-5.0); ALKALINE PHOSPHATASE 94 u/l (38-126); ANION GAP 9 (6-22 (CALC)); BILIRUBIN, TOTAL 0.5 mg/dL (0.2-1.3); BUN 11 mg/dL (8-23); BUN/CREATININE RATIO 15 (12-20 (CALC)); CARBON DIOXIDE 30 mmol/l (22-30); CHLORIDE 106 mmol/l (95-108); CREATININE 0.8 mg/dL (0.7-1.3); GFR FOR AFR.AMER. > 60 ML/MIN (>=60 (CALC)); GFR OTHER RACES > 60 ML/MIN (>=60 (CALC)); POTASSIUM 4.4 mmol/l (3.5-5.1); SGOT/AST 22 u/l (19-48); SODIUM 141 mmol/l (137-146); TOTAL PROTEIN 6.5 g/dL (6.3-8.2)
[2022-05-29] MEDS ORDERED: MEDDOSEPAK PO (14:10)
[2022-05-29] MEDS ORDERED: ZPAK PO (14:10)
== END 2022-05-29 14:50 | disposition home or self-care (01) | DRG 292 ==
LOC: ED 11:08
PROVIDERS: Nurse Practitioner
DX: I11.0 Hypertensive heart disease with heart failure (principal); I50.9 Heart failure, unspecified; J44.1 Chronic obstructive pulmonary disease with (acute) exacerbation; Z86.711 Personal history of pulmonary embolism; Z86.73 Personal history of transient ischemic attack (TIA), and cerebral infarction without residual deficits; Z95.1 Presence of aortocoronary bypass graft; Z20.822 Contact with and (suspected) exposure to COVID-19

== ENCOUNTER 2022-08-23 12:06 | Observation (INO) | payer OTHER, MEDICARE ==
[~2022-08-23] VITALS: Ht 182.9 cm; Wt 111.6 kg
[2022-08-23] VITALS (18 sets, daily range): BP systolic 105–207; BP diastolic 50–94
[~2022-08-23 12:06] MED LIST changes: -CARB/LEVO1 TA4 PO; +CARB/LEVO1 TA5 PO
[2022-08-23 13:44] LABS: BASO% 0.5 % (0-3); EOS% 1.8 % (0-8); HEMATOCRIT 43.7 % (39.0-50.0); HEMOGLOBIN 13.1 g/dl (14.0-18.0); IMMATURE GRANULOCYTES 0.5 % (0.0-5.0); LYMPH% 20.5 % (15-41); MEAN CELL VOLUME 83.1 fL CALC (80.0-100.0); MEAN CORPUSCULAR HGB 24.9 pG CALC (26.0-32.0); MONO% 8.4 % (2-13); NEUT% 68.3 % (42-76); RED BLOOD COUNT 5.26 mill/uL (4.70-6.10); RED CELL DISTRI WIDTH 17.2 % (11.5-15.5)
[2022-08-23 13:46] LABS: ALBUMIN 3.8 g/dL (3.2-5.0); ALKALINE PHOSPHATASE 98 u/l (38-126); ANION GAP 13 (6-22 (CALC)); BUN 18 mg/dL (8-23); BUN/CREATININE RATIO 24 (12-20 (CALC)); CARBON DIOXIDE 29 mmol/l (22-30); CHLORIDE 101 mmol/l (95-108); CREATININE 0.8 mg/dL (0.7-1.3); GFR FOR AFR.AMER. > 60 ML/MIN (>=60 (CALC)); GFR OTHER RACES > 60 ML/MIN (>=60 (CALC)); POTASSIUM 4.6 mmol/l (3.5-5.1); SGOT/AST 36 u/l (19-48); SODIUM 138 mmol/l (137-146); TOTAL PROTEIN 6.7 g/dL (6.3-8.2)
[2022-08-23 13:47] LABS: BILIRUBIN, TOTAL 0.9 mg/dL (0.2-1.3)
[2022-08-24] VITALS (7 sets, daily range): BP systolic 110–193; BP diastolic 51–82
[2022-08-24 05:50] LABS: ALKALINE PHOSPHATASE 120 u/l (38-126); ANION GAP 12 (6-22 (CALC)); BILIRUBIN, TOTAL 0.6 mg/dL (0.2-1.3); BUN 20 mg/dL (8-23); BUN/CREATININE RATIO 23 (12-20 (CALC)); CARBON DIOXIDE 29 mmol/l (22-30); CHLORIDE 99 mmol/l (95-108); CREATININE 0.8 mg/dL (0.7-1.3); GFR FOR AFR.AMER. > 60 ML/MIN (>=60 (CALC)); GFR OTHER RACES > 60 ML/MIN (>=60 (CALC)); MAGNESIUM 1.9 mg/dL (1.6-2.3); POTASSIUM 3.9 mmol/l (3.5-5.1); SGOT/AST 27 u/l (19-48); SODIUM 136 mmol/l (137-146); TOTAL PROTEIN 7.3 g/dL (6.3-8.2)
[2022-08-24 05:54] LABS: BASO% 0.2 % (0-3); EOS% 1.7 % (0-8); HEMATOCRIT 43.7 % (39.0-50.0); HEMOGLOBIN 13.2 g/dl (14.0-18.0); IMMATURE GRANULOCYTES 0.4 % (0.0-5.0); LYMPH% 19.7 % (15-41); MEAN CELL VOLUME 82.5 fL CALC (80.0-100.0); MEAN CORPUSCULAR HGB 24.9 pG CALC (26.0-32.0); MEAN CORPUSCULAR HGB CONC 30.2 g/dL CAL (32.0-36.0); MONO% 5.6 % (2-13); NEUT# 3.87 thou/uL (1.82-7.42); NEUT% 72.4 % (42-76); RED BLOOD COUNT 5.3 mill/uL (4.70-6.10); RED CELL DISTRI WIDTH 16.9 % (11.5-15.5)
[2022-08-24] MEDS ORDERED: METHOCARBAMOL500 MG PO (07:35)
[2022-08-24] MEDS ORDERED: ZYRTEC10 M5 PO (07:36)
[2022-08-24] MEDS ORDERED: B121000 MC1 PO (08:42)
[2022-08-24] MEDS ORDERED: CYMBALTA60 MG PO (08:48)
[2022-08-24] MEDS ORDERED: VESICARE5 M1 PO (08:50)
[2022-08-25] VITALS (9 sets, daily range): BP systolic 107–171; BP diastolic 50–70
[2022-08-25 01:15] LABS: URINE BILIRUBIN - DIPSTICK NEGATIVE (NEGATIVE); URINE BLOOD DIPSTICK LARGE (NEGATIVE); URINE COLOR YELLOW; URINE GLUCOSE - DIPSTICK NEGATIVE (NEGATIVE); URINE KETONE NEGATIVE (NEGATIVE); URINE LEUK ESTERASE NEGATIVE (NEGATIVE); URINE PH 5.5 (4.5-8.0); URINE PROTEIN - DIPSTICK NEGATIVE (NEG-TRACE); URINE SPECIFIC GRAVITY 1.015; URINE UROBILINOGEN - DIPSTICK 0.2 E.U./dL (0.2)
[2022-08-25 01:31] LABS: URINE NITRITE - DIPSTICK NEGATIVE (Negative)
[2022-08-25 01:32] LABS: URINE RBC 25-50 RBC/hpf (0-5); URINE SQUAMOUS EPITHELIAL CELL FEW EPI/hpf (0-FEW)
[2022-08-25 05:21] LABS: HEMATOCRIT 43.6 % (39.0-50.0); HEMOGLOBIN 13.5 g/dl (14.0-18.0); MEAN CELL VOLUME 81.2 fL CALC (80.0-100.0); MEAN CORPUSCULAR HGB 25.1 pG CALC (26.0-32.0); RED BLOOD COUNT 5.37 mill/uL (4.70-6.10); RED CELL DISTRI WIDTH 16.7 % (11.5-15.5)
[2022-08-25 05:38] LABS: ALKALINE PHOSPHATASE 114 u/l (38-126); ANION GAP 15 (6-22 (CALC)); BUN 24 mg/dL (8-23); BUN/CREATININE RATIO 25 (12-20 (CALC)); CARBON DIOXIDE 29 mmol/l (22-30); CHLORIDE 96 mmol/l (95-108); CREATININE 0.9 mg/dL (0.7-1.3); GFR FOR AFR.AMER. > 60 ML/MIN (>=60 (CALC)); GFR OTHER RACES > 60 ML/MIN (>=60 (CALC)); MAGNESIUM 1.8 mg/dL (1.6-2.3); POTASSIUM 3.6 mmol/l (3.5-5.1); SGOT/AST 30 u/l (19-48); SODIUM 136 mmol/l (137-146); TOTAL PROTEIN 6.9 g/dL (6.3-8.2)
[2022-08-25 05:39] LABS: BILIRUBIN, TOTAL 0.9 mg/dL (0.2-1.3)
[2022-08-26 04:21] VITALS: BP 156/73
[2022-08-26 05:40] LABS: BASO% 0.4 % (0-3); EOS% 1.5 % (0-8); HEMATOCRIT 46.3 % (39.0-50.0); HEMOGLOBIN 14.4 g/dl (14.0-18.0); IMMATURE GRANULOCYTES 1.1 % (0.0-5.0); LYMPH% 25.3 % (15-41); MEAN CELL VOLUME 81.1 fL CALC (80.0-100.0); MEAN CORPUSCULAR HGB 25.2 pG CALC (26.0-32.0); MEAN CORPUSCULAR HGB CONC 31.1 g/dL CAL (32.0-36.0); MONO% 8.9 % (2-13); NEUT# 2.88 thou/uL (1.82-7.42); NEUT% 62.8 % (42-76); RED BLOOD COUNT 5.71 mill/uL (4.70-6.10); RED CELL DISTRI WIDTH 16.5 % (11.5-15.5)
[2022-08-26 06:07] LABS: ALBUMIN 4.2 g/dL (3.2-5.0); ALKALINE PHOSPHATASE 122 u/l (38-126); ANION GAP 16 (6-22 (CALC)); BILIRUBIN, TOTAL 0.8 mg/dL (0.2-1.3); BUN 30 mg/dL (8-23); BUN/CREATININE RATIO 30 (12-20 (CALC)); CARBON DIOXIDE 30 mmol/l (22-30); CHLORIDE 94 mmol/l (95-108); GFR FOR AFR.AMER. > 60 ML/MIN (>=60 (CALC)); GFR OTHER RACES > 60 ML/MIN (>=60 (CALC)); POTASSIUM 3.5 mmol/l (3.5-5.1); SGOT/AST 31 u/l (19-48); SODIUM 137 mmol/l (137-146); TOTAL PROTEIN 7.9 g/dL (6.3-8.2)
[2022-08-26 08:26] VITALS: BP 146/75
[2022-08-26 18:00] VITALS: BP 126/57
[2022-08-26 18:36] VITALS: BP 126/57
[2022-08-26 23:42] VITALS: BP 117/63
[2022-08-27 00:03] VITALS: BP 117/63
[2022-08-27 03:46] VITALS: BP 151/76
[2022-08-27 04:42] VITALS: BP 151/76
[2022-08-27 05:02] LABS: BASO% 0.3 % (0-3); HEMATOCRIT 43.1 % (39.0-50.0); HEMOGLOBIN 13.3 g/dl (14.0-18.0); IMMATURE GRANULOCYTES 1.5 % (0.0-5.0); LYMPH% 30.6 % (15-41); MEAN CELL VOLUME 81.6 fL CALC (80.0-100.0); MEAN CORPUSCULAR HGB 25.2 pG CALC (26.0-32.0); MEAN CORPUSCULAR HGB CONC 30.9 g/dL CAL (32.0-36.0); MONO% 10.4 % (2-13); NEUT# 2.18 thou/uL (1.82-7.42); NEUT% 55.2 % (42-76); RED BLOOD COUNT 5.28 mill/uL (4.70-6.10); RED CELL DISTRI WIDTH 16.3 % (11.5-15.5)
[2022-08-27 05:21] LABS: ANION GAP 13 (6-22 (CALC)); BUN 33 mg/dL (8-23); BUN/CREATININE RATIO 34 (12-20 (CALC)); CARBON DIOXIDE 32 mmol/l (22-30); CHLORIDE 92 mmol/l (95-108); GFR FOR AFR.AMER. > 60 ML/MIN (>=60 (CALC)); GFR OTHER RACES > 60 ML/MIN (>=60 (CALC)); POTASSIUM 3.4 mmol/l (3.5-5.1); SODIUM 134 mmol/l (137-146)
[2022-08-27 08:20] VITALS: BP 140/62
[2022-08-27 09:13] VITALS: BP 140/62
[2022-08-27] MEDS ORDERED: FUROSEMIDE20 MG PO (10:17)
== END 2022-08-27 15:18 | disposition home or self-care (01) | DRG 293 ==
LOC: ED 12:06 → ED-I 14:00 → ED 14:26 → MS2 14:27
PROVIDERS: Family Medicine; Internal Medicine; Nurse Practitioner; Nurse Practitioner Family; ADMIT Internal Medicine; ATTEND Internal Medicine
DX: I11.0 Hypertensive heart disease with heart failure (principal); I50.9 Heart failure, unspecified; I25.10 Atherosclerotic heart disease of native coronary artery without angina pectoris; J44.9 Chronic obstructive pulmonary disease, unspecified; I73.9 Peripheral vascular disease, unspecified; E05.90 Thyrotoxicosis, unspecified without thyrotoxic crisis or storm; G62.9 Polyneuropathy, unspecified; N40.0 Benign prostatic hyperplasia without lower urinary tract symptoms; T50.2X6A Underdosing of carbonic-anhydrase inhibitors, benzothiadiazides and other diuretics, initial encounter; Z91.128 Patient's intentional underdosing of medication regimen for other reason; Z87.891 Personal history of nicotine dependence; Z79.01 Long term (current) use of anticoagulants; Z95.828 Presence of other vascular implants and grafts; Z95.1 Presence of aortocoronary bypass graft; Z86.711 Personal history of pulmonary embolism; Z90.49 Acquired absence of other specified parts of digestive tract; Z95.3 Presence of xenogenic heart valve; Z86.73 Personal history of transient ischemic attack (TIA), and cerebral infarction without residual deficits; Z20.822 Contact with and (suspected) exposure to COVID-19

== ENCOUNTER 2023-04-17 09:20 | Emergency (ER) | payer OTHER, MEDICARE ==
[2023-04-17] VITALS (12 sets, daily range): BP systolic 79–183; BP diastolic 57–84
[~2023-04-17] VITALS: Ht 182.9 cm; Wt 109.1 kg
[~2023-04-17 09:20] MED LIST changes: +B121000 MC1 PO; +CYMBALTA60 MG PO; +METHOCARBAMOL500 MG PO; +VESICARE5 M1 PO; +ZYRTEC10 M5 PO
[2023-04-17 11:06] LABS: ALBUMIN 3.8 g/dL (3.2-5.0); ALKALINE PHOSPHATASE 147 u/l (38-126); ANION GAP 11 (6-22 (CALC)); BUN 17 mg/dL (8-23); BUN/CREATININE RATIO 22 (12-20 (CALC)); CARBON DIOXIDE 29 mmol/l (22-30); CHLORIDE 104 mmol/l (95-108); CREATININE 0.8 mg/dL (0.7-1.3); GFR FOR AFR.AMER. > 60 ML/MIN (>=60 (CALC)); GFR OTHER RACES > 60 ML/MIN (>=60 (CALC)); POTASSIUM 3.6 mmol/l (3.5-5.1); SGOT/AST 25 u/l (19-48); SODIUM 140 mmol/l (137-146); TOTAL PROTEIN 6.8 g/dL (6.3-8.2)
[2023-04-17 11:15] LABS: URINE BLOOD DIPSTICK Trace-lysed (NEGATIVE); URINE GLUCOSE - DIPSTICK Negative (NEGATIVE); URINE KETONE Negative (NEGATIVE); URINE LEUK ESTERASE Negative (NEGATIVE); URINE NITRITE - DIPSTICK Negative (Negative); URINE PH 5.5 (4.5-8.0); URINE PROTEIN - DIPSTICK 30 mg/dL (NEG-TRACE); URINE SPECIFIC GRAVITY 1.025
[2023-04-17 11:16] LABS: BASO% 0.5 % (0-3); EOS% 1.2 % (0-8); HEMATOCRIT 42.7 % (39.0-50.0); HEMOGLOBIN 13.2 g/dl (14.0-18.0); IMMATURE GRANULOCYTES 0.5 % (0.0-5.0); LYMPH% 19.9 % (15-41); MEAN CORPUSCULAR HGB 28.6 pG CALC (26.0-32.0); MEAN CORPUSCULAR HGB CONC 30.9 g/dL CAL (32.0-36.0); MONO% 8.8 % (2-13); NEUT% 69.1 % (42-76); RED BLOOD COUNT 4.62 mill/uL (4.70-6.10); RED CELL DISTRI WIDTH 14.3 % (11.5-15.5)
[2023-04-17 11:18] LABS: MEAN CELL VOLUME 92.4 fL CALC (80.0-100.0)
[2023-04-17 11:20] LABS: URINE COLOR Yellow; URINE EPITHELIAL CELLS FEW EPI/hpf (0-FEW); URINE MUCUS FEW hpf (NONE-FEW); URINE RBC 0-2 RBC/hpf (0-5)
== END 2023-04-17 15:31 | disposition home or self-care (01) | DRG 392 ==
LOC: ED 09:20
PROVIDERS: Emergency Medicine
DX: K59.00 Constipation, unspecified (principal); J44.9 Chronic obstructive pulmonary disease, unspecified; I10 Essential (primary) hypertension; Z86.73 Personal history of transient ischemic attack (TIA), and cerebral infarction without residual deficits; Z86.711 Personal history of pulmonary embolism; Z95.1 Presence of aortocoronary bypass graft; Z95.2 Presence of prosthetic heart valve; Z95.828 Presence of other vascular implants and grafts; Z98.890 Other specified postprocedural states
CPT/HCPCS: Q9967

== ENCOUNTER 2024-04-13 11:50 | Observation (INO) | payer OTHER, MEDICARE ==
[~2024-04-13] VITALS: Ht 182.9 cm; Wt 109.4 kg
[2024-04-13] VITALS (15 sets, daily range): BP systolic 131–196; BP diastolic 46–74
[~2024-04-13 11:50] MED LIST changes: +BENZONATATE150 MG PO; +CYMBALTA30 MG PO; +FERROUS SULFAT325 MG PO; +FOLIC ACID1 MG PO; +LASIX40 MG PO; +LEVOFLOXACIN500MG PO; +OMNICEF300 MG PO; +PROBIOTIC1 TAB PO; +TENORMIN25 MG PO; +ZESTRIL5 M1 PO
--- NOTE | 2024-04-13 11:50 | NUR ---
PT TO ER ROOM VIA EMS.
--- NOTE | 2024-04-13 12:22 | NUR ---
PT RESTINGIN BED. VSS. NO DISTRES SNOTED. URIANL AT BEDSIDE.
[2024-04-13 12:48] LABS: URINE BILIRUBIN - DIPSTICK Negative (NEGATIVE); URINE BLOOD DIPSTICK Large (NEGATIVE); URINE GLUCOSE - DIPSTICK Negative (NEGATIVE); URINE KETONE Negative (NEGATIVE); URINE LEUK ESTERASE Negative (NEGATIVE); URINE NITRITE - DIPSTICK Negative (Negative); URINE PROTEIN - DIPSTICK 30 mg/dL (NEG-TRACE); URINE SPECIFIC GRAVITY 1.015; URINE UROBILINOGEN - DIPSTICK 0.2 E.U./dL (0.2)
[2024-04-13 12:49] LABS: BASO% 0.6 % (0-3); EOS% 1.3 % (0-8); HEMATOCRIT 41.7 % (39.0-50.0); HEMOGLOBIN 13.1 g/dl (14.0-18.0); IMMATURE GRANULOCYTES 0.3 % (0.0-5.0); LYMPH% 17.2 % (15-41); MEAN CELL VOLUME 91.9 fL CALC (80.0-100.0); MEAN CORPUSCULAR HGB 28.9 pG CALC (26.0-32.0); MEAN CORPUSCULAR HGB CONC 31.4 g/dL CAL (32.0-36.0); MONO% 6.3 % (2-13); NEUT# 4.63 thou/uL (1.82-7.42); NEUT% 74.3 % (42-76); RED BLOOD COUNT 4.54 mill/uL (4.70-6.10); RED CELL DISTRI WIDTH 14.5 % (11.5-15.5)
[2024-04-13 12:54] LABS: URINE COLOR Bloody
[2024-04-13 12:55] LABS: URINE RBC 50-100 RBC/hpf (0-5)
[2024-04-13 13:14] LABS: ALBUMIN 3.7 g/dL (3.2-5.0); CARBON DIOXIDE 33 mmol/l (22-30); CHLORIDE 104 mmol/l (95-108); CREATININE 0.7 mg/dL (0.7-1.3); ESTIMATED GFR 94 ML/MIN (>=90 (CALC)); POTASSIUM 4.4 mmol/l (3.5-5.1); SGOT/AST 21 u/l (19-48); TOTAL PROTEIN 6.3 g/dL (6.3-8.2)
[2024-04-13 13:29] LABS: ALKALINE PHOSPHATASE 100 u/l (38-126); ANION GAP 12 (6-22 (CALC)); BUN 15 mg/dL (8-23); BUN/CREATININE RATIO 21 (12-20 (CALC)); SODIUM 145 mmol/l (137-146)
[2024-04-13 13:40] LABS: ACT PARTIAL THROMBO TIME 33.6 SECONDS (20.0-32.5); INTERNATIONAL NORMALIZED RATIO 1.1 RATIO (0.7-1.3)
[2024-04-13] MEDS ORDERED: FUROSEMIDE 40 MG/4 ML SDV IV ONE (13:40)
[2024-04-13 13:42] LABS: PROTHROMBIN TIME 11.6 SECONDS (9.0-12.5)
[2024-04-13] MEDS ORDERED: IPRATROPIUM-Albuterol 0.5MG-2.5MG/3 ML NEB ONE (13:45)
[2024-04-13] MEDS ORDERED: methylPREDNISolone SODIUM SUCC 125 MG/2 ML SDV IV ONE (13:45)
[2024-04-13] MEDS ORDERED: MAGNESIUM HYDROXIDE 30 ML UDC PO PRN (13:55)
[2024-04-13] MEDS ORDERED: ACETAMINOPHEN 325 MG/TAB PO PRN (13:55)
[2024-04-13] MEDS ORDERED: IPRATROPIUM-Albuterol 0.5MG-2.5MG/3 ML NEB PRN (14:00)
[2024-04-13] MEDS ORDERED: traMADol HCL 50 MG/TAB PO PRN (14:00)
[2024-04-13] MEDS ORDERED: FUROSEMIDE 40 MG/4 ML SDV IV SCH (14:30)
--- NOTE | 2024-04-13 14:30 | NUR ---
800ML BLOODY URINE COLLECTED.
--- NOTE | 2024-04-13 14:45 | NUR ---
PT REPORT CALLED AND GIVEN TO PONCE MARIO [facility].
--- NOTE | 2024-04-13 14:49 | NUR ---
PATIENT ADMITTED FROM ED TO MS ROOM 270. PATIENT A&OX4 AND ABLE TO MAKE NEEDS KNOWN. PATIENT ORIENTED TO ROOM, CALL LIGHT, AND SURROUNDINGS, PATIENT VERBALIZED UNDERSTANDING. PATIENT HAS OLD SURGICAL SCAR TO ABDOMEN AND DISCOLORATION TO LOWER EXTREMITIES. PATIENT DENIES ANY NEEDS AT THIS TIME. PATIENT BED AT LOWEST LEVEL, TOP 2 SIDERAILS UP, AND CALL LIGHT WITHIN REACH.
--- NOTE | 2024-04-13 15:20 | NUR ---
NOT ABLE TO OBTAIN PT WEIGHT BECAUSE STANDING SCALE HAS A BATTERY, NURSE AWARE
--- NOTE | 2024-04-13 20:00 | NUR ---
PT SITTING UP ON THE EDGE OF THE BED. ALERT AND ORIENTED X4. DENIES ANY SOB AT THIS TIME. LUNGS SOUNDS WERE DIMINISHED ALL THROUGHOUT. NO DISTRESS NOTED. ABDOMEN IS DISTENDED AND SOFT WITH ACTIVE BOWEL SOUNDS. TRACE EDEMA NOTED IN LOWER EXTREMITIES. SCALY, DRY AND REDDISH SKIN ON LOWER EXTREMITIES. WEAK PEDLA PULSES. 22 G IV RAC FLUSHED WITH 5 CC AT THIS TIME. CALL LIGHT IN REACH AND SAEFTY PRECAUTIONS ON PLACE.
[2024-04-13] MEDS ORDERED: traZODone HCL 50 MG/TAB PO SCH (21:00)
[2024-04-13] MEDS ORDERED: LISINOPRIL 5 MG/TAB PO SCH (21:00)
[2024-04-13] MEDS ORDERED: TAMSULOSIN HCL 0.4 MG CAP PO SCH (21:00)
[2024-04-13] MEDS ORDERED: ATENOLOL 25 MG TAB PO SCH (21:00)
[2024-04-13] MEDS ORDERED: APIXABAN BASE 5 MG TAB PO SCH (21:00)
[2024-04-13] MEDS ORDERED: ATORVASTATIN CALCIUM 40 MG/TAB PO SCH (21:00)
[2024-04-13] MEDS ORDERED: CARBIDOPA/LEVODOPA 25/100 MG IR 1 COMBO/TAB PO SCH (21:00)
[2024-04-13] MEDS ORDERED: METHOCARBAMOL 500 MG/TAB PO PRN (21:10)
[2024-04-13] MEDS ORDERED: methylPREDNISolone Sod Succ 40 MG/ML SDV IV SCH (22:00)
[2024-04-14] VITALS (7 sets, daily range): BP systolic 122–166; BP diastolic 37–87
--- NOTE | 2024-04-14 | NUR ---
PT RESTING ON BED IN HIS RIGHT SIDE. BREATHING IS EVEN AND UNLABORED. TELE MONITOR ON PLACE SHOWING SR WITH 1ST DEGREE AVD-60. CALL LIGHT IN REACH AND SAFETY PRECAUTIONS ON PLACE.
--- NOTE | 2024-04-14 04:18 | NUR ---
PT RESTING ON BED IN SUPINE POSITION AT THIS TIME. NO DISTRESS NOTED. TELE MONITOR ON PLACE ORDERED. CALL LIGHT IN REACH AND SAFETY PRECAUTIONS ON PLACE
[2024-04-14] MEDS ORDERED: FUROSEMIDE 40 MG/4 ML SDV IV SCH (06:00)
[2024-04-14] MEDS ORDERED: guaiFENesin-CODEINE 200-20 MG/10 ML UDC PO PRN (08:35)
[2024-04-14 08:37] LABS: HEMATOCRIT 47.3 % (39.0-50.0); IMMATURE GRANULOCYTES 0.7 % (0.0-5.0); LYMPH% 10.5 % (15-41); MEAN CELL VOLUME 88.7 fL CALC (80.0-100.0); MEAN CORPUSCULAR HGB 28.5 pG CALC (26.0-32.0); MEAN CORPUSCULAR HGB CONC 32.1 g/dL CAL (32.0-36.0); MONO% 1.1 % (2-13); NEUT# 4.83 thou/uL (1.82-7.42); NEUT% 87.7 % (42-76); RED BLOOD COUNT 5.33 mill/uL (4.70-6.10); RED CELL DISTRI WIDTH 14.2 % (11.5-15.5)
[2024-04-14 08:58] LABS: HEMOGLOBIN 15.2 g/dl (14.0-18.0)
[2024-04-14] MEDS ORDERED: ASPIRIN EC 81 MG/TAB PO SCH (09:00)
[2024-04-14] MEDS ORDERED: FINASTERIDE 5 MG/TAB PO SCH (09:00)
[2024-04-14] MEDS ORDERED: VALPROIC ACID 250 MG/CAP PO SCH (09:00)
[2024-04-14] MEDS ORDERED: ISOSORBIDE MONONITRATE 30 MG TAB PO SCH (09:00)
[2024-04-14] MEDS ORDERED: DULOXETINE HCl 30 MG/CAP PO SCH (09:00)
[2024-04-14] MEDS ORDERED: PANTOPRAZOLE SODIUM Sesquihydr 40 MG/TAB PO SCH (09:00)
[2024-04-14 09:08] LABS: CREATININE 0.7 mg/dL (0.7-1.3); MAGNESIUM 1.9 mg/dL (1.6-2.3); POTASSIUM 4.6 mmol/l (3.5-5.1); TOTAL PROTEIN 7.5 g/dL (6.3-8.2)
[2024-04-14 09:10] LABS: ALBUMIN 4.5 g/dL (3.2-5.0); BILIRUBIN, TOTAL 1.8 mg/dL (0.2-1.3)
[2024-04-14] MEDS ORDERED: AZITHROMYCIN 500 MG in SODIUM CHLORIDE 0.9% 500 ML IV SCH (10:30)
[2024-04-14] MEDS ORDERED: IPRATROPIUM-Albuterol 0.5MG-2.5MG/3 ML NEB SCH (11:00)
--- NOTE | 2024-04-14 12:00 | NUR ---
STABLE, ALL NEEDS ADDRESSED.
--- NOTE | 2024-04-14 16:20 | NUR ---
SITTING UP IN RECLINER, STABLE CONDITION.
--- NOTE | 2024-04-14 19:57 | NUR ---
Pt is alert and orient. He is able to make needds known. Pt complaint of a headache. Medication intervention adminstered. No distress noted. Pt is breathing even and non-labored. Bed is in low position with call light within reach.
[2024-04-15] VITALS (7 sets, daily range): BP systolic 113–150; BP diastolic 33–57
--- NOTE | 2024-04-15 00:20 | NUR ---
Pt is laying in bed with his eyes closed. Non-productive cough noted. Pt has no complaint of pain or discomfort at this time. No distress noted. Breathing remains even and non-labored. Bed in low position with call light within reach.
--- NOTE | 2024-04-15 04:06 | NUR ---
Pt is laying in bed comforably at this time. PRN cough medicine given for non-productive cough with good effect. No distress noted. Breathing remains even and non-labored. Bed in low position with call light within reach.
[2024-04-15 05:32] LABS: HEMATOCRIT 41.4 % (39.0-50.0); IMMATURE GRANULOCYTES 0.2 % (0.0-5.0); LYMPH% 6.6 % (15-41); MEAN CELL VOLUME 90.8 fL CALC (80.0-100.0); MEAN CORPUSCULAR HGB 28.7 pG CALC (26.0-32.0); MEAN CORPUSCULAR HGB CONC 31.6 g/dL CAL (32.0-36.0); MONO% 2.9 % (2-13); NEUT# 7.88 thou/uL (1.82-7.42); NEUT% 90.3 % (42-76); RED BLOOD COUNT 4.56 mill/uL (4.70-6.10); RED CELL DISTRI WIDTH 14.3 % (11.5-15.5)
[2024-04-15 05:40] LABS: HEMOGLOBIN 13.1 g/dl (14.0-18.0)
[2024-04-15 05:52] LABS: CREATININE 0.9 mg/dL (0.7-1.3); MAGNESIUM 1.8 mg/dL (1.6-2.3); POTASSIUM 4.1 mmol/l (3.5-5.1)
[2024-04-15 05:58] LABS: ALBUMIN 3.5 g/dL (3.2-5.0); BILIRUBIN, TOTAL 0.8 mg/dL (0.2-1.3)
--- NOTE | 2024-04-15 07:15 | NUR ---
REPORT RECEIVED FROM PONCE MCCORMICK
--- NOTE | 2024-04-15 07:42 | NUR ---
AT BEDSIDE DISCUSSING POC WITH PT
--- NOTE | 2024-04-15 07:58 | NUR ---
PT MEDICATED WITH PRN ROBITUSSIN AC 5ML PER REQUEST FOR COMPLAINTS OF COUGH.
--- NOTE | 2024-04-15 09:00 | NUR ---
PT RESTING AT BEDSIDE,A&O X3;PT REQUESTS PRN ROBAXIN 750MG PO WHICH WAS ADMINISTERED AT THIS TIME PER REQUEST;ASSESSMENT COMPLETED;RESPIRATIONS EVEN AND UNLABORED ON RA, EXERTIONAL SOB NOTED AT TIMES;NON-PRODUCTIVE COUGH;CLEAR/DIMINISHED LUNG SOUNDS;ABDOMEN DISTENDED/FIRM ON PALPATION;WEAK PEDAL PULSES;SKIN INTACT;TELE MONITORING IN PLACE;#24G TO RH FLUSHED AND PATENT,SITE APPEARS HEALTHY;PT DENIES ANY ADDITIONAL NEEDS AND IS ENCOURAGED TO CALL FOR ASSISTANCE IF NEEDED;FALL PRECAUTIONS REMAIN IN PLACE WITH BED IN THE LOWEST POSITION AND CALL LIGHT IN REACH;FREQUENT ROUNDS MADE.
--- NOTE | 2024-04-15 09:13 | NUR ---
PT TRANSPORTED TO [facility] IN STABLE CONDITION VIA WC ACCOMPANIED BY IDRIS DEVINE
--- NOTE | 2024-04-15 09:30 | NUR ---
PT TRANSPORTED BACK TO MED/SURG ROOM 270 IN STABLE CONDITION VIA WC ACCOMPANIED BY IDRIS DEVINE
--- NOTE | 2024-04-15 11:20 | NUR ---
PT RESTING AT BEDSIDE WATCHING TV;RESPIRATIONS EVEN AND UNLABORED ON RA;PT DENIES ANY CURRENT PAIN OR DISCOMFORTS;TELE MONITORING IN PLACE;#24G TO RH REMAINS PATENT;PT EDUCATED ON PLANS TO D/C HOME THIS AFTERNOON AND VERBALIZES UNDERSTANDING;PT ENCOURAGED TO CALL FOR ASSISTANCE IF NEEDED;CALL LIGHT IN REACH;FREQUENT ROUNDS MADE.
[2024-04-15] MEDS ORDERED: DOXYCYCLINE100 MG PO (11:57)
[2024-04-15] MEDS ORDERED: LASIX20 MG PO (11:57)
--- NOTE | 2024-04-15 12:30 | NUR ---
PT MEDICATED WITH PRN ROBITUSSIN AC 5ML AT THIS TIME.
--- NOTE | 2024-04-15 13:54 | NUR ---
ALL DISCHARGE INSTRUCTIONS PROVIDED AT THIS TIME. PT INSTRUCTED TO F/U WITH PCP, TAKE ABX DIRECTED FOR 1 WEEK, TAKE LASIX 20MG DAILY, MONITOR WEIGHT AND REPORT MORE THAN 2LB INCREASE, TAKE TAPER STEROID PACK.PT VERBALIZES UNDERSTANDING AND DENIES ANY ADDITIONAL QUESTIONS OR NEEDS;IV SITE REMOVED WITH CATHETER INTACT AND TELE MONITORING D/C. WC TO BE PROVIDED FOR D/C HOME. FAMILY TO TRANSPORT PT HOME.FREQUENT ROUNDS MADE.
--- NOTE | 2024-04-15 14:55 | NUR ---
Discharge instructions given. Patient verbalizes understanding of same. Discharged in stable condition via Wheelchair to Home with family. All belongings sent with pt. PT TRANSPORTED TO [facility] VIA ACCOMPANIED BY IDRIS DEVINE.ALL PERSONAL BELONGINGS LEFT WITH PT. FAMILY TO TRANSPORT PT HOME.
== END 2024-04-15 14:53 | disposition home health service (06) | DRG 292 ==
LOC: ED 11:50 → ED-I 13:19 → ED 13:48 → MS2 13:49
PROVIDERS: Nurse Practitioner Family; ADMIT Internal Medicine; ATTEND Internal Medicine
DX: I13.0 Hypertensive heart and chronic kidney disease with heart failure and stage 1 through stage 4 chronic kidney disease, or unspecified chronic kidney disease (principal); J44.1 Chronic obstructive pulmonary disease with (acute) exacerbation; I50.9 Heart failure, unspecified; N18.9 Chronic kidney disease, unspecified; R31.9 Hematuria, unspecified; I48.0 Paroxysmal atrial fibrillation; I25.10 Atherosclerotic heart disease of native coronary artery without angina pectoris; I73.9 Peripheral vascular disease, unspecified; R35.0 Frequency of micturition; E66.9 Obesity, unspecified; Z86.73 Personal history of transient ischemic attack (TIA), and cerebral infarction without residual deficits; Z95.1 Presence of aortocoronary bypass graft; Z95.828 Presence of other vascular implants and grafts; Z86.711 Personal history of pulmonary embolism; Z79.01 Long term (current) use of anticoagulants; Z95.5 Presence of coronary angioplasty implant and graft; Z95.3 Presence of xenogenic heart valve; Z20.822 Contact with and (suspected) exposure to COVID-19
CPT/HCPCS: J0456; J0696; J1940